=== PATIENT | female | born 1955 | race African-American/Black ===

== ENCOUNTER 2017-05-27 08:05 | Day surgery (SDC) | payer MEDICARE, SELFPAY ==
[2017-05-27] VITALS (7 sets, daily range): BP systolic 110–127; BP diastolic 69–79; PULSE 51–60; RESP 16–20; TEMP 36.2–36.6; O2SAT 100; BMI 59.4
--- NOTE | 2017-05-27 10:00 | RAD_ITS ---
STUDY: X-RAY - LEFT KNEE REASON FOR EXAM: Female, 61 years old. Intraoperative digital documentation procedural images. TECHNIQUE: 6 intraoperative digital nondiagnostic view(s) of the knee. COMPARISON: None. FINDINGS: 6 intraoperative digital nondiagnostic images of the knee were obtained during the procedure. RAD/Knee 1 or 2 Views IMPRESSION: Intraoperative nondiagnostic digital documentation images. Electronically Signed: Espinoza Kelley MD at 12:58 EST , Service support ,
[2017-05-27] MEDS: Bupivacaine 0.25% 30 ML Vial (10:18)
[2017-05-27] MEDS: MethylPREDNISolone Acetate 80 MG/ML Vial (10:18)
--- NOTE | 2017-05-27 14:48 | PCM.OPRPT ---
Problem List (1) Primary osteoarthritis of left knee Status: Chronic Report of Operation Date of Procedure: 05/27/17 Pre-Operative Diagnosis: Osteoarthritis of the left knee, none operative chronic knee pain Post-Operative Diagnosis: Osteoarthritis of the left knee, none operative chronic knee pain Surgery/Procedure Performed:: Left knee superior medial, superior lateral, inferior medial genicular nerves radiofrequency ablation Description of Surgical Findings:: PROCEDURE: Left knee superior medial, superior lateral, inferior medial genicular nerves radiofrequency ablation PREOPERATIVE DIAGNOSIS: Osteoarthritis of the left knee, chronic nonoperative knee pain POSTOPERATIVE DIAGNOSIS: Osteoarthritis of the left knee, chronic nonoperative knee pain ANESTHESIA: MAC COMPLICATIONS: None BLOOD LOSS: Minimal PROCEDURE IN DETAIL: History and physical today was reviewed. Risks and benefits of the procedure were explained. The patient understood, agreed to our procedure, and informed consent was obtained. IV inserted per routine protocol. The patient was taken to the operating room, placed in a supine position with a pillow positioned underneath the knee. The left knee was prepped and draped in a sterile fashion using iodine ?3 under fluoroscopy guidance AP view of the left knee joint was visualized skin and subcutaneous tissue were anesthetized with approximately 10 cc of 1% lidocaine using a 25-gauge regular needle at the vicinity of the superior medial/superior lateral/inferior medial genicular nerves, under direct visualization fluoroscopy on AP as well as lateral view using a 20-gauge 10 cm with a 10 mm curved active tip radiofrequency ablation needle the needle passed through the skin tip of the needle was maneuvered and directed to each corresponding nerve at the vicinity of the superior medial superior lateral inferior medial genicular nerves after repeated confirmation AP oblique as well as lateral view the stylette of each needle was then removed the radiofrequency ablation probe was then inserted at each level impedance was then recorded at the superior medial to be 275 in the superior lateral 288 at the inferior medial 263 ohm motor evoked potential was then initiated to 1.5 V without any motor response at each corresponding level or the left leg, the probe was then removed intact and a total of 6 cc of preservative-free 1% lidocaine were injected in divided doses between those 3 levels, the frequency ablation probe was then inserted and radiofrequency ablation was then initiated to 80?C for 90 seconds at each level, once concluded the probe was then removed intact and a total of 6 cc of preservative-free 0.25% Marcaine with 40 mg of Depo-Medrol were injected in divided doses between those 3 levels the needles were then removed intact. Patient experienced no sinus symptoms or intravascular injection patient experienced no paresthesia the procedure was completed without any apparent difficulty any complication the patient appeared to tolerate well sensory as well as motor exam was unchanged from prior to the procedure ASSESSMENT AND PLAN: This is a 61-year-old Female with osteoarthritis of the left knee chronic nonoperative knee pain status post left-sided radiofrequency ablation of the genicular nerves at the superior medial superior lateral inferior medial. The patient will continue her current medications. The patient will follow in approximately 2 weeks for reevaluation.
== END 2017-05-27 11:31 | disposition home or self-care (01) ==
LOC: SDC 08:06 → AC 08:08
PROVIDERS: Family Provider Internal Medicine; PCP Internal Medicine; Visit Provider Anesthesiology Pain Medicine
PROC: (CPT 64640; principal; 2017-05-27 09:40)
DX: M17.0 Bilateral primary osteoarthritis of knee (principal); G89.29 Other chronic pain; M25.551 Pain in right hip; E07.9 Disorder of thyroid, unspecified; J45.909 Unspecified asthma, uncomplicated; K21.9 Gastro-esophageal reflux disease without esophagitis; F32.9 Major depressive disorder, single episode, unspecified; E66.01 Morbid (severe) obesity due to excess calories; Z68.43 Body mass index [BMI] 50.0-59.9, adult; Z78.0 Asymptomatic menopausal state; Z79.891 Long term (current) use of opiate analgesic; Z79.899 Other long term (current) drug therapy; Z85.3 Personal history of malignant neoplasm of breast; Z98.84 Bariatric surgery status; Z90.710 Acquired absence of both cervix and uterus
CPT/HCPCS: 64640; 73560; 76000; J7120

== ENCOUNTER → 2018-05-13 10:40 | Outpatient (CLI) | payer MEDICARE, SELFPAY ==
[2018-05-13 09:31] VITALS: BMI 60.9
[2018-05-13 11:26] LABS: Absolute Neutrophil Count 2.1 X10^3/uL (2.0-7.7); Basophil# 0.03 X10^3/uL; Basophil% 0.6 % (0-1); Eosinophil# 0.12 X10^3/uL; Eosinophils% 2.6 % (0-5); Hematocrit 41.1 % (37-47); Hemoglobin 12.6 g/dl (12.0-15.0); Lymphocyte % 43.3 % (19-41); Mean Corp Hgb Conc 30.7 g/gl (32-36); Mean Platelet Vol. 10.9 fl (6.2-12.0); Monocyte# 0.36 X10^3/uL; Monocyte% 7.8 % (0-10); Neutrophil % 45.5 % (47-70); Platelet Count 228 K/mm3 (150-450); RBC Distribution Width CV 15.6 % (11.6-14.6); RBC Distribution Width SD 50.2 fl (35.1-43.9); Red Blood Count 4.67 M/mm3 (4.2-5.4); White Blood Count 4.6 K/mm3 (4.4-11.0)
[2018-05-13 11:28] LABS: POSITIVE COUNT NO; POSITIVE DIFFERENTIAL NO; POSITIVE MORPHOLOGY NO
[2018-05-13 11:35] LABS: Hemoglobin A1c 6.1 % (4.2-6.3)
[2018-05-13 11:57] LABS: ALB/GLOB Ratio 0.8 RATIO (0.9-2.4); AST(SGOT) 21 U/L (15-37); Alanine Aminotransfer ALT/SGPT 23 U/L (13-56); Albumin, Serum 3.4 g/dL (3.2-5.0); Alkaline Phosphatase 117 U/L (45-117); Anion Gap 4 (5-15); BUN 12 mg/dL (7-18); BUN/Creat Ratio 17.2 RATIO (10-20); Calcium,Total 8.7 mg/dL (8.5-10.1); Chloride 106 mmol/L (98-107); EST Glomerular Filtration Rate 90 mL/min (>60); Est Glom Filt Rate - Afr Amer 109 mL/min (>60); Globulin 4.4 g/dL (2.2-4.2); Glucose 93 mg/dL (74-106); Potassium 4.1 mmol/L (3.5-5.1); Protein, Total 7.8 g/dL (6.4-8.2); Sodium Level 140 mmol/L (136-145)
[2018-05-13 12:03] LABS: Vitamin B12 211 pg/mL (211-911); Vitamin D,25 Hydroxy 25.3 ng/mL (29.95-100.01)
== END ==
PROVIDERS: Family Provider Internal Medicine; PCP Internal Medicine; Referring Provider Internal Medicine; Visit Provider Internal Medicine
DX: K91.2 Postsurgical malabsorption, not elsewhere classified (principal); F32.9 Major depressive disorder, single episode, unspecified; E66.01 Morbid (severe) obesity due to excess calories
CPT/HCPCS: 36415; 80053; 82306; 82607; 83036; 85025

== ENCOUNTER 2018-05-26 07:51 | Day surgery (SDC) | payer MEDICARE, SELFPAY ==
[2018-05-13 09:31] VITALS: BMI 60.9
[2018-05-26 08:20] VITALS: BP 134/94; PULSE 64; RESP 16; TEMP 36.4; O2SAT 96; BMI 61.2
--- NOTE | 2018-05-26 09:48 | RAD_ITS ---
STUDY: Preoperative fluoroscopic imaging- LEFT KNEE REASON FOR EXAM: Female, 62 years old. Intraoperative fluoroscopic image TECHNIQUE: view(s) of the knee. COMPARISON: None. FINDINGS: 2 fluoroscopic images were obtained with a needle overlying the knee joint with contrast being injected. 9.2 seconds of fluoroscopy time is recorded. RAD/Fluoro Guided Needle Placement IMPRESSION: 2 fluoroscopic images were obtained with a needle overlying the knee joint with contrast being injected. 9.2 seconds of fluoroscopy time is recorded. Electronically Signed: Yamile Guevara MD at 19:16 EST Tel , Service support ,
[2018-05-26] MEDS: MethylPREDNISolone Acetate 80 MG/ML Vial (09:59)
[2018-05-26] MEDS: Bupivacaine 0.25% 30 ML Vial (10:00)
[2018-05-26 10:09] VITALS: BP 120/72; BP 134/94; PULSE 65; RESP 14; TEMP 36.4; O2SAT 100
[2018-05-26 10:15] VITALS: BP 118/69; BP 134/94; PULSE 63; RESP 14; O2SAT 99
[2018-05-26 10:16] VITALS: BP 115/73; BP 134/94; PULSE 65; RESP 14; TEMP 36.4; O2SAT 100
--- NOTE | 2018-05-26 10:26 | PCM.OPRPT ---
Problem List (1) Primary osteoarthritis of left knee Status: Chronic Report of Operation Date of Procedure: 05/26/18 Pre-Operative Diagnosis: Osteoarthritis of the left knee Post-Operative Diagnosis: Osteoarthritis of the left knee Surgery/Procedure Performed:: Left knee intra-articular steroid injection under fluoroscopic guidance Description of Surgical Findings:: PROCEDURE: Left knee intra-articular steroid injection under fluoroscopic guidance PREOPERATIVE DIAGNOSIS: Osteoarthritis of the left knee POSTOPERATIVE DIAGNOSIS: Osteoarthritis of the left knee ANESTHESIA: MAC COMPLICATIONS: None BLOOD LOSS: Minimal PROCEDURE IN DETAIL: History and physical today was reviewed. Risks and benefits of the procedure were explained. The patient understood, agreed to our procedure, and informed consent was obtained. IV inserted per routine protocol. The patient was taken to the operating room, placed in a supine position the left knee was prepped and draped in a sterile fashion using iodine x3 under fluoroscopy guidance AP view of the left knee joint was visualized skin and subcutaneous tissue were anesthetized approximately 3 cc of 1% lidocaine using a 25-gauge regular needle at the medial aspect of the left knee under direct visualization fluoroscopy on AP view using a 22-gauge 3-1/2 inch spinal needle using the medial approach the needle passed through the skin the tip of the needle's maneuver and directed towards the medial aspect of the intra-articular space after positive aspiration of synovial fluid negative aspiration for blood a total of 1 cc of contrast were injected to confirm correct placement of the needle once confirmation was obtained in AP as well as oblique view a total of 4 cc of preservative-free 0.25% Marcaine with 40 mg of Depo-Medrol were injected intra-articularly the needle was then removed intact patient experienced no signs or symptoms of intravascular injection patient experienced no paresthesia. The procedure was completed without any apparent difficult, any complication. The patient appeared to tolerate well. ASSESSMENT AND PLAN: This is a 62-year-old Female with osteoarthritis of the left knee status post left knee intra-articular steroid injection under fluoroscopic guidance. The patient will continue her current medications. The patient will follow in approximately 2 weeks for reevaluation.
[2018-05-26 10:28] VITALS: BP 134/94
--- OUTSIDE RECORDS SUMMARY | 2018-07-19 07:31 | XMS RPT_ITS ---
:1955 Author Organization OHIP Care Team Providers Name Role Phone PREBISH MICHELINE GOMEZ Attending Unavailable ARGENTINA LENNON, DR. BURT Primary Care Unavailable EMIGDIO ELAINE Attending Unavailable YEN DRIVER ([facility]) Referring Unavailable GAVI BORJA ([facility]) Attending Unavailable Roxanna Basurto Attending Unavailable Oleghe, Efewongbe Referring Unavailable Roxanna Basurto Attending Unavailable Oleghe, Efewongbe Primary Care Unavailable Oleghe, Efewongbe Attending Unavailable Oleghe, Efewongbe Referring Unavailable Jemal Yanez Attending Unavailable Oleghe, Efewongbe Referring Unavailable Oleghe, Efewongbe Attending Unavailable Oleghe, Efewongbe Referring Unavailable Oleghe, Efewongbe Attending Unavailable Oleghe, Efewongbe Referring Unavailable Oleghe, Efewongbe Primary Care Unavailable Tomas Resendiz Attending Unavailable Tomas Resendiz Referring Unavailable Oleghe, Efewongbe Primary Care Unavailable PROBLEMS PROBLEMS DATE TYPE CONDITION / CODE ATTENDING STATUS SOURCE 06/07/2018 Unknown N89.8 - Other Malik Basurto [facility] disorders of vagina / Repository N89.8(ICD-10) 05/13/2018 Unknown F32.9 - Major Oleghe, Active [place] depressive disorder, [facility] single episode, Hospital unspecified / Repository F32.9(ICD-10) 05/13/2018 Unknown 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, Active [place] malabsorption, not [facility] elsewhere classified Hospital / K91.2(ICD-10) Repository 05/13/2018 Unknown E66.01 - Morbid Oleghe, Active [place] (severe) obesity due [facility] to excess calories / Hospital E66.01(ICD-10) Repository 12/17/2017 Active Unknown / BORJA, AMY Active [place] 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) [facility] [place] Repository 07/10/2017 Active Vitamin D deficiency, NA [facility] unspecified / Clinic Main E55.9(ICD-10) [place] Repository 07/10/2017 Active Encounter for NA [facility] therapeutic drug [facility] Main level monitoring / [place] Z51.81(ICD-10) Repository PROCEDURES PROCEDURES No Procedure Records FoundRESULTS RESULTS URGENT CARE VISIT Observed: 06/08/2018 Status: F Source: [place] REPORT 12:53 PM [facility] REPOSITORY [facility] [address] [place] [address] OFFICE VISIT Date of Service: 06/07/18 MR#: [id number] Acct: [id number] Name: HALLEY SANCHEZ Rep #: [id number] : 1955 Provider: Rxoanna Basurto Age/Sex: 62/F Location: [facility] Status: Signed Intake Vital Signs06/07/18 Body Mass Index (BMI) 61.2 06/07/18 Height 5 ft 3 in 06/07/18 Weight: 345 lb 06/07/18 Body Mass Index (BMI) 61.1 06/07/18 Blood Pressure 136/88 H 06/07/18 Respiratory Rate 14 Intake Visit Reasons: VAGINAL DISCHARGE Chief Complaint: DISCHARGE/UTI Clinical Manager Home Care Required: No Accompanied by: SELF Is patient in pain?: No Allergies cephalexin Allergy (Verified 06/07/18 13:51) Itching morphine Allergy (Verified 06/07/18 13:51) Itching Medications Acetaminophen [Tylenol] 325 mg PO DAILY 11/02/15 [History Confirmed 06/07/18] Duloxetine Hcl [Cymbalta] 60 mg PO DAILY 11/02/15 [History Confirmed 06/07/18] Omeprazole [Prilosec] 20 mg PO DAILY 11/02/15 [History Confirmed 06/07/18] pregabalin 100 mg capsule 100 mg PO TID 04/09/18 [History Confirmed 06/07/18] tizanidine 4 mg capsule 4 mg PO BID PRN cap 04/09/18 [History Confirmed 06/07/18] ergocalciferol (vitamin D2) 2,000 unit tablet 2,000 unit PO DAILY #90 tab 06/02/18 [Rx Confirmed 06/07/18] ferrous gluconate 324 mg (38 mg iron) tablet 324 mg PO DAILY #90 tab 06/02/18 [Rx Confirmed 06/07/18] mecobalamin (vitamin B12) 1,000 mcg disintegrating tablet,sublingual 1,000 mcg SUBLINGUAL DAILY #180 tab 06/02/18 [Rx Confirmed 06/07/18] sulfamethoxazole 800 mg-trimethoprim 160 mg tablet 1 tab PO BID #20 tab 06/07/18 [Rx Confirmed 06/07/18] PFSH Medical History Vitamin deficiency (Chronic) Skin cancer (Chronic) Osteoarthritis (Chronic) GERD (gastroesophageal reflux disease) (Chronic) Chronic headaches (Chronic) Breast cancer (Chronic) UTI (urinary tract infection) (Resolved) Asthma (Chronic) Anemia (Chronic) Surgical History History of Achilles tendon repair (Acute) History of bilateral mastectomy (Acute) History of gastric bypass (Acute) History of partial hysterectomy (Acute) History of repair of hiatal hernia (Acute) Family History Father Alcoholism Arthritis Mother Alcoholism Sister Asthma Arthritis Breast cancer Depression Brother Asthma Myocardial infarction Social History Smoking Status: Never smoker alcohol intake: never substance use type: does not use what type of physical activity do you participate in: none HPI HPI Chief Complaint: DISCHARGE/UTI Details: HALLEY SANCHEZ, is a 62 F who presents to the office today for urgent appt. Pt sts that she has noted white d/c in the vaginal area. She also noted frequent urination and burning. She feel shilpi head is foggy and questions if she has a bladder infection. ROS Const Constitutional: Positive for body ache and fatigue; no fever(s) or headache(s) Eyes Eyes: No light sensitivity, discharge or change in vision ENT ENT: No headache(s), nasal congestion, nasal discharge, sinus pressure, post nasal drip or sore throat Resp Respiratory: No cough Cardio Cardiology: No chest pain at rest, chest pain with exertion or shortness of breath Gastro GI: No diarrhea, nausea/dyspepsia or Vomiting blood/hematemesis Genitourinary-Female: Positive for burning urination, painful urination, urinary frequency, Vaginal Itching and vaginal odor Neuro Neurology: No headache(s) Endo Endocrine: Positive for fatigue Exam Const General: cooperative, no acute distress Nutritional Appearance: obese Orientation: alert, oriented x3 HENMT Head: atraumatic, normocephalic Nose: nasal mucous membranes and turbinates normal Mouth: moist mucous membranes Eyes Sclera: sclerae normal Cornea: corneas normal Pupils: PERRL EOM: EOM intact bilaterally Neck Neck: no lymphadenopathy, trachea midline, supple Neck mass: No Thyroid: thyroid normal Resp Effort AND Inspection: normal respiratory effort Auscultation: Bilateral: Clear to Auscultation Cardio Palpation: normal PMI Rate: regular rate Rhythm: regular rhythm Heart Sounds: S1 normal, S2 normal, no click, no gallops, no murmurs, no rubs GI Auscultation: normal bowel sounds Percussion: normal to percussion Palpation: soft, no hepatosplenomegaly, nontender Skin General: no rashes or lesions noted Neuro General: alert, oriented x3, CN's II-XI intact bilaterally, no focal motor deficits Results [facility] Office Urine Color Yellow Last Edit by Eugenia Colindres on 06/07/18 13:54 LARGE AMOUNT OF LEUKOCYTES Assessment AND Plan Problems 1. Acute cystitis with hematuria N30.01 2. Vaginal candidiasis B37.3 Plan Advised pt that we do no do vaginal exams and is symptoms do not improve to see PCP. Urine +, will send out culture. Advised to use antx. diflucan as directed. Advised of adequate fluid hydration Orders Orders: Medications New: Discontinued: fluconazole (Diflucan) may repeat second dose 72 hrs 150 mg PO Q3D 2 doses 2 tabs 0RF after first dose if symptoms persist Discontinued [place] son: By Stop Date Coding Level of Care Code Off vis,new,level 3 Diagnoses Acute cystitis with hematuria N30.01 Hematuria presence: with hematuria Urinary tract infection type: acute cystitis Vaginal candidiasis B37.3 06/08/18 1253 <Electronically signed by Roxanna HARRINGTON> Date Roxanna HARRINGTON Cosigner Signature: Date (if applicable) CC: URINALYSIS, COMPLETE Collected: 06/07/2018 Status: F Source: [place] 1:50 PM [facility] REPOSITORY Order Comment: How was Urine Obtained? CLEAN CATCH TYPE CODE TESTS RESULT OUT OF RANGE REFERENCE UNITS LAB L400.3000 Yellow COLOR Normal Yellow LAB L400.3050 Clear Normal CLARITY Clear LAB L400.3200 Normal mg/dl Normal GLUCOSE, UR Normal LAB L400.3300 Negative mg/dL Normal BILIRUBIN URINE Negative LAB L400.3400 Negative mg/dl Normal KETONE UR Negative LAB L400.3465 1.002-1.030 Normal SP.GR. DIPSTX 1.010 LAB L400.3550 5.0 - 8.0 pH UR Normal 7.0 LAB L400.3600 Negative mg/dl PROT Normal DIPSTX Negative LAB L400.3700 Normal mg/dl Normal UROBILI Normal LAB L400.3750 Negative Normal NITRITE UR Negative LAB L400.3780 Negative /ul Normal OCCULT BLOOD-UR Negative LAB L400.3800 Negative /ul High LEUK ESTERASE 500 LAB L400.4050 0-5 /hpf WBC Normal 5-10 SEEN LAB L400.4100 0-5 /hpf 0 Normal RBC-UA SEEN LAB L400.4150 5-10 /hpf SQUAM Normal EPI 0-5 SEEN LAB L400.4300 None Seen /hpf 1+ Normal BACTERIA LAB L400.4350 <or=2+ /hpf 0 Normal MUCUS, URINE SEEN Performed By: #### L400.0001 #### Laboratory [address] [place], [address] Observed: 06/07/2018 Status: F Source: [place] CULTURE, URINE 1:50 PM [facility] REPOSITORY Urine Culture ORGANISM 1: Mixed Gram Positive Organisms [place] Count 1000-10,000 MIX CULTURE Mixed contaminants. Submit a new specimen if indicated. Performed By: #### M100.0650 #### Laboratory [address] [place], [address] OPERATIVE REPORT Observed: 05/26/2018 Status: F Source: [place] 10:30 AM [facility] REPOSITORY [facility] Medical Records Department [address] [place] [address] Operative Report 05/26/18 1026 MR#: [id number] Acct: [id number] Name: HALLEY SANCHEZ Rep #: [id number] : 1955 62 From: Tomas Resendiz MD PCP: Catrachita Ham MD Status: REG [facility] Location: [place] [address] Problem List (1) Primary osteoarthritis of left knee Status: Chronic Report of Operation Date of Procedure: 05/26/18 Pre-Operative Diagnosis: Osteoarthritis of the left knee Post-Operative Diagnosis: Osteoarthritis of the left knee Surgery/Procedure Performed:: Left knee intra-articular steroid injection under fluoroscopic guidance Description of Surgical Findings:: PROCEDURE: Left knee intra-articular steroid injection under fluoroscopic guidance PREOPERATIVE DIAGNOSIS: Osteoarthritis of the left knee POSTOPERATIVE DIAGNOSIS: Osteoarthritis of the left knee ANESTHESIA: MAC COMPLICATIONS: None BLOOD LOSS: Minimal PROCEDURE IN DETAIL: History and physical today was reviewed. Risks and benefits of the procedure were explained. The patient understood, agreed to our procedure, and informed consent was obtained. IV inserted per routine protocol. The patient was taken to the operating room, placed in a supine position the left knee was prepped and draped in a sterile fashion using iodine x3 under fluoroscopy guidance AP view of the left knee joint was visualized skin and subcutaneous tissue were anesthetized approximately 3 cc of 1% lidocaine using a 25-gauge regular needle at the medial aspect of the left knee under direct visualization fluoroscopy on AP view using a 22-gauge 3-1/2 inch spinal needle using the medial approach the needle passed through the skin the tip of the needle's maneuver and directed towards the medial aspect of the intra-articular space after positive aspiration of synovial fluid negative aspiration for blood a total of 1 cc of contrast were injected to confirm correct placement of the needle once confirmation was obtained in AP as well as oblique view a total of 4 cc of preservative-free 0.25% Marcaine with 40 mg of Depo-Medrol were injected intra- articularly the needle was then removed intact patient experienced no signs or symptoms of intravascular injection patient experienced no paresthesia. The procedure was completed without any apparent difficult, any complication. The patient appeared to tolerate well. ASSESSMENT AND PLAN: This is a 62-year-old Female with osteoarthritis of the left knee status post left knee intra-articular steroid injection under fluoroscopic guidance. The patient will continue her current medications. The patient will follow in approximately 2 weeks for reevaluation. 05/26/18 1030 <Electronically signed by Tomas Resendiz MD> Date Tomas Resendiz MD CC: Catrachita Ham MD; Tomas Resendiz Signed FLUORO GUIDED NEEDLE Observed: 05/26/2018 Status: F Source: [place] PLACEMENT 3:26 AM [facility] REPOSITORY [facility] Imaging Services [address] [place] [address] Fluoro Guided Needle Placement MR#: [id number] Acct: [id number] Name: HALLEY SANCHEZ Rep #: [id number] : 1955 F 62 From: Yamile Guevara MD PCP: Catrachita Ham MD Status: [facility] Study: Fluoro Guided Needle Placement Date of Exam: 05/26/18 Exam# [id number] Ordering Dr: Tomas Resendiz MD STUDY: Preoperative fluoroscopic imaging- LEFT KNEE REASON FOR EXAM: Female, 62 years old. Intraoperative fluoroscopic image TECHNIQUE: view(s) of the knee. COMPARISON: None. FINDINGS: 2 fluoroscopic images were obtained with a needle overlying the knee joint with contrast being injected. 9.2 seconds of fluoroscopy time is recorded. RAD/Fluoro Guided Needle Placement IMPRESSION: 2 fluoroscopic images were obtained with a needle overlying the knee joint with contrast being injected. 9.2 seconds of fluoroscopy time is recorded. Electronically Signed: Yamile Guevara MD at 19:16 EST Tel , Service support , CC: Cartachita Ham MD; Tomas Resendiz Wildlife [employer] Research Ecologist: Signed INTERNAL MEDICINE Observed: 05/13/2018 Status: F Source: [place] OFFICE VISIT 5:12 PM [facility] Internal Medicine [address] [place] [address] [place] [address] OFFICE VISIT Date of Service: 05/13/18 MR#: [id number] Acct: [id number] Name: HALLEY SANCHEZ Rep #: [id number] : 1955 Provider: Catrachita Ham MD Age/Sex: 62/F Location: [facility] Status: Signed Intake Vital Signs05/13/18 Height 5 ft 3 in 05/13/18 Weight: 344 lb 05/13/18 Body Mass Index (BMI) 60.9 05/13/18 Blood Pressure 143/82 H Intake Visit Reasons: 1 mo f/u Chief Complaint: 1 Mo FU Is patient in pain?: Yes (Rt groin AND knees) Pain scale (1-10): 7 Allergies cephalexin Allergy (Verified 05/13/18 09:32) Itching morphine Allergy (Verified 05/13/18 09:32) Itching Medications Acetaminophen [Tylenol] 325 mg PO DAILY 11/02/15 [History Confirmed 05/13/18] Duloxetine Hcl [Cymbalta] 60 mg PO DAILY 11/02/15 [History Confirmed 05/13/18] Omeprazole [Prilosec] 20 mg PO DAILY 11/02/15 [History Confirmed 05/13/18] pregabalin 100 mg capsule 100 mg PO TID 04/09/18 [History Confirmed 05/13/18] tizanidine 4 mg capsule 4 mg PO BID PRN cap 04/09/18 [History Confirmed 05/13/18] [facility] Medical History Vitamin deficiency (Chronic) Skin cancer (Chronic) Osteoarthritis (Chronic) GERD (gastroesophageal reflux disease) (Chronic) Chronic headaches (Chronic) Breast cancer (Chronic) UTI (urinary tract infection) (Resolved) Asthma (Chronic) Anemia (Chronic) Surgical History History of Achilles tendon repair (Acute) History of bilateral mastectomy (Acute) History of gastric bypass (Acute) History of partial hysterectomy (Acute) History of repair of hiatal hernia (Acute) Family History Father Alcoholism Arthritis Mother Alcoholism Sister Asthma Arthritis Breast cancer Depression Brother Asthma Myocardial infarction Social History Smoking Status: Never smoker alcohol intake: never substance use type: does not use what type of physical activity do you participate in: none HPI HPI Chief Complaint: 1 Mo FU Details: HALLEY SANCHEZ, is a 62yo F who presents to the office today for follow-up of groin/hip/abdominal pain. This pain he says have been ongoing for many years. Investigations done at the [facility] were without any significant abnormality. She also had a CAT scan done in 2013 without any significant abnormality. Currently following up with pain management so far there has been no significant improvement in both his knee and hip pain. She denies any concerns with bowel or bladder habits. No history of falls. No blood in her stool she also denies nausea or vomiting. ROS Const Constitutional: No chills, fatigue, fever(s), frequent falls, malaise, weakness, sleep problems or change in appetite Eyes Eyes: No blurry vision, change in vision, double vision, discharge or visual disturbances ENT ENT: No abnormal hearing, ear pain, ear pressure, tinnitus or dizziness/vertigo Resp Respiratory: No cough, shortness of breath or wheezing Cardio Cardiology: No chest pain at rest, chest pain with exertion, shortness of breath, dyspnea on exertion, generalized swelling, irregular heart rhythm, lightheadedness, orthopnea, fast heart rate or palpitations Gastro GI: Positive for abdominal pain (Rt groin); no change in bowel habits, constipation, diarrhea, nausea/dyspepsia or vomiting Genitourinary-Female: No difficulty urinating, burning urination, painful urination, urinary incontinence, urinary frequency, urinary urgency, urinary hesitancy, urinary retention, Frequent nighttime urination/ nocturia, sexual problems, genital lesions, abnormal vaginal bleeding, pelvic pain, vaginal dryness, vaginal odor or Vaginal Itching Musc Musculoskeletal: Positive for joint pain (Knees); no back pain, joint swelling, limited range of motion, numbness, tingling or muscle weakness Skin Skin: No change in skin color, itching, rash or wounds Breast Breast: No breast lump or breast pain Neuro Neurology: No frequent falls, weakness, visual disturbances, abnormal hearing, numbness, tingling, unsteady gait/balance, dizziness, loss of vision or memory loss Psych Psychiatric: No change in appetite, No memory loss, No anxiety, No depression, No Thoughts of harming yourself/Others Endo Endocrine: No fatigue, heat intolerance, increased thirst/drinking, increased hunger or increased urination Aller/Imm Allergy/Immunologic: No wheezing, itchy eyes or seasonal allergy symptoms Jose/Lymp Hematologic/Lymphatic: No easy bleeding, easy bruising or enlarged lymph nodes Exam Const General: cooperative, no acute distress Nutritional Appearance: obese morbidly obese [facility] Head: atraumatic, normocephalic, normal to inspection Ears: hearing grossly normal bilaterally Resp Effort AND Inspection: normal respiratory effort, able to speak in complete sentences Auscultation: Bilateral: Clear to Auscultation Cardio Rate: regular rate Rhythm: regular rhythm Heart Sounds: S1 normal, S2 normal GI Palpation: soft (Mild tenderness on deep palpation of the left lower quadrant.), no hepatosplenomegaly Musc Musculoskeletal: No muscle weakness Neuro General: alert, awake, oriented x3, moves all extremities, CN's II-XI intact bilaterally Extrem General: no clubbing, cyanosis or edema Psych Appearance: grossly normal Mental Status: mental status grossly normal Affect: normal affect Assessment AND Plan 1. Abdominal pain R10.9 Plan Primarily right groin pain. Most likely referred pain from her back. Review of her records with no significant abnormality based on investigations done so far. Currently following up with pain management. Continue plan as per pain management. Weight loss strongly recommended. 2. 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 Labs ordered. Follow-up with results. Orders Orders: 3. Morbid obesity E66.01 Plan Status post gastric bypass. 9 with a BMI of 60. Had been with the why weight program without any significant improvement. Lifestyle and dietary modifications discussed. Readdress at next visit. This note was generated with Ne[employer]ensation software. It may contain incorrect words, spelling, and punctuation that were not noted in checking the note before signing. Orders Orders: Plan Detail Other Orders Orders: Coding Level of Care Code Off vis,est,level 4 Diagnoses Abdominal pain R10.9 Postoperative malabsorption K91.2 Morbid obesity E66.01 05/13/18 1712 <Electronically signed by Catrachita Ham MD> Date Catrachita Ham MD Cosigner Signature: Date (if applicable) CC: CBC W/DIFF, AUTOMATED Collected: 05/13/2018 Status: F Source: [place] 10:45 AM [facility] REPOSITORY TYPE CODE TESTS RESULT OUT OF RANGE REFERENCE UNITS LAB L100.1000 4.4-11.0 K/mm3 Normal WBC 4.6 LAB L100.1200 4.2-5.4 M/mm3 Normal RBC 4.67 LAB L100.1300 12.0-15.0 g/dl Normal HGB 12.6 LAB L100.1400 37-47 % Normal HCT 41.1 LAB L100.1500 81-99 fL Normal MCV 88.0 LAB L100.1600 27.0-32.0 pg Normal MCH 27.0 LAB L100.1700 32-36 g/gl Low MCHC 30.7 LAB L100.1810 11.6-14.6 % High RDW CV 15.6 LAB L100.1820 35.1-43.9 fl High RDW SD 50.2 LAB L100.1900 150-450 K/mm3 Normal PLT 228 LAB L100.2000 6.2-12.0 fl Normal MPV 10.9 LAB L100.2100 47-70 % Low NEUT% 45.5 LAB L100.2200 19-41 % High LY% 43.3 LAB L100.2300 0-10 % Normal MONO% 7.8 LAB L100.2400 0-5 % Normal EO% 2.6 LAB L100.2500 0-1 % Normal BASO% 0.6 LAB L100.2550 0.0-0.9 % Normal IM GRAN % 0.200 Result Comment: IG% - Immature Granulocytes (promyelocytes, myelocytes and metamyelocytes) > 1% indicates that a LEFT SHIFT is Present. LAB L100.2620 2.0-7.7 X10 3/uL Normal Absolute Neut 2.1 LAB L100.2720 0.83-4.51 X10 3/ul Normal Absolute Lymph 2.00 Performed By: #### L100.0100 #### Laboratory [address] [place], [place], [id number] HEMOGLOBIN A1C Collected: 05/13/2018 Status: F Source: [place] 10:45 AM [facility] REPOSITORY TYPE CODE TESTS RESULT OUT OF RANGE REFERENCE UNITS LAB L501.9985 4.2-6.3 % Normal HGB A1C 6.1 Performed By: #### L501.9985 #### Laboratory [address] [place], [address] COMPREHENSIVE METABOLIC Collected: 05/13/2018 Status: F Source: [facility] 10:45 AM [facility] REPOSITORY TYPE CODE TESTS RESULT OUT OF RANGE REFERENCE UNITS LAB L501.0100 74-106 mg/dL Normal GLU 93 Result Comment: Please note revised GLUCOSE reference range effective 2017. LAB L501.1000 7-18 mg/dL Normal BUN 12 LAB L501.1100 0.55-1.02 mg/dL Normal CREAT,SERUM 0.70 Result Comment: The validity of the calculated GFR AND GFRAA in patients over 70 years has not been determined. Clinical correlation is essential. LAB L501.1110 >60 mL/min Normal EST GFR 90 Result Comment: Non- GFR Calc LAB L501.1115 >60 mL/min Normal EST GFR - AA 109 Result Comment: GFR Calc LAB L501.1300 10-20 RATIO Normal BUN/CRE 17.2 LAB L501.1500 6.4-8.2 g/dL T Normal PROT 7.8 LAB L501.1800 3.2-5.0 g/dL Normal ALB 3.4 LAB L501.1950 2.2-4.2 g/dL High GLOB 4.4 LAB L501.2000 0.9-2.4 RATIO Low A/G 0.8 LAB L501.2200 8.5-10.1 mg/dL CA Normal 8.7 LAB L501.4100 15-37 U/L Normal AST 21 LAB L501.4305 45-117 U/L Normal ALK P 117 LAB L501.4405 13-56 U/L Normal ALT 23 LAB L501.4600 0.20-1.00 mg/dL T Normal BILI 0.80 LAB L501.5300 136-145 mmol/L NA Normal 140 LAB L501.5600 3.5-5.1 mmol/L K Normal 4.1 LAB L501.5900 98-107 mmol/L CL Normal 106 LAB L501.6100 21.0-32.0 mmol/L Normal CO2 30.0 LAB L501.6200 5-15 Low GAP 4 Performed By: #### L500.4050 #### Laboratory [address] [place], [address] VITAMIN B12 Collected: 05/13/2018 Status: F Source: [place] 10:45 AM [facility] REPOSITORY TYPE CODE TESTS RESULT OUT OF RANGE REFERENCE UNITS LAB L503.0105 211-911 pg/mL Normal Vitamin B12 211 Performed By: #### L503.0105, L506.1000 #### Laboratory [address] [place], [address] VITAMIN D,25 HYDROXY Collected: 05/13/2018 Status: F Source: [place] 10:45 AM [facility] REPOSITORY TYPE CODE TESTS RESULT OUT OF REFERENCE UNITS RANGE LAB L506.1000 29.95-100.01 ng/mL Low Vitamin D 25.3 25-OH Result Comment: Vitamin D 25(OH) Status Range Deficiency <20 ng/mL (50nmol/L) Insuffciency 20 - 30 ng/mL (50 - 75 nmol/L) Sufficiency 30 - 100 ng/mL (75 - 250 nmol/L) Toxicity >100 ng/mL (>250 nmol/L) Performed By: #### L503.0105, L506.1000 #### Laboratory [address] [place], [address] INTERNAL MEDICINE Observed: 04/10/2018 Status: F Source: [place] OFFICE VISIT 5:24 PM [facility] REPOSITORY [facility] [address] [place] [address] OFFICE VISIT Date of Service: 04/09/18 MR#: [id number] Acct: [id number] Name: HALLEY SANCHEZ Rep #: [id number] : 1955 Provider: Catrachita Ham MD Age/Sex: 62/F Location: [facility] Status: Signed Intake Vital Signs04/09/18 Height 5 ft 3 in 04/09/18 Weight: 340 lb 04/09/18 Body Mass Index (BMI) 60.2 04/09/18 Blood Pressure 132/66 H Intake Visit Reasons: EST CARE, TRANSF FROM [facility] Chief Complaint: Est Care - Transfer from [facility] Is patient in pain?: Yes (LLQ) Pain scale (1-10): 7 Allergies cephalexin Allergy (Verified 04/09/18 16:17) Itching morphine Allergy (Verified 04/09/18 16:17) Itching Medications Acetaminophen [Tylenol] 325 mg PO DAILY 11/02/15 [History Confirmed 04/09/18] Duloxetine Hcl [Cymbalta] 60 mg PO DAILY 11/02/15 [History Confirmed 04/09/18] Omeprazole [Prilosec] 20 mg PO DAILY 11/02/15 [History Confirmed 04/09/18] pregabalin 100 mg capsule 100 mg PO TID 04/09/18 [History Confirmed 04/09/18] tizanidine 4 mg capsule 4 mg PO BID PRN cap 04/09/18 [History Confirmed 04/09/18] PFSH Medical History Vitamin deficiency (Chronic) Skin cancer (Chronic) Osteoarthritis (Chronic) GERD (gastroesophageal reflux disease) (Chronic) Chronic headaches (Chronic) Breast cancer (Chronic) UTI (urinary tract infection) (Resolved) Asthma (Chronic) Anemia (Chronic) Surgical History History of Achilles tendon repair (Acute) History of bilateral mastectomy (Acute) History of gastric bypass (Acute) History of partial hysterectomy (Acute) History of repair of hiatal hernia (Acute) Family History Father Alcoholism Arthritis Mother Alcoholism Sister Asthma Arthritis Breast cancer Depression Brother Asthma Myocardial infarction Social History Smoking Status: Never smoker alcohol intake: never substance use type: does not use what type of physical activity do you participate in: none HPI HPI Chief Complaint: Est Care - Transfer from [facility] Details: HALLEY SANCHEZ, is a 62yo F who presents to the office today establish care. She had previously followed up at the [facility]. She also has some complaints. She reports left lower abdominal pain which has been ongoing for several years and has progressively worsened. Per patient pain is said to be worse in the morning and from rising from a sitting position. There has been no associated change in bowel habit. She denies any known precipitating or significantly relieving factors. She has been worked up in the past without any abnormality detected. She also currently follows up with pain management. ROS Const Constitutional: No chills, fever(s), frequent falls, malaise, sleep problems or change in appetite Eyes Eyes: No blurry vision, change in vision, double vision, discharge or visual disturbances ENT ENT: No abnormal hearing, ear pain, ear pressure, tinnitus or dizziness/vertigo Resp Respiratory: No cough, shortness of breath or wheezing Cardio Cardiology: No chest pain at rest, chest pain with exertion, shortness of breath, dyspnea on exertion, generalized swelling, irregular heart rhythm, lightheadedness, orthopnea, fast heart rate or palpitations Gastro GI: Positive for abdominal pain (LLQ); no change in bowel habits, constipation, diarrhea or vomiting Genitourinary-Female: No difficulty urinating, burning urination, painful urination, urinary incontinence, urinary frequency, urinary urgency, urinary hesitancy, urinary retention, Frequent nighttime urination/ nocturia, sexual problems, genital lesions, abnormal vaginal bleeding, pelvic pain, vaginal dryness, vaginal odor or Vaginal Itching Musc Musculoskeletal: Positive for back pain (Lower left side) and radiating pain into limb (Left thigh); no joint swelling, limited range of motion, muscle weakness, numbness or tingling Skin Skin: No change in skin color, itching, rash or wounds Breast Breast: No breast lump or breast pain Neuro Neurology: No frequent falls, abnormal hearing, numbness, tingling, unsteady gait/balance, dizziness, loss of vision, memory loss or visual disturbances Psych Psychiatric: No memory loss, No anxiety, No change in appetite, Positive for depression, No Thoughts of harming yourself/Others Endo Endocrine: No heat intolerance, increased thirst/drinking, increased hunger or increased urination Aller/Imm Allergy/Immunologic: No wheezing, itchy eyes or seasonal allergy symptoms Jose/Lymp Hematologic/Lymphatic: No easy bleeding, easy bruising or enlarged lymph nodes Exam Const General: cooperative, no acute distress Nutritional Appearance: obese morbidly obese [facility] Head: atraumatic, normocephalic, normal to inspection Ears: hearing grossly normal bilaterally Resp Effort AND Inspection: normal respiratory effort, able to speak in complete sentences Auscultation: Bilateral: Clear to Auscultation Cardio Rate: regular rate Rhythm: regular rhythm Heart Sounds: S1 normal, S2 normal GI Palpation: soft (Mild tenderness on deep palpation of the left lower quadrant.), no hepatosplenomegaly Musc Musculoskeletal: No muscle weakness Neuro General: alert, awake, oriented x3, moves all extremities, CN's II-XI intact bilaterally Extrem General: no clubbing, cyanosis or edema Psych Appearance: grossly normal Mental Status: mental status grossly normal Affect: normal affect Assessment AND Plan 1. Abdominal pain R10.9 Plan Said to have been ongoing for years and has progressively worsened. Workup in the past without any significant abnormality however patient states that she has not gotten a CAT scan or MRI. No change in bowel habit, blood in stool or weight changes. Will request records from the [facility]. Possibly get a CAT scan on review of records. Follow-up in a month. 2. Depression F32.9 Plan Stable. Continue current medication. Follow-up at next visit 3. Morbid obesity E66.01 Plan Status post gastric bypass surgery. However significantly regained weight after surgery. Currently following up at the bariatric center at [facility]. Lifestyle/dietary modifications discussed. Follow-up at next visit. This note was generated with Neosensation software. It may contain incorrect words, spelling, and punctuation that were not noted in checking the note before signing. Plan Detail Other Medications New: Coding Level of Care Code Off vis,new,level 3 Diagnoses Abdominal pain R10.9 Depression F32.9 Morbid obesity E66.01 04/10/18 1724 <Electronically signed by Catrachita Ham MD> Date Catrachita Ham MD Cosigner Signature: Date (if applicable) CC: Observed: 12/17/2017 Status: F Source: [place] BACT/CAND VAG [facility] 11:35 AM [facility] REPOSITORY Sp. Request/Comment: - Swab Smear Result - BACTERIAL VAGINOSIS RESULT: Stain results consistent with bacterial vaginosis. --> ABNORMAL ALERT No Yeast observed Clue cells present --> ABNORMAL ALERT No Polymorphonuclear Leukocytes Performed By: #### BVCNSM #### [facility] [address], [place] [address] CNOV Observed: 12/17/2017 Status: COMPLETED Source: [place] 11:00 AM [facility] REPOSITORY Office Visit (WOOB) DANIELHALLEY Lakeisha ([id number]) 1955 F Date Time Provider Department 12/17/17 11:00 AM GAVI BORJA ([facility]) WOOB During your visit today, we recorded the following information about you: Blood pressure Weight 126/82 156.5 kg Gavi Borja APRN.SHEET METAL PATTERN CUTTER 12/17/2017 2:23 PM Addendum Halley Sanchez is a 62 year old female who presents for vaginal pruritis for 3 days. Has noticed vaginal dryness for the past few years. Vaginal discharge: none. Itching: YES Dyspareunia: N/A Fever/chills: No Abdominal pain: Yes, long-term for years - no definitive diagnosis Bladder: frequency Bowel: No blood in stool, pain with BM, tarry stool, persistent diarrhea or constipation Any new sexual partners or concern for STD exposure: No Any history of STDs: None Does your partner have any new complaints: No Are you currently taking any medications to treat vaginitis: No Do you use feminine sprays, douches or deodorants: No} Contraception: hysterectomy Past medical, surgical, social history, medications and allergies reviewed and updated. OBJECTIVE: BP 126/82 Wt 345 lb (156.5kg) LMP 04/07/2011 GENERAL: Well developed, well nourished female in no apparent distress ABDOMEN: soft, no masses and Mild tenderness in Generalized PELVIC: external genitalia normal, normal Bartholin's glands, urethra, [place]'s glands, no vulvar lesions, no cervical lesions, good vaginal support, normal appearing perineal body and perianal region, abnormal discharge small amount white BIMANUAL: unable to evaluate due to body habitus. Component Results Component Value Range AND Units Status Performing Lab Glucose, Urine neg Neg mg/dL Final Unknown Bilirubin, Urine neg Neg Final Unknown Ketones, Urine neg Neg Final Unknown Specific [place], Ur 1.010 1.005 - 1.030 Final Unknown Hemoglobin/Blood,Ur neg Neg Final Unknown pH, Urine 5.0 4.5 - 8.0 Final Unknown Protein, Urine neg Neg mg/dL Final Unknown Urobilinogen, Urine normal Normal (<1.1) EU Final Unknown Nitrites neg Neg Final Unknown Leukocytes neg Neg Final Unknown Color/Appearance yellow, clear comment: Final Unknown Quality Check Yes yes/no Final Unknown ASSESSMENT/PLAN: 1. Dysuria - ICD9: 788.1, ICD10: R30.0 (primary diagnosis) acute - UA DIP B/O - negative 2. Vagina itching - ICD9: 698.1, ICD10: L29.8 - CLOTRIMAZOLE-BETAMETHASONE 1 %-0.05 % TOPICAL CREAM - BACT/DANETTE VAG GRAM STAIN - RAPID BV B/O - positive - Given verbal and written instruction on vulvar hygiene. - Replens lubricant for intercourse and a moisturizer for vaginal dryness. Or KY jelly for intercourse. - Coconut oil. - Lotrisone cream as needed. - Florajen-3 probiotic Will notify of lab results. Follow-up as needed. MARIUSZ Alvarez APRN.CNP 12/17/2017 11:30 AM Signed Minimizing irritation of the vulva (area around the vagina) Wear white cotton underwear. Avoid synthetic fabrics and tight clothing. Sleep wearing shorts or pajama bottoms without underwear. Shower as soon as possible after exercise. Avoid clothing detergents and soaps with perfumes or dyes. Use warm (not hot) water to wash the vulva and if you use soap use a product designed for sensitive skin (like Dove or Cetaphil). Do not douche or use creams/powders in the vulvar area unless instructed by your physician. If you must douche, use only plain warm water. Make sure the vulva is dry before dressing by patting dry with a towel. Avoid vigorous rubbing with the towel. You may want to use the blow dryer (on the cool setting only!) on the vulva. The most important way to let your body heal is by avoiding scratching. Many patients find it difficult to avoid scratching at night when they are most aware of the itchiness. You can try taking Benadryl just before bedtime. Some women find it helpful to wear cotton gloves to bed to avoid scratching at night. Replens lubricant for intercourse and a moisturizer for vaginal dryness. Or KY jelly for intercourse. Coconut oil. Lotrisone cream as needed. Florajen-3 probiotic Referring Provider: SELF [200] Allergies As of Date: 12/17/2017 Noted Allergy Reaction CEPHALEXIN 02/17/2005 7 - Swelling MORPHINE 12/26/2006 9 - Itching Date Reviewed: 12/17/2017 Reviewed by: Gavi Borja - Fully Assessed Primary Visit Diagnosis:Vagina itching [L29.8] Other Visit Diagnoses:BV (bacterial vaginosis) [N76.0, B96.89] Dysuria [R30.0] Order(s):UA DIP B/O [8760105] Order #: [id number] clotrimazole-betamethasone 1-0.05 % (LOTRISONE)Disp: Rfl: BACT/DANETTE VAG GRAM STAIN [SQBVCNSM] Order #: [id number] FUTURE RAPID BV B/O [8191421] Order #: [id number] metroNIDAZOLE (FLAGYL) 500 mg tabletTake 1 tablet by mouth twice daily for 7 days.Disp: 14 tabletRfl: 0 Prescriptions as of 12/17/2017 Sig: METRONIDAZOLE 500 MG TABLET Take 1 tablet by mouth twice * OMEPRAZOLE 20 MG CAPSULE,DANNY* take 1 capsule by mouth once * MOMETASONE 50 MCG/ACTUATION N* Use 2 Sprays in the nose once* ALBUTEROL SULFATE HFA 90 MCG/* inhale 2 puffs by mouth every* PREGABALIN 100 MG CAPSULE Take 100 mg by mouth three ti* BACLOFEN 10 MG TABLET Take 10 mg by mouth twice jayden* DICLOFENAC 1 % TOPICAL GEL Apply 1 g to affected area on* ERGOCALCIFEROL (VITAMIN D2) 5* Take 1 capsule by mouth twice* IPRATROPIUM BROMIDE 42 MCG (0* place 2 sprays into each nost* LIDOCAINE 2 % MUCOSAL JELLY Apply 1 application to affect* Patient not taking: Reported on 11/05/2017 DULOXETINE 60 MG CAPSULE,DANNY* Take 1 capsule by mouth once * TRIAMCINOLONE ACETONIDE 0.1 %* Apply 1 application to affect* Patient not taking: Reported on 11/05/2017 HEATING PADS 1 Each once daily. use one XL* * PEDIATRIC MULTIVITAMIN-IRON C* 1 tablet once daily. Take by * Problem List As Of Date 12/17/2017 Noted Resolved MORBID OBESITY [E66.01] INVALID FOR* Eating disorder, unspecified [F50.9] INVALID FOR* Severe episode of recurrent major depressive di*INVALID FOR* CHRONIC RHINITIS [J31.0] INVALID FOR* More... Malignant neoplasm of breast (female), unspecif*INVALID FOR*11/05/2013 More... Anemia, unspecified [D64.9] INVALID FOR*06/23/2014 Abdominal pain, other specified site [R10.9] INVALID FOR*01/01/2011 Migraine without aura, without mention of intra*INVALID FOR*11/05/2013 Other bursitis disorders [M71.50] INVALID FOR*08/09/2011 Vitamin D deficiency [E55.9] INVALID FOR* Bronchitis, not specified as acute or chronic [*INVALID FOR*07/03/2013 Lumbar radicular syndrome [M54.16] INVALID FOR* Symptomatic states associated with artificial m*INVALID FOR*11/05/2013 Insomnia [G47.00] INVALID FOR* Vitamin D deficiency [E55.9] INVALID FOR*06/06/2010 Obstructive Sleep Apnea (Adult) (Pediatric) [G4*INVALID FOR* More... Abnormal weight gain [R63.5] INVALID FOR*06/25/2011 Pernicious Anemia [D51.0] INVALID FOR* ER+ (Estrogen Receptor Positive Status) [Z17.0] INVALID FOR* Breast Cancer, Stage 1 [C50.919] INVALID FOR* More... Dysphagia [R13.10] INVALID FOR*11/05/2013 Abdominal pain, epigastric [R10.13] INVALID FOR*01/01/2011 Heel pain [M79.673] INVALID FOR*06/23/2014 Vitamin B 12 deficiency [E53.8] INVALID FOR* DJD (degenerative joint disease) of knee [M17.1*INVALID FOR* More... Complex endometrial hyperplasia without atypia *INVALID FOR*11/05/2016 Gastric bypass status for obesity [Z98.84] INVALID FOR* Left knee pain [M25.562] INVALID FOR*11/05/2013 Tendonitis [M77.9] INVALID FOR*11/05/2013 Congenital pes planus [Q66.50] INVALID FOR*11/05/2016 RLQ abdominal pain [R10.31] INVALID FOR*08/11/2015 Abdominal muscle strain [S39.011A] INVALID FOR*08/11/2015 Chronic RLQ pain [R10.31, G89.29] INVALID FOR* Lichen planus [L43.9] INVALID FOR* More... Urge incontinence of urine [N39.41] INVALID FOR* Chronic pain disorder [G89.4] INVALID FOR* More... Other instructions from your clinician: Minimizing irritation of the vulva (area around the vagina) Wear white cotton underwear. Avoid synthetic fabrics and tight clothing. Sleep wearing shorts or pajama bottoms without underwear. Shower as soon as possible after exercise. Avoid clothing detergents and soaps with perfumes or dyes. Use warm (not hot) water to wash the vulva and if you use soap use a product designed for sensitive skin (like Dove or Cetaphil). Do not douche or use creams/powders in the vulvar area unless instructed by your physician. If you must douche, use only plain warm water. Make sure the vulva is dry before dressing by patting dry with a towel. Avoid vigorous rubbing with the towel. You may want to use the blow dryer (on the cool setting only!) on the vulva. The most important way to let your body heal is by avoiding scratching. Many patients find it difficult to avoid scratching at night when they are most aware of the itchiness. You can try taking Benadryl just before bedtime. Some women find it helpful to wear cotton gloves to bed to avoid scratching at night. Replens lubricant for intercourse and a moisturizer for vaginal dryness. Or KY jelly for intercourse. Coconut oil. Lotrisone cream as needed. Florajen-3 probiotic Prescriptions ordered this encounter Disp Refills Start End CLOTRIMAZOLE-BETAMETHASONE 1 %-0.05 * 12/17/2017 12/17/2017 Class: Suppress Questions Route: TOPICAL METRONIDAZOLE 500 MG TABLET 14 t* 0 12/17/2017 12/24/2017 Route: ORAL Sig: Take 1 tablet by mouth twice daily for 7 days. Encounter Status:Closed by GAVI BORJA on 12/17/17 PROGRESS Observed: 12/17/2017 Status: COMPLETED Source: [place] 10:57 AM [facility] REPOSITORY HNO ID: [id number] Author: Gavi Borja Service: (none) Author Type: Nurse Practitioner Type: Progress Notes Filed: 12/17/2017 2:23 PM Note Text: Halley Sanchez is a 62 year old female who presents for vaginal pruritis for 3 days. Has noticed vaginal dryness for the past few years. Vaginal discharge: none. Itching: YES Dyspareunia: N/A Fever/chills: No Abdominal pain: Yes, long-term for years - no definitive diagnosis Bladder: frequency Bowel: No blood in stool, pain with BM, tarry stool, persistent diarrhea or constipation Any new sexual partners or concern for STD exposure: No Any history of STDs: None Does your partner have any new complaints: No Are you currently taking any medications to treat vaginitis: No Do you use feminine sprays, douches or deodorants: No} Contraception: hysterectomy Past medical, surgical, social history, medications and allergies reviewed and updated. OBJECTIVE: BP 126/82 Wt 345 lb (156.5kg) LMP 04/07/2011 GENERAL: Well developed, well nourished female in no apparent distress ABDOMEN: soft, no masses and Mild tenderness in Generalized PELVIC: external genitalia normal, normal Bartholin's glands, urethra, [place]'s glands, no vulvar lesions, no cervical lesions, good vaginal support, normal appearing perineal body and perianal region, abnormal discharge small amount white BIMANUAL: unable to evaluate due to body habitus. Component Results Component Value Range AND Units Status Performing Lab Glucose, Urine neg Neg mg/dL Final Unknown Bilirubin, Urine neg Neg Final Unknown Ketones, Urine neg Neg Final Unknown Specific [place], Ur 1.010 1.005 - 1.030 Final Unknown Hemoglobin/Blood,Ur neg Neg Final Unknown pH, Urine 5.0 4.5 - 8.0 Final Unknown Protein, Urine neg Neg mg/dL Final Unknown Urobilinogen, Urine normal Normal (<1.1) EU Final Unknown Nitrites neg Neg Final Unknown Leukocytes neg Neg Final Unknown Color/Appearance yellow, clear comment: Final Unknown Quality Check Yes yes/no Final Unknown ASSESSMENT/PLAN: 1. Dysuria - ICD9: 788.1, ICD10: R30.0 (primary diagnosis) acute - UA DIP B/O - negative 2. Vagina itching - ICD9: 698.1, ICD10: L29.8 - CLOTRIMAZOLE-BETAMETHASONE 1 %-0.05 % TOPICAL CREAM - BACT/DANETTE VAG GRAM STAIN - RAPID BV B/O - positive - Given verbal and written instruction on vulvar hygiene. - Replens lubricant for intercourse and a moisturizer for vaginal dryness. Or KY jelly for intercourse. - Coconut oil. - Lotrisone cream as needed. - Florajen-3 probiotic Will notify of lab results. Follow-up as needed. Gavi Borja APRN.SHEET METAL PATTERN CUTTER PROGRESS Observed: 11/05/2017 Status: COMPLETED Source: [place] 2:37 PM [facility] REPOSITORY HNO ID: [id number] Author: Jelly Fountain (Sandra) Allen Service: (none) Author Type: Nurse Practitioner Type: Progress Notes Filed: 11/05/2017 4:38 PM Note Text: Subjective HPI Patient presents with: Cough: nasal AND chest congestion, headache AND fever. Sx started 4 days ago. Tmax 102.3 yest Hx of asthma Mucinex otc with minimal relief. Review of Systems Constitutional: Positive for fever. Negative for chills and malaise/fatigue. HENT: Positive for congestion and sore throat. Negative for ear pain. Eyes: Negative for discharge and redness. Respiratory: Positive for cough. Negative for hemoptysis, sputum production, shortness of breath and wheezing. Gastrointestinal: Negative for abdominal pain, diarrhea, nausea and vomiting. Skin: Negative for rash. Neurological: Positive for headaches. PAST MEDICAL HISTORY Diagnosis Date - Acute gastritis without mention of hemorrhage - Breast cancer, stage 1 (HCC) 11/25/2009 - Carcinoma in situ of breast [id number] left breast - Chronic rhinitis 03/15/2005 - Complex endometrial hyperplasia without atypia - Congenital pes planus 01/07/2012 - DJD (degenerative joint disease) of knee 03/02/2011 [facility] 12/27/2011, moderate osteoarthritis in left knee, Synvisc injections every 6 months. - ER+ (estrogen receptor positive status) 11/25/2009 - Hiatal hernia 2001 - Left knee pain 12/28/2011 [facility] 12/27/2011, moderate osteoarthritis in left knee, Synvisc injections every 6 months. - Lumbar radicular syndrome 04/25/2009 Pain Management: Dr. Quesada. - Major Depressive Disorder, Recurrent, Severe 11/26/2003 - Malignant neoplasm of breast (female), unspecified site 03/15/2005 DCIS left breast Jul. 2001 - Migraine without aura, without mention of intractable migraine without mention of status migrainosus 07/25/2006 - Morbid obesity (HCC) 03-11-09 stated BMI 60.8 Ht: 63 Wt: 344 lbs - Obstructive sleep apnea (adult) (pediatric) 06/29/2009 Mild LIA. - Other and unspecified disorders of eating 11/26/2003 BINGE EATING DISORDER - Other diseases of trachea and bronchus, not elsewhere classified 03/15/2005 Reactive Airway - SEROMA, POST OP 10/14/2006 - Unspecified asthma(493.90) [id number] - Vitamin D deficiency 04/26/2009 PAST SURGICAL HISTORY Procedure Laterality Date - APPENDECTOMY 1997 incidental at time of GBP in [place] - BX OF BREAST; INCISIONAL Bx of breast, incisional, left - COLONOSCOP W/ OR W/O [facility] SPEC 03/26/2012 Colonoscopy - EGD W/O [facility] SPECIMEN W/BX 01/10/10 post gastric bypass, minimal inflammation - GASTRIC BYPASS,OBESE<100CM BLAKE-EN-Y 1997 [place], incidental appendectomy, choelcystectomy, liver biopsy - I AND D HEMATOMA, SEROMA 11/08/2006 Right chest seroma excised - LEFT HEART CATH,PERCUTANEOUS Cardiac cath, L heart - MASTECTOMY PARTIAL 2001 left breast, completed radiation - MASTECTOMY,SIMPLE 01/04/2006 left breast with SLND - MASTECTOMY,SIMPLE 01/04/2006 right breast - REMOVAL GALLBLADDER 1997 in conjunction with GBP in [place] - REPAIR OF ACHILLES TENDON September 16, 2009 Right heel - REPAIR OF ACHILLES TENDON September [place] dehiscence. - repair of hiatal hernia 2000 - VAGINAL HYSTERECTOMY ALLERGIES Cephalexin; Morphine MEDICATIONS pregabalin (LYRICA) 100 mg capsule Take 100 mg by mouth three times daily. ergocalciferol, vitamin D2, (VITAMIN D) 50,000 unit capsule Take 1 capsule by mouth twice a week. ipratropium bromide (ATROVENT) 42 mcg (0.06 %) nasal spray place 2 sprays into each nostril at bedtime DULoxetine (CYMBALTA) 60 mg capsule Take 1 capsule by mouth once daily. omeprazole (PRILOSEC) 20 mg capsule Take 1 capsule by mouth once daily. Heating Pads pads 1 Each once daily. use one XL heating once daily for aches and pains. pediatric multivitamins with iron (FLINTSTONES PLUS IRON) ORAL chewable tablet 1 tablet once daily. Take by mouth with meal. baclofen (LIORESAL) 10 mg tablet Take 10 mg by mouth twice daily. diclofenac sodium (VOLTAREN) 1 % topical gel Apply 1 g to affected area once daily. To knees mometasone (NASONEX) 50 mcg/actuation nasal spray Use 2 Sprays in the nose once daily. lidocaine (XYLOCAINE) 2 % jelly Apply 1 application to affected area as needed. triamcinolone acetonide (KENALOG) 0.1 % cream Apply 1 application to affected area twice daily as needed. Apply to affected area. albuterol HFA (PROAIR HFA) 90 mcg/actuation inhaler inhale 2 puffs by mouth every 4 hours if needed for wheezing or shortness of breath FAMILY HISTORY Problem Relation Age of Onset - Heart Mother 58 yrs old, CHF - Stroke Father 84 yrs old, CVA - Alzheimer's Disease Father - Breast Cancer Sister dx age 35 - Heart Sister CHF - Heart Brother 3 AZ's, Pacemaker - Stroke Brother - Tuberculosis [OTHER] Brother tested positive Social History Substance Use Topics - Smoking status: Never Smoker - Smokeless tobacco: Never Used - Alcohol use No Objective Physical Exam Constitutional: She is well-developed, well-nourished, and in no distress. HENT: Head: Normocephalic. Right Ear: Tympanic membrane, external ear and ear canal normal. Left Ear: Tympanic membrane, external ear and ear canal normal. Nose: Rhinorrhea present. Right sinus exhibits no maxillary sinus tenderness and no frontal sinus tenderness. Left sinus exhibits no maxillary sinus tenderness and no frontal sinus tenderness. Mouth/Throat: Posterior oropharyngeal erythema (PND) present. Eyes: Conjunctivae are normal. Neck: Normal range of motion. Neck supple. Cardiovascular: Normal rate, regular rhythm and normal heart sounds. Pulmonary/Chest: Effort normal and breath sounds normal. No respiratory distress. She has no wheezes. She has no rales. Abdominal: Soft. She exhibits no distension. There is no tenderness. Lymphadenopathy: She has no cervical adenopathy. Skin: Skin is warm and dry. No rash noted. Nursing note and vitals reviewed. ASSESSMENT/PLAN: 1. Viral URI with cough - ICD9: 465.9, ICD10: J06.9, B97.89 - Discussed viral etiology and rationale for treatment. - Symptomatic treatment with prn analgesia - Supportive care with fluids and rest - The patient may also use OTC decongestants prn, OTC cough and cold meds as needed, warm salt water gargles, throat lozenges and/or OTC throat spray as needed and nasal saline gtts and suction prn. - Follow up in 3-5 days if symptoms persist or sooner if worsening of symptoms Prescription instructions reviewed with patient as applicable. Patient advised if symptoms do not improve or if symptoms worsen sooner, to contact their primary care physician. Potential red flag symptoms discussed with the patient. Reviewed appropriate action plan to take if red flag symptoms occur. Patient agreeable to treatment plan. Jelly Eduardo APRN.JASON CNOV Observed: 11/05/2017 Status: COMPLETED Source: [place] 2:15 PM [facility] REPOSITORY Office Visit ([facility]) HALLEY SANCHEZ ([id number]) 1955 F Date Time Provider Department 11/05/17 2:15 PM JELLY EDUARDO (ELECTRICIAN SUPERVISOR SUBSTATION) [facility] During your visit today, we recorded the following information about you: Temperature Pulse Respiration Blood pressure 97.6 degrees 62/minute 18/minute 126/86 Weight 154.2 kg Jelly Eduardo APRN.SHEET METAL PATTERN CUTTER 11/05/2017 4:38 PM Signed Subjective HPI Patient presents with: Cough: nasal AND chest congestion, headache AND fever. Sx started 4 days ago. Tmax 102.3 yest Hx of asthma Mucinex otc with minimal relief. Review of Systems Constitutional: Positive for fever. Negative for chills and malaise/fatigue. HENT: Positive for congestion and sore throat. Negative for ear pain. Eyes: Negative for discharge and redness. Respiratory: Positive for cough. Negative for hemoptysis, sputum production, shortness of breath and wheezing. Gastrointestinal: Negative for abdominal pain, diarrhea, nausea and vomiting. Skin: Negative for rash. Neurological: Positive for headaches. PAST MEDICAL HISTORY Diagnosis Date - Acute gastritis without mention of hemorrhage - Breast cancer, stage 1 (HCC) 11/25/2009 - Carcinoma in situ of breast [id number] left breast - Chronic rhinitis 03/15/2005 - Complex endometrial hyperplasia without atypia - Congenital pes planus 01/07/2012 - DJD (degenerative joint disease) of knee 03/02/2011 [facility] 12/27/2011, moderate osteoarthritis in left knee, Synvisc injections every 6 months. - ER+ (estrogen receptor positive status) 11/25/2009 - Hiatal hernia 2001 - Left knee pain 12/28/2011 [facility] 12/27/2011, moderate osteoarthritis in left knee, Synvisc injections every 6 months. - Lumbar radicular syndrome 04/25/2009 Pain Management: Dr. Quesada. - Major Depressive Disorder, Recurrent, Severe 11/26/2003 - Malignant neoplasm of breast (female), unspecified site 03/15/2005 DCIS left breast 2001 - Migraine without aura, without mention of intractable migraine without mention of status migrainosus 07/25/2006 - Morbid obesity (HCC) 03-11-09 stated BMI 60.8 Ht: 63 Wt: 344 lbs - Obstructive sleep apnea (adult) (pediatric) 06/29/2009 Mild LIA. - Other and unspecified disorders of eating 11/26/2003 BINGE EATING DISORDER - Other diseases of trachea and bronchus, not elsewhere classified 03/15/2005 Reactive Airway - SEROMA, POST OP 10/14/2006 - Unspecified asthma(493.90) [id number] - Vitamin D deficiency 04/26/2009 PAST SURGICAL HISTORY Procedure Laterality Date - APPENDECTOMY 1997 incidental at time of GBP in [place] - BX OF BREAST; INCISIONAL Bx of breast, incisional, left - COLONOSCOP W/ OR W/O [facility] SPEC 03/26/2012 Colonoscopy - EGD W/O [facility] SPECIMEN W/BX 01/10/10 post gastric bypass, minimal inflammation - GASTRIC BYPASS,OBESE<100CM BLAKE-EN-Y 1997 [place], incidental appendectomy, choelcystectomy, liver biopsy - I AND D HEMATOMA, SEROMA 11/08/2006 Right chest seroma excised - LEFT HEART CATH,PERCUTANEOUS Cardiac cath, L heart - MASTECTOMY PARTIAL 2001 left breast, completed radiation - MASTECTOMY,SIMPLE 01/04/2006 left breast with SLND - MASTECTOMY,SIMPLE 01/04/2006 right breast - REMOVAL GALLBLADDER 1997 in conjunction with GBP in [place] - REPAIR OF ACHILLES TENDON September 16, 2009 Right heel - REPAIR OF ACHILLES TENDON September [place] dehiscence. - repair of hiatal hernia 2000 - VAGINAL HYSTERECTOMY ALLERGIES Cephalexin; Morphine MEDICATIONS pregabalin (LYRICA) 100 mg capsule Take 100 mg by mouth three times daily. ergocalciferol, vitamin D2, (VITAMIN D) 50,000 unit capsule Take 1 capsule by mouth twice a week. ipratropium bromide (ATROVENT) 42 mcg (0.06 %) nasal spray place 2 sprays into each nostril at bedtime DULoxetine (CYMBALTA) 60 mg capsule Take 1 capsule by mouth once daily. omeprazole (PRILOSEC) 20 mg capsule Take 1 capsule by mouth once daily. Heating Pads pads 1 Each once daily. use one XL heating once daily for aches and pains. pediatric multivitamins with iron (FLINTSTONES PLUS IRON) ORAL chewable tablet 1 tablet once daily. Take by mouth with meal. baclofen (LIORESAL) 10 mg tablet Take 10 mg by mouth twice daily. diclofenac sodium (VOLTAREN) 1 % topical gel Apply 1 g to affected area once daily. To knees mometasone (NASONEX) 50 mcg/actuation nasal spray Use 2 Sprays in the nose once daily. lidocaine (XYLOCAINE) 2 % jelly Apply 1 application to affected area as needed. triamcinolone acetonide (KENALOG) 0.1 % cream Apply 1 application to affected area twice daily as needed. Apply to affected area. albuterol HFA (PROAIR HFA) 90 mcg/actuation inhaler inhale 2 puffs by mouth every 4 hours if needed for wheezing or shortness of breath FAMILY HISTORY Problem Relation Age of Onset - Heart Mother 58 yrs old, CHF - Stroke Father 84 yrs old, CVA - Alzheimer's Disease Father - Breast Cancer Sister dx age 35 - Heart Sister CHF - Heart Brother 3 AZ's, Pacemaker - Stroke Brother - Tuberculosis [OTHER] Brother tested positive Social History Substance Use Topics - Smoking status: Never Smoker - Smokeless tobacco: Never Used - Alcohol use No Objective Physical Exam Constitutional: She is well-developed, well-nourished, and in no distress. HENT: Head: Normocephalic. Right Ear: Tympanic membrane, external ear and ear canal normal. Left Ear: Tympanic membrane, external ear and ear canal normal. Nose: Rhinorrhea present. Right sinus exhibits no maxillary sinus tenderness and no frontal sinus tenderness. Left sinus exhibits no maxillary sinus tenderness and no frontal sinus tenderness. Mouth/Throat: Posterior oropharyngeal erythema (PND) present. Eyes: Conjunctivae are normal. Neck: Normal range of motion. Neck supple. Cardiovascular: Normal rate, regular rhythm and normal heart sounds. Pulmonary/Chest: Effort normal and breath sounds normal. No respiratory distress. She has no wheezes. She has no rales. Abdominal: Soft. She exhibits no distension. There is no tenderness. Lymphadenopathy: She has no cervical adenopathy. Skin: Skin is warm and dry. No rash noted. Nursing note and vitals reviewed. ASSESSMENT/PLAN: 1. Viral URI with cough - ICD9: 465.9, ICD10: J06.9, B97.89 - Discussed viral etiology and rationale for treatment. - Symptomatic treatment with prn analgesia - Supportive care with fluids and rest - The patient may also use OTC decongestants prn, OTC cough and cold meds as needed, warm salt water gargles, throat lozenges and/or OTC throat spray as needed and nasal saline gtts and suction prn. - Follow up in 3-5 days if symptoms persist or sooner if worsening of symptoms Prescription instructions reviewed with patient as applicable. Patient advised if symptoms do not improve or if symptoms worsen sooner, to contact their primary care physician. Potential red flag symptoms discussed with the patient. Reviewed appropriate action plan to take if red flag symptoms occur. Patient agreeable to treatment plan. Jelly Eduardo APRN.JASON Edaurdo APRN.JASON 11/05/2017 2:41 PM Signed RESPIRATORY INFECTION GENERAL INFORMATION: An upper respiratory tract infection, or cold, is a viral infection of the airway passages. It can be caused by any one of almost 200 different viruses. Common symptoms include a runny or stuffy nose, sneezing, watery eyes, sore throat, cough, and slight fever. Colds are contagious, especially during the first 3 or 4 days and cannot be cured by antibiotics. They are spread by coughs, sneezes, and direct contact, especially [id number]-[id number]. A respiratory tract infection usually clears up in a few days, but some people may be sick for a week or two. There is no cure for the common cold since colds are caused by viruses. Antibiotics don?t kill viruses so they will not make your child?s cold better. But you can help your child feel better until the cold goes away. There may also be a mild fever (under 102?F or 38.9?C) or headache. All this can make yourchild fussy too.Colds usually last about a week but can even last for 10 days. If there is fever, it should come at the start of the cold and then go away.Mucus (MYOO-kus) in your child?s nose may turn yellow or green after 3 or 4 days. Children can get one cold right after another. So it may seem like your child is sick for a long time. INSTRUCTIONS: To Help a Stuffy Nose Put a cool-mist humidifier in your child?s room. A humidifier (wesn-PCU-ke-fye-ur) puts water into the air to help clear your child?s stuffy nose. Be sure to clean the humidifier often. Thin the mucus. Use saline (saltwater) nose drops. Never use any other kind of nose drops unless your child?s doctor prescribes them. Clear your baby?s nose with a suction bulb. (This is also called an ear bulb.) Squeeze the bulb first and hold it in. Gently put the rubber tip into one nostril, and slowly release the bulb. This will suck the clogged mucus out of the nose. It works best for babies younger than 6 months. CONTACT YOUR DOCTOR IF : - Fever lasting more than 2 or 3 days - Cold symptoms that get worse, instead of better, after a week. - Trouble breathing or drinking - Ear pain - Acting very sleepy or fussy - Coughing more than 10 days RETURN IMMEDIATELY IF: 1. If cough up thick yellow, green, martines, or bloody sputum. 2. If having difficulty breathing, pain in the chest, or if skin or nails look martines or blue. 3. If shaking chills or a temperature over 102 F (39 C). SUCTIONING THE NOSE WITH A BULB SYRINGE A stuffy nose can make it hard for your baby to breathe. This can make your baby fussy, especially when he/she tries to eat or sleep. Suctioning makes it easier for your baby to breathe and eat. If needed, it is best to suction your baby's nose before a feeding or bedtime. Avoid suctioning after feeding. This may cause your baby to vomit. Before using the bulb syringe, you should thin the mucus with normal saline (salt water) nose drops as instructed below. Making Saline Nose Drops 1. Add 1/4 level teaspoon of salt to the 8 ounces (1 cup) of water. 2. Heat to boil to dissolve the salt 3. Allow to cool before using. 4. Keep the solution in a clean, covered jar. 5. Discard the solution after 1 week. Note: You may also use purchased saline nose drops. Procedure 1. Wash your hands well before and after suctioning. 2. Lay your baby on his back with head positioned facing ceiling. Have someone hold your baby in this position or swaddle your baby in a blanket with arms at their side to keep them still. 3. Using a nose dropper, drop 3-4 drops saline solution into one nostril, unless otherwise directed by your baby's doctor. Hold baby in this position for 1 minute. 4. Before placing the bulb into the nostril, push all the air out of it with your thumb on the top of the bulb. 5. Carefully and gently, place the tip of the bulb into a nostril until nostril is sealed. 6. Slowly release thumb letting the air come back into the bulb. The suction will pull the mucus out of the nose and into the bulb 7. Remove the bulb from baby's nose and squeeze mucus out of bulb into a tissue. 8. Repeat steps 3 through 8 on other nostril. You may need to suction each nostril several times to clear all the mucus. 9. Clean bulb syringe after each use with warm soapy water and rinse thoroughly. When suctioning the mouth, be sure to put the suction bulb towards the inside cheek of your child's mouth. If the bulb is placed in the middle of the mouth, your baby may gag and vomit. Make Sure Your Child Drinks Lots of Liquids Make sure your child drinks plenty of liquids to avoid getting dehydration. Clear liquids may work better than milk or formula if your child?s nose is very stuffy. A Warning About Cold and Cough Medicines The [place] [employer] strongly recommends that naoz-gni-scekyxc cough and cold medications not be given to infants and children younger than 2 years because of the risk of life-threatening side effects. Also, several studies show that cold and cough products don?t work in children younger than 6 years and can have potentially serious side effects. Referring Provider: SELF [200] Allergies As of Date: 11/05/2017 Noted Allergy Reaction CEPHALEXIN 02/17/2005 7 - Swelling MORPHINE 12/26/2006 9 - Itching Date Reviewed: 11/05/2017 Reviewed by: Kandi Khan LPN - Fully Assessed Reason for Visit: Cough [28] Cmt: nasal AND chest congestion, headache AND fever. Sx started 4 days ago. Tmax 102.3 yest Primary Visit Diagnosis:Viral URI with cough [J06.9, B97.89] Order(s):predniSONE (DELTASONE) 20 mg tabletTake 2 tablets by mouth once daily for 5 days. Take daily with food.Disp: 10 tabletRfl: 0 Sqbgyfehkvllxqz-Llupcuulk-VR (BROMFED DM) 2-30-10 mg/5 mL syrupTake 10 mL by mouth four times daily as needed for up to 7 days.Disp: 240 mLRfl: 0 Prescriptions as of 11/05/2017 Sig: PREGABALIN 100 MG CAPSULE Take 100 mg by mouth three ti* ERGOCALCIFEROL (VITAMIN D2) 5* Take 1 capsule by mouth twice* IPRATROPIUM BROMIDE 42 MCG (0* place 2 sprays into each nost* DULOXETINE 60 MG CAPSULE,DANNY* Take 1 capsule by mouth once * OMEPRAZOLE 20 MG CAPSULE,DANNY* Take 1 capsule by mouth once * HEATING PADS 1 Each once daily. use one XL* * PEDIATRIC MULTIVITAMIN-IRON C* 1 tablet once daily. Take by * PREDNISONE 20 MG TABLET Take 2 tablets by mouth once * BROMPHENIRAMINE-PSEUDOEPHEDRI* Take 10 mL by mouth four time* BACLOFEN 10 MG TABLET Take 10 mg by mouth twice jayden* DICLOFENAC 1 % TOPICAL GEL Apply 1 g to affected area on* MOMETASONE 50 MCG/ACTUATION N* Use 2 Sprays in the nose once* Patient not taking: Reported on 11/05/2017 LIDOCAINE 2 % MUCOSAL JELLY Apply 1 application to affect* Patient not taking: Reported on 11/05/2017 TRIAMCINOLONE ACETONIDE 0.1 %* Apply 1 application to affect* Patient not taking: Reported on 11/05/2017 ALBUTEROL SULFATE HFA 90 MCG/* inhale 2 puffs by mouth every* Patient not taking: Reported on 11/05/2017 Problem List As Of Date 11/05/2017 Noted Resolved MORBID OBESITY [E66.01] INVALID FOR* Eating disorder, unspecified [F50.9] INVALID FOR* Severe episode of recurrent major depressive di*INVALID FOR* CHRONIC RHINITIS [J31.0] INVALID FOR* More... Malignant neoplasm of breast (female), unspecif*INVALID FOR*11/05/2013 More... Anemia, unspecified [D64.9] INVALID FOR*06/23/2014 Abdominal pain, other specified site [R10.9] INVALID FOR*01/01/2011 Migraine without aura, without mention of intra*INVALID FOR*11/05/2013 Other bursitis disorders [M71.50] INVALID FOR*08/09/2011 Vitamin D deficiency [E55.9] INVALID FOR* Bronchitis, not specified as acute or chronic [*INVALID FOR*07/03/2013 Lumbar radicular syndrome [M54.16] INVALID FOR* Symptomatic states associated with artificial m*INVALID FOR*11/05/2013 Insomnia [G47.00] INVALID FOR* Vitamin D deficiency [E55.9] INVALID FOR*06/06/2010 Obstructive Sleep Apnea (Adult) (Pediatric) [G4*INVALID FOR* More... Abnormal weight gain [R63.5] INVALID FOR*06/25/2011 Pernicious Anemia [D51.0] INVALID FOR* ER+ (Estrogen Receptor Positive Status) [Z17.0] INVALID FOR* Breast Cancer, Stage 1 [C50.919] INVALID FOR* More... Dysphagia [R13.10] INVALID FOR*11/05/2013 Abdominal pain, epigastric [R10.13] INVALID FOR*01/01/2011 Heel pain [M79.673] INVALID FOR*06/23/2014 Vitamin B 12 deficiency [E53.8] INVALID FOR* DJD (degenerative joint disease) of knee [M17.1*INVALID FOR* More... Complex endometrial hyperplasia without atypia *INVALID FOR*11/05/2016 Gastric bypass status for obesity [Z98.84] INVALID FOR* Left knee pain [M25.562] INVALID FOR*11/05/2013 Tendonitis [M77.9] INVALID FOR*11/05/2013 Congenital pes planus [Q66.50] INVALID FOR*11/05/2016 RLQ abdominal pain [R10.31] INVALID FOR*08/11/2015 Abdominal muscle strain [S39.011A] INVALID FOR*08/11/2015 Chronic RLQ pain [R10.31, G89.29] INVALID FOR* Lichen planus [L43.9] INVALID FOR* More... Urge incontinence of urine [N39.41] INVALID FOR* Chronic pain disorder [G89.4] INVALID FOR* More... Other instructions from your clinician: RESPIRATORY INFECTION GENERAL INFORMATION: An upper respiratory tract infection, or cold, is a viral infection of the airway passages. It can be caused by any one of almost 200 different viruses. Common symptoms include a runny or stuffy nose, sneezing, watery eyes, sore throat, cough, and slight fever. Colds are contagious, especially during the first 3 or 4 days and cannot be cured by antibiotics. They are spread by coughs, sneezes, and direct contact, especially vyzn-lw-mgwg. A respiratory tract infection usually clears up in a few days, but some people may be sick for a week or two. There is no cure for the common cold since colds are caused by viruses. Antibiotics don?t kill viruses so they will not make your child?s cold better. But you can help your child feel better until the cold goes away. There may also be a mild fever (under 102?F or 38.9?C) or headache. All this can make yourchild fussy too.Colds usually last about a week but can even last for 10 days. If there is fever, it should come at the start of the cold and then go away.Mucus (MYOO-kus) in your child?s nose may turn yellow or green after 3 or 4 days. Children can get one cold right after another. So it may seem like your child is sick for a long time. INSTRUCTIONS: To Help a Stuffy Nose Put a cool-mist humidifier in your child?s room. A humidifier (kbme-WJI-yf-fye-ur) puts water into the air to help clear your child?s stuffy nose. Be sure to clean the humidifier often. Thin the mucus. Use saline (saltwater) nose drops. Never use any other kind of nose drops unless your child?s doctor prescribes them. Clear your baby?s nose with a suction bulb. (This is also called an ear bulb.) Squeeze the bulb first and hold it in. Gently put the rubber tip into one nostril, and slowly release the bulb. This will suck the clogged mucus out of the nose. It works best for babies younger than 6 months. CONTACT YOUR DOCTOR IF : - Fever lasting more than 2 or 3 days - Cold symptoms that get worse, instead of better, after a week. - Trouble breathing or drinking - Ear pain - Acting very sleepy or fussy - Coughing more than 10 days RETURN IMMEDIATELY IF: 1. If cough up thick yellow, green, martines, or bloody sputum. 2. If having difficulty breathing, pain in the chest, or if skin or nails look martines or blue. 3. If shaking chills or a temperature over 102 F (39 C). SUCTIONING THE NOSE WITH A BULB SYRINGE A stuffy nose can make it hard for your baby to breathe. This can make your baby fussy, especially when he/she tries to eat or sleep. Suctioning makes it easier for your baby to breathe and eat. If needed, it is best to suction your baby's nose before a feeding or bedtime. Avoid suctioning after feeding. This may cause your baby to vomit. Before using the bulb syringe, you should thin the mucus with normal saline (salt water) nose drops as instructed below. Making Saline Nose Drops 1. Add 1/4 level teaspoon of salt to the 8 ounces (1 cup) of water. 2. Heat to boil to dissolve the salt 3. Allow to cool before using. 4. Keep the solution in a clean, covered jar. 5. Discard the solution after 1 week. Note: You may also use purchased saline nose drops. Procedure 1. Wash your hands well before and after suctioning. 2. Lay your baby on his back with head positioned facing ceiling. Have someone hold your baby in this position or swaddle your baby in a blanket with arms at their side to keep them still. 3. Using a nose dropper, drop 3-4 drops saline solution into one nostril, unless otherwise directed by your baby's doctor. Hold baby in this position for 1 minute. 4. Before placing the bulb into the nostril, push all the air out of it with your thumb on the top of the bulb. 5. Carefully and gently, place the tip of the bulb into a nostril until nostril is sealed. 6. Slowly release thumb letting the air come back into the bulb. The suction will pull the mucus out of the nose and into the bulb 7. Remove the bulb from baby's nose and squeeze mucus out of bulb into a tissue. 8. Repeat steps 3 through 8 on other nostril. You may need to suction each nostril several times to clear all the mucus. 9. Clean bulb syringe after each use with warm soapy water and rinse thoroughly. When suctioning the mouth, be sure to put the suction bulb towards the inside cheek of your child's mouth. If the bulb is placed in the middle of the mouth, your baby may gag and vomit. Make Sure Your Child Drinks Lots of Liquids Make sure your child drinks plenty of liquids to avoid getting dehydration. Clear liquids may work better than milk or formula if your child?s nose is very stuffy. A Warning About Cold and Cough Medicines The [place] [employer] strongly recommends that lygk-lim-kuapikb cough and cold medications not be given to infants and children younger than 2 years because of the risk of life- threatening side effects. Also, several studies show that cold and cough products don?t work in children younger than 6 years and can have potentially serious side effects. Prescriptions ordered this encounter Disp Refills Start End PREDNISONE 20 MG TABLET 10 t* 0 11/05/2017 11/10/2017 Route: ORAL Sig: Take 2 tablets by mouth once daily for 5 days. Take daily with food. [id number] 2* 240 * 0 11/05/2017 11/12/2017 Route: ORAL Sig: Take 10 mL by mouth four times daily as needed for up to 7 days. Disposition: Return if symptoms worsen or fail to improve. Follow-up and Disposition History Recorded Encounter Status:Closed by JELLY EDUARDO on 11/05/17 CNCO Observed: 09/20/2017 Status: COMPLETED Source: [place] 12:00 AM [facility] REPOSITORY Letter Text [facility]ly [facility] Department of Internal Medicine [address]. [place], [place] [address] Halley Sanchez [id number] [facility] [id number] September 20, 2017 Dear , Due to unforeseen circumstances, there has been a change in the schedule for Emigdio Crowell MD Your original appointment scheduled for 01/08/2018 at 8:00 AM has been rescheduled to 01/08/2018 at 4:00 PM. If this is not convenient, please give our office a call at [phone]. I apologize for any inconvenience this may cause you. Sincerely, Department of Internal Medicine [facility] XR SPINE LUMBAR Observed: 08/14/2017 Status: F Source: [facility] AP/LAT 3:01 PM [facility] REPOSITORY ORIGINAL XR SPINE LUMBAR AP/LAT CLINICAL STATEMENT: back pain COMPARISON: None FINDINGS:AP and lateral views of the lumbosacral spine demonstrate 5 lumbar type vertebral bodies. Moderate degenerative changes with disc space narrowing and endplate sclerosis is noted at all visualiz ed levels. There is moderate facet degenerative change present. IMPRESSION:Diffuse degenerative change Interpreted By: Kerry High MD Preliminary Report By: Kerry High MD Electronically Signed By: Kerry High MD Dictated Date: 08/14/2017 4:47:29 PM Prelim Date: 08/14/2017 4:47:29 PM Sign Date: 08/14/2017 4:47:52 PM MAGNESIUM Collected: 07/10/2017 Status: F Source: [place] 9:05 AM [facility] REPOSITORY TYPE CODE TESTS RESULT OUT OF REFERENCE UNITS RANGE LAB MG 1.7-2.3 mg/dL Magnesium 2.0 Performed By: #### MG1, VITD #### [facility] [address], [place] [address] VITAMIN D 25 HYDROXY Collected: 07/10/2017 Status: F Source: [place] 9:05 AM [facility] REPOSITORY TYPE CODE TESTS RESULT OUT OF REFERENCE UNITS RANGE LAB VITD 31.0-80.0 ng/mL Vitamin D 25 43.7 Hydroxy Result Comment: Classification of 25 [place] Vitamin D status: Insufficiency/Moderate Deficiency: < or = 30 ng/mL Sufficiency/Optimal Levels: 31 to 80 ng/mL Toxicity: > 100 ng/mL Test performed by chemiluminescent immunoassay. Performed By: #### MG1, VITD #### [facility] [address] [place], [place] [address] PROGRESS Observed: 07/10/2017 Status: COMPLETED Source: [place] 8:48 AM [facility] REPOSITORY HNO ID: [id number] Author: Emigdio Elaine Service: (none) Author Type: Physician Type: Progress Notes Filed: 07/10/2017 8:56 AM Note Text: This note was created using cooala - your brands. Subjective Halley Sanchez is a 61 year old female here for follow up. Her depression was controlled. Chronic pain was stable and managed by Dr. Resendiz. She felt it was the Detrol that caused itching so she stopped Detrol. Her medication list was updated. She complained of frontal throbbing headache for one week, with some nosebleed, sinus congestion, no earache, no sore throat, or fever. She was out of mometasone spray. Tylenol was not helping much. I referred her to [facility] program in [place]. She met with a physician who informed her her records will be reviewed. She had no further follow up and was told requests for records were not addressed. ACTIVE PROBLEM LIST Morbid Obesity (Hcc) Eating disorder, unspecified Severe Episode of Recurrent Major Depressive Disorder (Hcc) Chronic Rhinitis Vitamin D Deficiency Lumbar Radicular Syndrome Insomnia Obstructive Sleep Apnea (Adult) (Pediatric) Pernicious Anemia Er+ (Estrogen Receptor Positive Status) Breast Cancer, Stage 1 Vitamin B 12 Deficiency Djd (Degenerative Joint Disease) of Knee Gastric Bypass Status for Obesity Chronic Rlq Pain Lichen Planus Urge Incontinence of Urine Chronic Pain Disorder Current Outpatient Prescriptions: pregabalin (LYRICA) 100 mg capsule Take 100 mg by mouth three times daily. baclofen (LIORESAL) 10 mg tablet Take 10 mg by mouth twice daily. mometasone (NASONEX) 50 mcg/actuation nasal spray Use 2 Sprays in the nose once daily. ergocalciferol, vitamin D2, (VITAMIN D) 50,000 unit capsule Take 1 capsule by mouth twice a week. ipratropium bromide (ATROVENT) 42 mcg (0.06 %) nasal spray place 2 sprays into each nostril at bedtime lidocaine (XYLOCAINE) 2 % jelly Apply 1 application to affected area as needed. DULoxetine (CYMBALTA) 60 mg capsule Take 1 capsule by mouth once daily. triamcinolone acetonide (KENALOG) 0.1 % cream Apply 1 application to affected area twice daily as needed. Apply to affected area. omeprazole (PRILOSEC) 20 mg capsule Take 1 capsule by mouth once daily. albuterol HFA (PROAIR HFA) 90 mcg/actuation inhaler inhale 2 puffs by mouth every 4 hours if needed for wheezing or shortness of breath Heating Pads pads 1 Each once daily. use one XL heating once daily for aches and pains. pediatric multivitamins with iron (FLINTSTONES PLUS IRON) ORAL chewable tablet 1 tablet once daily. Take by mouth with meal. diclofenac sodium (VOLTAREN) 1 % topical gel Apply 1 g to affected area once daily. To knees No current facility-administered medications for this visit. Review of Systems Constitutional: Negative. HENT: Positive for congestion, nosebleeds and sinus pain. Negative for ear pain and sore throat. Eyes: Negative. Respiratory: Negative. Cardiovascular: Negative. Gastrointestinal: Negative. Skin: Negative. Psychiatric/Behavioral: See HPI. Objective BP 122/70 (BP Site: Right Arm, BP Position: Sitting, BP Cuff Size: Regular Adult) Pulse 60 Temp 36.2 ?C (97.2 ?F) (Left Tympanic) Resp 16 Wt (!) 150.6 kg (332 lb) LMP 04/07/2011 BMI 59.76 kg/m2 Physical Exam Constitutional: No distress. HENT: Nose: Mucosal edema and sinus tenderness present. No epistaxis. Right sinus exhibits frontal sinus tenderness. Right sinus exhibits no maxillary sinus tenderness. Left sinus exhibits frontal sinus tenderness. Left sinus exhibits no maxillary sinus tenderness. Mouth/Throat: Oropharynx is clear and moist. Neck: Neck supple. Cardiovascular: Normal heart sounds. Pulmonary/Chest: Breath sounds normal. Musculoskeletal: She exhibits no edema. Lymphadenopathy: She has no cervical adenopathy. Neurological: She is alert. She has normal strength. Gait normal. ASSESSMENT/PLAN: 1. Sinus headache - ICD9: 784.0, ICD10: R51 (primary diagnosis) Discussed medication dosage, usage, goals of therapy, and side effects. Take ibuprofen for a few days as tolerated starting this evening. - TORADOL 30 MG IM X 1 DOSE 2. Chronic rhinitis, unspecified type - ICD9: 472.0, ICD10: J31.0 Refilled. - MOMETASONE 50 MCG/ACTUATION NASAL SPRAY 3. Severe episode of recurrent major depressive disorder, without psychotic features (HCC) - ICD9: 296.33, ICD10: F33.2 Controlled. 4. Vitamin D deficiency - ICD9: 268.9, ICD10: E55.9 Recheck. - ERGOCALCIFEROL (VITAMIN D2) 50,000 UNIT CAPSULE - VITAMIN D 25 HYDROXY 5. Morbid obesity (HCC) - ICD9: 278.01, ICD10: E66.01 Follow up on referral issues. Emigdio Elaine MD CNOV Observed: 07/10/2017 Status: COMPLETED Source: [place] 8:00 AM [facility] REPOSITORY Office Visit (INTMWS) HALLEY SANCHEZ ([id number]) 1955 F Date Time Provider Department 07/10/17 8:00 AM EMIGDIO ELAINE INTJoseWS During your visit today, we recorded the following information about you: Temperature Pulse Respiration Blood pressure 97.2 degrees 60/minute 16/minute 122/70 Weight 150.6 kg mEigdio Elaine MD 07/10/2017 8:56 AM Signed This note was created using I[employer]ia Care[employer]. Subjective Halley Sanchez is a 61 year old female here for follow up. Her depression was controlled. Chronic pain was stable and managed by Dr. Resendiz. She felt it was the Detrol that caused itching so she stopped Detrol. Her medication list was updated. She complained of frontal throbbing headache for one week, with some nosebleed, sinus congestion, no earache, no sore throat, or fever. She was out of mometasone spray. Tylenol was not helping much. I referred her to [facility] program in [place]. She met with a physician who informed her her records will be reviewed. She had no further follow up and was told requests for records were not addressed. ACTIVE PROBLEM LIST Morbid Obesity (Hcc) Eating disorder, unspecified Severe Episode of Recurrent Major Depressive Disorder (Hcc) Chronic Rhinitis Vitamin D Deficiency Lumbar Radicular Syndrome Insomnia Obstructive Sleep Apnea (Adult) (Pediatric) Pernicious Anemia Er+ (Estrogen Receptor Positive Status) Breast Cancer, Stage 1 Vitamin B 12 Deficiency Djd (Degenerative Joint Disease) of Knee Gastric Bypass Status for Obesity Chronic Rlq Pain Lichen Planus Urge Incontinence of Urine Chronic Pain Disorder Current Outpatient Prescriptions: pregabalin (LYRICA) 100 mg capsule Take 100 mg by mouth three times daily. baclofen (LIORESAL) 10 mg tablet Take 10 mg by mouth twice daily. mometasone (NASONEX) 50 mcg/actuation nasal spray Use 2 Sprays in the nose once daily. ergocalciferol, vitamin D2, (VITAMIN D) 50,000 unit capsule Take 1 capsule by mouth twice a week. ipratropium bromide (ATROVENT) 42 mcg (0.06 %) nasal spray place 2 sprays into each nostril at bedtime lidocaine (XYLOCAINE) 2 % jelly Apply 1 application to affected area as needed. DULoxetine (CYMBALTA) 60 mg capsule Take 1 capsule by mouth once daily. triamcinolone acetonide (KENALOG) 0.1 % cream Apply 1 application to affected area twice daily as needed. Apply to affected area. omeprazole (PRILOSEC) 20 mg capsule Take 1 capsule by mouth once daily. albuterol HFA (PROAIR HFA) 90 mcg/actuation inhaler inhale 2 puffs by mouth every 4 hours if needed for wheezing or shortness of breath Heating Pads pads 1 Each once daily. use one XL heating once daily for aches and pains. pediatric multivitamins with iron (FLINTSTONES PLUS IRON) ORAL chewable tablet 1 tablet once daily. Take by mouth with meal. diclofenac sodium (VOLTAREN) 1 % topical gel Apply 1 g to affected area once daily. To knees No current facility-administered medications for this visit. Review of Systems Constitutional: Negative. HENT: Positive for congestion, nosebleeds and sinus pain. Negative for ear pain and sore throat. Eyes: Negative. Respiratory: Negative. Cardiovascular: Negative. Gastrointestinal: Negative. Skin: Negative. Psychiatric/Behavioral: See HPI. Objective BP 122/70 (BP Site: Right Arm, BP Position: Sitting, BP Cuff Size: Regular Adult) Pulse 60 Temp 36.2 ?C (97.2 ?F) (Left Tympanic) Resp 16 Wt (!) 150.6 kg (332 lb) LMP 04/07/2011 BMI 59.76 kg/m2 Physical Exam Constitutional: No distress. HENT: Nose: Mucosal edema and sinus tenderness present. No epistaxis. Right sinus exhibits frontal sinus tenderness. Right sinus exhibits no maxillary sinus tenderness. Left sinus exhibits frontal sinus tenderness. Left sinus exhibits no maxillary sinus tenderness. Mouth/Throat: Oropharynx is clear and moist. Neck: Neck supple. Cardiovascular: Normal heart sounds. Pulmonary/Chest: Breath sounds normal. Musculoskeletal: She exhibits no edema. Lymphadenopathy: She has no cervical adenopathy. Neurological: She is alert. She has normal strength. Gait normal. ASSESSMENT/PLAN: 1. Sinus headache - ICD9: 784.0, ICD10: R51 (primary diagnosis) Discussed medication dosage, usage, goals of therapy, and side effects. Take ibuprofen for a few days as tolerated starting this evening. - TORADOL 30 MG IM X 1 DOSE 2. Chronic rhinitis, unspecified type - ICD9: 472.0, ICD10: J31.0 Refilled. - MOMETASONE 50 MCG/ACTUATION NASAL SPRAY 3. Severe episode of recurrent major depressive disorder, without psychotic features (HCC) - ICD9: 296.33, ICD10: F33.2 Controlled. 4. Vitamin D deficiency - ICD9: 268.9, ICD10: E55.9 Recheck. - ERGOCALCIFEROL (VITAMIN D2) 50,000 UNIT CAPSULE - VITAMIN D 25 HYDROXY 5. Morbid obesity (HCC) - ICD9: 278.01, ICD10: E66.01 Follow up on referral issues. Emigdio Elaine MD Referring Provider: SELF [200] Allergies As of Date: 07/10/2017 Noted Allergy Reaction CEPHALEXIN 02/17/2005 7 - Swelling MORPHINE 12/26/2006 9 - Itching Date Reviewed: 07/10/2017 Reviewed by: Delores Colvin LPN - Fully Assessed Reason for Visit: F/U 6 Month [444] Primary Visit Diagnosis:Sinus headache [R51] Other Visit Diagnoses:Chronic rhinitis, unspecified type [J31.0] Severe episode of recurrent major depressive disorder, without psychotic features ([facility]) [F33.2] Vitamin D deficiency [E55.9] Morbid obesity ([facility]) [E66.01] Order(s):mometasone (NASONEX) 50 mcg/actuation nasal sprayUse 2 Sprays in the nose once daily.Disp: 1 BottleRfl: 11 TORADOL 30 MG IM X 1 DOSE [[id number]] Order #: [id number] ergocalciferol, vitamin D2, (VITAMIN D) 50,000 unit capsuleTake 1 capsule by mouth twice a week.Disp: 8 capsuleRfl: 5 VITAMIN D 25 HYDROXY [SQVITD] Order #: [id number] FUTURE Prescriptions as of 07/10/2017 Sig: PREGABALIN 100 MG CAPSULE Take 100 mg by mouth three ti* BACLOFEN 10 MG TABLET Take 10 mg by mouth twice jayden* MOMETASONE 50 MCG/ACTUATION N* Use 2 Sprays in the nose once* ERGOCALCIFEROL (VITAMIN D2) 5* Take 1 capsule by mouth twice* IPRATROPIUM BROMIDE 42 MCG (0* place 2 sprays into each nost* LIDOCAINE 2 % MUCOSAL JELLY Apply 1 application to affect* DULOXETINE 60 MG CAPSULE,DANNY* Take 1 capsule by mouth once * TRIAMCINOLONE ACETONIDE 0.1 %* Apply 1 application to affect* OMEPRAZOLE 20 MG CAPSULE,DANNY* Take 1 capsule by mouth once * ALBUTEROL SULFATE HFA 90 MCG/* inhale 2 puffs by mouth every* HEATING PADS 1 Each once daily. use one XL* * PEDIATRIC MULTIVITAMIN-IRON C* 1 tablet once daily. Take by * DICLOFENAC 1 % TOPICAL GEL Apply 1 g to affected area on* Medication notes this encounter TOLTERODINE ER 4 MG CAPSULE,EXTENDED RELEASE 24 HR >> Emigdio Elaine MD 07/10/2017 8:45 AM pruritus GABAPENTIN 800 MG TABLET >> Delores Colvin LPN 07/10/2017 8:15 AM >> DELORES COLVIN LPN SatJul 10, 2017 8:15 AM Not taking. OXYCODONE-ACETAMINOPHEN 5 MG-325 MG TABLET >> Delores Colvin LPN 07/10/2017 8:16 AM >> MARII, DELORES E [employer] SatJul 10, 2017 8:16 AM Not taking. CYCLOBENZAPRINE 10 MG TABLET >> Delores E Marii [employer] 07/10/2017 8:15 AM >> MARII, DELORES E [employer] ENGRA[employer] SatJul 10, 2017 8:15 AM Not taking. GABAPENTIN 300 MG CAPSULE >> Delores E Marii [employer] 07/10/2017 8:14 AM >> MARII, DELORES E [employer] ENGRA[employer] SatJul 10, 2017 8:14 AM Not taking Problem List As Of Date 07/10/2017 Noted Resolved MORBID OBESITY [E66.01] INVALID FOR* Eating disorder, unspecified [F50.9] INVALID FOR* Severe episode of recurrent major depressive di*INVALID FOR* CHRONIC RHINITIS [J31.0] INVALID FOR* More... Malignant neoplasm of breast (female), unspecif*INVALID FOR*11/05/2013 More... Anemia, unspecified [D64.9] INVALID FOR*06/23/2014 Abdominal pain, other specified site [R10.9] INVALID FOR*01/01/2011 Migraine without aura, without mention of intra*INVALID FOR*11/05/2013 Other bursitis disorders [M71.50] INVALID FOR*08/09/2011 Vitamin D deficiency [E55.9] INVALID FOR* Bronchitis, not specified as acute or chronic [*INVALID FOR*07/03/2013 Lumbar radicular syndrome [M54.16] INVALID FOR* Symptomatic states associated with artificial m*INVALID FOR*11/05/2013 Insomnia [G47.00] INVALID FOR* Vitamin D deficiency [E55.9] INVALID FOR*06/06/2010 Obstructive Sleep Apnea (Adult) (Pediatric) [G4*INVALID FOR* More... Abnormal weight gain [R63.5] INVALID FOR*06/25/2011 Pernicious Anemia [D51.0] INVALID FOR* ER+ (Estrogen Receptor Positive Status) [Z17.0] INVALID FOR* Breast Cancer, Stage 1 [C50.919] INVALID FOR* More... Dysphagia [R13.10] INVALID FOR*11/05/2013 Abdominal pain, epigastric [R10.13] INVALID FOR*01/01/2011 Heel pain [M79.673] INVALID FOR*06/23/2014 Vitamin B 12 deficiency [E53.8] INVALID FOR* DJD (degenerative joint disease) of knee [M17.1*INVALID FOR* More... Complex endometrial hyperplasia without atypia *INVALID FOR*11/05/2016 Gastric bypass status for obesity [Z98.84] INVALID FOR* Left knee pain [M25.562] INVALID FOR*11/05/2013 Tendonitis [M77.9] INVALID FOR*11/05/2013 Congenital pes planus [Q66.50] INVALID FOR*11/05/2016 RLQ abdominal pain [R10.31] INVALID FOR*08/11/2015 Abdominal muscle strain [S39.011A] INVALID FOR*08/11/2015 Chronic RLQ pain [R10.31, G89.29] INVALID FOR* Lichen planus [L43.9] INVALID FOR* More... Urge incontinence of urine [N39.41] INVALID FOR* Chronic pain disorder [G89.4] INVALID FOR* More... Prescriptions ordered this encounter Disp Refills Start End MOMETASONE 50 MCG/ACTUATION NASAL SP* 1 Chetan* 11 07/10/2017 Route: NASAL Sig: Use 2 Sprays in the nose once daily. ERGOCALCIFEROL (VITAMIN D2) 50,000 U* 8 ca* 5 07/10/2017 Route: ORAL Sig: Take 1 capsule by mouth twice a week. Medications Discontinued During This Encounter gabapentin (NEURONTIN) 800 mg tablet 11/05/2016 07/10/2017 Class: Historical Med Route: ORAL Sig: Take 1 tablet by mouth three times daily. Dr. Resendiz. Disc: Discontinued by another Health Care Provider oxyCODONE-acetaminophen (PERCOCET) 5* 11/05/2016 07/10/2017 Class: Historical Med Route: ORAL Sig: Take 1 tablet by mouth twice daily as needed for Pain. Per Dr. Resendiz. Disc: Reason for discontinue is not on file. cyclobenzaprine (FLEXERIL) 10 mg tab* 11/05/2016 07/10/2017 Class: Historical Med Route: ORAL Sig: Take 1 tablet by mouth twice daily as needed for Muscle Spasm. Per Dr. Resendiz. Disc: Reason for discontinue is not on file. gabapentin (NEURONTIN) 300 mg capsule 180 * 11 01/13/2015 07/10/2017 Route: ORAL Sig: Take 2 capsules by mouth three times daily. Patient taking differently: Take 400 mg by mouth three times daily. Disc: Reason for discontinue is not on file. hydrOXYzine HCl (ATARAX) 25 mg tablet 40 t* 6 01/02/2016 07/10/2017 Route: ORAL Sig: Take 1 tablet by mouth every 6 hours as needed for Itching/Rash. Disc: Reason for discontinue is not on file. tolterodine ER (DETROL LA) 4 mg 24 h* 30 c* 2 06/03/2017 07/10/2017 Route: ORAL Sig: Take 1 capsule by mouth once daily. Disc: Side Effects mometasone (NASONEX) 50 mcg/actuatio* 1 Chetan* 11 09/22/2015 07/10/2017 Route: NASAL Sig: Use 2 Sprays in the nose once daily. Disc: Reason for discontinue is not on file. VITAMIN D 50,000 unit capsule 8 ca* 6 05/15/2017 07/10/2017 Sig: take 1 capsule by mouth two times a week Disc: Reason for discontinue is not on file. Disposition: Return in about 6 months (around 01/07/2018). Follow-up and Disposition History Recorded Encounter Status:Closed by EMIGDIO ELAINE MD on 07/10/17 OBSOLETE Observed: 06/29/2017 Status: COMPLETED Source: [place] 12:00 AM [facility] REPOSITORY Refill (INTMWS) HALLEY SANCHEZ ([id number]) 1955 F Date Time Provider Department 06/29/17 EMIGDIO ELAINE During your visit today, we recorded the following information about you: Delores Naldo Colvin LPN 07/01/2017 10:43 AM Signed Patient has been identified by name and date of : Yes Pharmacy phones for refill(s): Pending Prescriptions Disp Refills IPRATROPIUM BROMIDE 42 MCG (0.06 %) NASAL SPRAY 15 mL 5 Sig: place 2 sprays into each nostril at bedtime ELIZABETH: Yes Date of last office visit in primary care: 12/18/2016 Last 2 Encounter Wt Readings: Date: Wt: 04/04/2017 150.6 kg (332 lb) 12/18/2016 141.5 kg (312 lb) Previous labs/tests for medication: Blood Counts: WBC (k/uL) Date Value 11/05/2016 5.70 RBC (m/uL) Date Value 11/05/2016 4.57 Hematocrit (%) Date Value 11/05/2016 43.0 Hemoglobin (g/dL) Date Value 11/05/2016 12.9 Platelet Count (k/uL) Date Value 11/05/2016 214 Please advise. Thank you. Delores Driver CNP 07/01/2017 11:10 AM Signed The following approved medication requests have been transmitted electronically. Signed Prescriptions Disp Refills ipratropium bromide (ATROVENT) 42 mcg (0.06 %) nasal spray 15 mL 5 Sig: place 2 sprays into each nostril at bedtime ELIZABETH: No Authorizing Provider: YEN DRIVER (JASON) Yen Driver CNP Allergies As of Date: 06/29/2017 Noted Allergy Reaction CEPHALEXIN 02/17/2005 7 - Swelling MORPHINE 12/26/2006 9 - Itching Date Reviewed: 04/04/2017 Reviewed by: Vikki Kinney Ma - Fully Assessed Reason for Visit: Refill Request [94] Order(s):ipratropium bromide (ATROVENT) 42 mcg (0.06 %) nasal sprayplace 2 sprays into each nostril at bedtimeDisp: 15 mLRfl: 5 Prescriptions as of 06/29/2017 Sig: IPRATROPIUM BROMIDE 42 MCG (0* place 2 sprays into each nost* ACYCLOVIR 400 MG TABLET Take 1 tablet by mouth three * TOLTERODINE ER 4 MG CAPSULE,E* Take 1 capsule by mouth once * VITAMIN D2 50,000 UNIT CAPSULE take 1 capsule by mouth two t* LIDOCAINE 2 % MUCOSAL JELLY Apply 1 application to affect* DULOXETINE 60 MG CAPSULE,DANNY* Take 1 capsule by mouth once * TRIAMCINOLONE ACETONIDE 0.1 %* Apply 1 application to affect* OMEPRAZOLE 20 MG CAPSULE,DANNY* Take 1 capsule by mouth once * ALBUTEROL SULFATE HFA 90 MCG/* inhale 2 puffs by mouth every* GABAPENTIN 800 MG TABLET Take 1 tablet by mouth three * OXYCODONE-ACETAMINOPHEN 5 MG-* Take 1 tablet by mouth twice * CYCLOBENZAPRINE 10 MG TABLET Take 1 tablet by mouth twice * HEATING PADS 1 Each once daily. use one XL* HYDROXYZINE HCL 25 MG TABLET Take 1 tablet by mouth every * MOMETASONE 50 MCG/ACTUATION N* Use 2 Sprays in the nose once* GABAPENTIN 300 MG CAPSULE Take 2 capsules by mouth thre* Patient taking differently: Take 400 mg by mouth three ti* * PEDIATRIC MULTIVITAMIN-IRON C* 1 tablet once daily. Take by * Problem List As Of Date 06/29/2017 Noted Resolved MORBID OBESITY [E66.01] INVALID FOR* Eating disorder, unspecified [F50.9] INVALID FOR* Major Depressive Disorder, Recurrent, Severe [F*INVALID FOR* CHRONIC RHINITIS [J31.0] INVALID FOR* More... Malignant neoplasm of breast (female), unspecif*INVALID FOR*11/05/2013 More... Anemia, unspecified [D64.9] INVALID FOR*06/23/2014 Abdominal pain, other specified site [R10.9] INVALID FOR*01/01/2011 Migraine without aura, without mention of intra*INVALID FOR*11/05/2013 Other bursitis disorders [M71.50] INVALID FOR*08/09/2011 VITAMIN D DEFICIENCY NOS [E55.9] INVALID FOR* Bronchitis, not specified as acute or chronic [*INVALID FOR*07/03/2013 Lumbar radicular syndrome [M54.16] INVALID FOR* Symptomatic states associated with artificial m*INVALID FOR*11/05/2013 Insomnia [G47.00] INVALID FOR* Vitamin D deficiency [E55.9] INVALID FOR*06/06/2010 Obstructive Sleep Apnea (Adult) (Pediatric) [G4*INVALID FOR* More... Abnormal weight gain [R63.5] INVALID FOR*06/25/2011 Pernicious Anemia [D51.0] INVALID FOR* ER+ (Estrogen Receptor Positive Status) [Z17.0] INVALID FOR* Breast Cancer, Stage 1 [C50.919] INVALID FOR* More... Dysphagia [R13.10] INVALID FOR*11/05/2013 Abdominal pain, epigastric [R10.13] INVALID FOR*01/01/2011 Heel pain [M79.673] INVALID FOR*06/23/2014 Vitamin B 12 deficiency [E53.8] INVALID FOR* DJD (degenerative joint disease) of knee [M17.1*INVALID FOR* More... Complex endometrial hyperplasia without atypia *INVALID FOR*11/05/2016 Gastric bypass status for obesity [Z98.84] INVALID FOR* Left knee pain [M25.562] INVALID FOR*11/05/2013 Tendonitis [M77.9] INVALID FOR*11/05/2013 Congenital pes planus [Q66.50] INVALID FOR*11/05/2016 RLQ abdominal pain [R10.31] INVALID FOR*08/11/2015 Abdominal muscle strain [S39.011A] INVALID FOR*08/11/2015 Chronic RLQ pain [R10.31, G89.29] INVALID FOR* Lichen planus [L43.9] INVALID FOR* More... Urge incontinence of urine [N39.41] INVALID FOR* Chronic pain disorder [G89.4] INVALID FOR* More... Prescriptions ordered this encounter Disp Refills Start End IPRATROPIUM BROMIDE 42 MCG (0.06 %) * 15 mL 5 07/01/2017 Sig: place 2 sprays into each nostril at bedtime Medications Discontinued During This Encounter ipratropium bromide (ATROVENT) 0.06 * 1 Chetan* 5 10/16/2016 07/01/2017 Sig: place 2 sprays into each nostril at bedtime Disc: Reason for discontinue is not on file. Encounter Status:Closed by YEN DRIVER CNP on 07/01/17 OBSOLETE Observed: 06/21/2017 Status: COMPLETED Source: [place] 12:00 AM [facility] REPOSITORY Refill (WOOB) HALLEY SANCHEZ ([id number]) 1955 F Date Time Provider Department 06/21/17 WOODY ISABEL During your visit today, we recorded the following information about you: Isabelle Litzy CHIN 06/21/2017 3:14 PM Signed Pt calling and stated that she is having an outbreak of herpes and is needing a refill of her Zovirax. Pt stated that this began on Saturday. Pt uses [facility] pharmacy in [place]. Isabelle Dotson RN 06/21/2017 3:43 PM Signed The following approved medications have been transmitted electronically. Signed Prescriptions Disp Refills acyclovir (ZOVIRAX) 400 mg tablet 30 tablet 0 Sig: Take 1 tablet by mouth three times daily for 10 days. ELIZABETH: No Authorizing Provider: WOODY ISABEL Pharmacy Information Pharmacy Address Telephone [address] [phone] Keysha Dotson RN Allergies As of Date: 06/21/2017 Noted Allergy Reaction CEPHALEXIN 02/17/2005 7 - Swelling MORPHINE 12/26/2006 9 - Itching Date Reviewed: 04/04/2017 Reviewed by: Vikki Kinney Ma - Fully Assessed Reason for Visit: Refill Request [94] Order(s):acyclovir (ZOVIRAX) 400 mg tabletTake 1 tablet by mouth three times daily for 10 days.Disp: 30 tabletRfl: 0 Prescriptions as of 06/21/2017 Sig: ACYCLOVIR 400 MG TABLET Take 1 tablet by mouth three * TOLTERODINE ER 4 MG CAPSULE,E* Take 1 capsule by mouth once * VITAMIN D2 50,000 UNIT CAPSULE take 1 capsule by mouth two t* LIDOCAINE 2 % MUCOSAL JELLY Apply 1 application to affect* DULOXETINE 60 MG CAPSULE,DANNY* Take 1 capsule by mouth once * TRIAMCINOLONE ACETONIDE 0.1 %* Apply 1 application to affect* OMEPRAZOLE 20 MG CAPSULE,DANNY* Take 1 capsule by mouth once * ALBUTEROL SULFATE HFA 90 MCG/* inhale 2 puffs by mouth every* GABAPENTIN 800 MG TABLET Take 1 tablet by mouth three * OXYCODONE-ACETAMINOPHEN 5 MG-* Take 1 tablet by mouth twice * CYCLOBENZAPRINE 10 MG TABLET Take 1 tablet by mouth twice * IPRATROPIUM BROMIDE 42 MCG (0* place 2 sprays into each nost* HEATING PADS 1 Each once daily. use one XL* HYDROXYZINE HCL 25 MG TABLET Take 1 tablet by mouth every * MOMETASONE 50 MCG/ACTUATION N* Use 2 Sprays in the nose once* GABAPENTIN 300 MG CAPSULE Take 2 capsules by mouth thre* Patient taking differently: Take 400 mg by mouth three ti* * PEDIATRIC MULTIVITAMIN-IRON C* 1 tablet once daily. Take by * Problem List As Of Date 06/21/2017 Noted Resolved MORBID OBESITY [E66.01] INVALID FOR* Eating disorder, unspecified [F50.9] INVALID FOR* Major Depressive Disorder, Recurrent, Severe [F*INVALID FOR* CHRONIC RHINITIS [J31.0] INVALID FOR* More... Malignant neoplasm of breast (female), unspecif*INVALID FOR*11/05/2013 More... Anemia, unspecified [D64.9] INVALID FOR*06/23/2014 Abdominal pain, other specified site [R10.9] INVALID FOR*01/01/2011 Migraine without aura, without mention of intra*INVALID FOR*11/05/2013 Other bursitis disorders [M71.50] INVALID FOR*08/09/2011 VITAMIN D DEFICIENCY NOS [E55.9] INVALID FOR* Bronchitis, not specified as acute or chronic [*INVALID FOR*07/03/2013 Lumbar radicular syndrome [M54.16] INVALID FOR* Symptomatic states associated with artificial m*INVALID FOR*11/05/2013 Insomnia [G47.00] INVALID FOR* Vitamin D deficiency [E55.9] INVALID FOR*06/06/2010 Obstructive Sleep Apnea (Adult) (Pediatric) [G4*INVALID FOR* More... Abnormal weight gain [R63.5] INVALID FOR*06/25/2011 Pernicious Anemia [D51.0] INVALID FOR* ER+ (Estrogen Receptor Positive Status) [Z17.0] INVALID FOR* Breast Cancer, Stage 1 [C50.919] INVALID FOR* More... Dysphagia [R13.10] INVALID FOR*11/05/2013 Abdominal pain, epigastric [R10.13] INVALID FOR*01/01/2011 Heel pain [M79.673] INVALID FOR*06/23/2014 Vitamin B 12 deficiency [E53.8] INVALID FOR* DJD (degenerative joint disease) of knee [M17.1*INVALID FOR* More... Complex endometrial hyperplasia without atypia *INVALID FOR*11/05/2016 Gastric bypass status for obesity [Z98.84] INVALID FOR* Left knee pain [M25.562] INVALID FOR*11/05/2013 Tendonitis [M77.9] INVALID FOR*11/05/2013 Congenital pes planus [Q66.50] INVALID FOR*11/05/2016 RLQ abdominal pain [R10.31] INVALID FOR*08/11/2015 Abdominal muscle strain [S39.011A] INVALID FOR*08/11/2015 Chronic RLQ pain [R10.31, G89.29] INVALID FOR* Lichen planus [L43.9] INVALID FOR* More... Urge incontinence of urine [N39.41] INVALID FOR* Chronic pain disorder [G89.4] INVALID FOR* More... Prescriptions ordered this encounter Disp Refills Start End ACYCLOVIR 400 MG TABLET 30 t* 0 06/21/2017 07/01/2017 Route: ORAL Sig: Take 1 tablet by mouth three times daily for 10 days. Medications Discontinued During This Encounter acyclovir (ZOVIRAX) 400 mg tablet 30 t* 0 04/04/2017 06/21/2017 Route: ORAL Sig: Take 1 tablet by mouth three times daily for 10 days. Disc: Reason for discontinue is not on file. Encounter Status:Closed by WOODY ISABEL MD on 06/21/17 ALLERGIES ALLERGIES DATE TYPE / CODE NAME / CODE REACTION SEVERITY SOURCE 06/07/2018 Drug morphine/[id number] Itching Unknown [place] Allergy/416 45(RXNORM) Counts Include [facility] [id number]([facility] ED CT) Repository 06/07/2018 Drug cephalexin/X54925 Itching Unknown [place] Allergy/416 2716(RXNORM) Counts Include [facility] 927159([facility] ED CT) Repository 12/26/[address] [facility] INGREDI/419 [facility] 486531([facility] ED CT) 02/17/2005 DRUG CEPHALEXIN SWELLING [facility] INGREDI/419 [facility] 999152(SNOM Repository ED CT) ENCOUNTERS ENCOUNTERS ADMIT/DISCHARGE ACCOUNT NUMBER ADMITTING ENCOUNTER LOCATION SOURCE CLASS 06/07/2018 [id number] Ambulatory [facility] ding:LABSPEC Repository 06/07/2018/06/07/20 [id number] Ambulatory BMSBuilding: [place] 18 BMS.[facility] Repository 05/26/2018/05/26/20 [id number] Ambulatory [address] ding:SDCRoom Repository : AC14 05/13/2018 [id number] Ambulatory [facility] ding:LAB Repository 05/13/2018/05/13/20 [id number] Ambulatory BMSBuilding: [place] 18 BMS.[facility] Repository 05/05/2018/05/05/20 [id number] Ambulatory BMSBuilding: [place] 18 BMS.[facility] Repository 04/09/2018/04/09/20 [id number] Ambulatory BMSBuilding: [place] 18 BMS.[facility] Repository 12/17/2017/12/19/19 [id number] Ambulatory [address] Repository 11/05/2017/11/07/19 [id number] Ambulatory [address] Repository 08/14/2017/08/14/19 [id number] Ambulatory BBuilding:RA Hernandez [address] [place] [address] Repository 07/10/2017/07/10/19 [id number] Ambulatory [address] Repository 07/10/2017/07/11/19 [id number] Ambulatory [address] Repository PAYERS PAYERS ENCOUNTER GUARANTOR PAYER SUBSCRIBER SOURCE 06/07/2018 HALLYE Suazo Primary HALLEY Garcia [id number] JUAN Insurance:[facility] NELSONDOB: [place], [place]IN [facility] [id number] Hospital [address]Shd: [phone]) Number: Repository [phone] HP) [id number] Date:6625-26-72TIEW CLAIMS [address] [place] [address]NR: 06/07/2018 Secondary NOT GIVENUNK [place] Insurance:SELF PAY [facility] Number: Effective Repository Date:2018-06-07 06/07/2018 HALLEY Suazo Primary HALLEY [id number] JUAN Insurance:[facility] [facility] [place]DOB[place] [facility] [id number] Hospital [address]Unh: (330) Number: Repository [phone] () [id number] Date:[id number] CLAIMS [address], [place] [address]BS: 06/07/2018 Secondary NOT GIVENUNK [place] Insurance:SELF PAY [facility] Number: Effective Repository Date:2018-06-07 05/26/2018 HALLEY Suazo Primary HALLEY [id number] JUAN Insurance:[employer] [facility] NELSONDOB: Counts Include [facility] [place] [facility] [id number] Hospital [address]Ckt: [phone] Number: Repository [phone] () [id number] Date:2465-23-53ZQXN CLAIMS [address], [place] [address]GW: 05/26/2018 Secondary NOT GIVENUNK [place] Insurance:SELF PAY [facility] Number: Effective Repository Date:2018-05-21 05/13/2018 HALLEY Suazo Primary HALLEY Garcia [id number] JUAN Insurance:[employer] NELSONDOB: Counts Include [facility] [facility] [id number] Hospital [address]Uzz: [phone] Number: Repository [phone] () [id number] Date:[id number] CLAIMS [address], [place] [address]II: 05/13/2018 Secondary NOT GIVENUNK [place] Insurance:SELF PAY [facility] Number: Effective Repository Date:2018-05-13 05/13/2018 HALLEY Suazo Primary HALLEY [id number] JUAN Insurance:[employer] NELSONDOB: Counts Include 234 [facility] [place] [address]03-06[facility] [address]Fpe: [phone] Number: Repository [phone] () [id number] Date:7782-07-74RGAB CLAIMS [address] [place] [address]FI: 05/13/2018 Secondary NOT GIVENUNK [place] Insurance:SELF PAY [facility] Number: Effective Repository Date:2018-05-13 05/05/2018 HALLEY L Primary NOT GIVENUNK [place] [id number] JUAN Insurance:SELF PAY [facility] [address]Aqf: [phone]) Number: Effective Repository [phone] () Date:2018-05-05 04/09/2018 HALLEY L Primary HALLEY Suazo [id number] JUAN Insurance:[facility] NELSONDOB: [place], [place] [facility] [id number] Hospital [address]Cqh: [phone] Number: Repository [phone] () [id number] Date:2128-25-88GXEB [facility]S [facility] [address] [place] [address]VJ: 04/09/2018 Secondary NOT GIVENUNK [place] Insurance:SELF PAY [facility] Number: Effective Repository Date:2018-04-02 08/14/2017 HALLEY L Primary HALLEY Suazo [facility] NELSONDOB: [facility] [id number] Repository [facility] Number: [address] [place], [place] [id number] [place], [place] [address]Ydx: [phone]) Date:2017-06-24 [address]Izj: () [id number] [phone] Name:TATO Claims ()Tel: [phone]) [phone] () [address], [place] [address]NI:
== END 2018-05-26 10:43 | disposition home or self-care (01) ==
LOC: SDC 07:52 → AC 07:52
PROVIDERS: Family Provider Internal Medicine; PCP Internal Medicine; Referring Provider Anesthesiology Pain Medicine; Visit Provider Anesthesiology Pain Medicine
PROC: 3E0U3GC Introduction of Other Therapeutic Substance into Joints, Percutaneous Approach (ICD-10-PCS; CPT 20610; principal; 2018-05-26 09:25)
DX: M17.12 Unilateral primary osteoarthritis, left knee (principal); M47.817 Spondylosis without myelopathy or radiculopathy, lumbosacral region; M51.37 Other intervertebral disc degeneration, lumbosacral region; M54.17 Radiculopathy, lumbosacral region; E07.9 Disorder of thyroid, unspecified; E78.00 Pure hypercholesterolemia, unspecified; J45.909 Unspecified asthma, uncomplicated; K21.9 Gastro-esophageal reflux disease without esophagitis; F32.9 Major depressive disorder, single episode, unspecified; E66.01 Morbid (severe) obesity due to excess calories; Z68.44 Body mass index [BMI] 60.0-69.9, adult; Z78.0 Asymptomatic menopausal state; Z79.891 Long term (current) use of opiate analgesic; Z79.899 Other long term (current) drug therapy; Z98.84 Bariatric surgery status; Z85.3 Personal history of malignant neoplasm of breast
CPT/HCPCS: 20610; 76000; 77002; J7120

== ENCOUNTER → 2018-06-07 15:07 | Outpatient (CLI) | payer MEDICARE, SELFPAY ==
[2018-06-07 13:54] VITALS: BMI 61.2
[2018-06-07 15:19] LABS: Color, Urine Yellow (Yellow); Glucose, Dipstick Normal (Normal); Ketone-Dipstick Negative (Negative); Leukocyte Esterase-Dipstick 500 /ul (Negative); Mucous, Urine 0 SEEN /hpf (<or=2+); Nitrite-Dipstick Negative (Negative); Occult Blood-Urine Negative /ul (Negative); Protein-Dipstick Negative (Negative); Red Blood Cells-Urine 0 SEEN /hpf (0-5); Urine Bilirubin Dipstick Negative (Negative); Urine Clarity Clear (Clear); Urine Urobilinogen Normal (Normal)
[2018-06-07 16:00] LABS: Squamous Epithelial Cells - UA 0-5 SEEN /hpf (5-10)
[2018-06-07 16:01] LABS: Bacteria 1+ /hpf (None Seen)
[2018-06-07 16:02] LABS: White Blood Cells 5-10 SEEN /hpf (0-5)
--- OUTSIDE RECORDS SUMMARY | 2018-09-10 11:37 | XMS RPT_ITS ---
:1955 Author Organization OHIP Care Team Providers Name Role Phone GAVI GERMAIN (PIN GAME MACHINE INSPECTOR) Attending Unavailable [facility] MICHELINE GOMEZ Attending Unavailable ARGENTINA LENNON, DR. BURT Primary Care Unavailable Roxanna Basurto Attending Unavailable Oleghe, Efewongbe Referring Unavailable Roxanna Basurto Attending Unavailable Oleghe, Efewongbe Primary Care Unavailable Oleghe, Efewongbe Attending Unavailable Oleghe, Efewongbe Referring Unavailable Jemal Yanez Attending Unavailable Oleghe, Efewongbe Referring Unavailable Oleghe, Efewongbe Attending Unavailable Oleghe, Efewongbe Referring Unavailable Tomas Resendiz Attending Unavailable Tomas Resendiz Referring Unavailable Oleghe, Efewongbe Primary Care Unavailable Oleghe, Efewongbe Attending Unavailable Oleghe, Efewongbe Referring Unavailable Oleghe, Efewongbe Primary Care Unavailable Tomas Resendiz Attending Unavailable Tomas Resendiz Referring Unavailable Oleghe, Efewongbe Primary Care Unavailable PROBLEMS PROBLEMS DATE TYPE CONDITION / CODE ATTENDING STATUS SOURCE 06/21/2018 Unknown N30.01 - Acute Sb, Active [place] cystitis with [facility] hematuria / Hospital N30.01(ICD-10) Repository 06/13/2018 Unknown N89.8 - Other Basurto, Active [place] specified [facility] noninflammatory Hospital disorders of vagina / Repository N89.8(ICD-10) 06/13/2018 Unknown B37.3 - Candidiasis Basurto, Active [place] of vulva and vagina / [facility] B37.3(ICD-10) Hospital Repository 05/13/2018 Unknown F32.9 - Major Oleghe, Active [place] depressive disorder, [facility] single episode, Hospital unspecified / Repository F32.9(ICD-10) 05/13/2018 Unknown 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, 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, not [facility] elsewhere classified Hospital / K91.2(ICD-10) Repository 05/13/2018 Unknown E66.01 - Morbid Oleghe, Active [place] (severe) obesity due [facility] to excess calories / Hospital E66.01(ICD-10) Repository 12/17/2017 Active Unknown / GAVI GERMAIN Active [place]am UNK(Unknown) ([facility]) Clinic Main [place] Repository PROCEDURES PROCEDURES No Procedure Records FoundRESULTS RESULTS URGENT CARE VISIT Observed: 06/08/2018 Status: F Source: [place] REPORT 12:53 PM [facility] [place] [address] OFFICE VISIT Date of Service: 06/07/18 MR#: [id number] Acct: [id number] Name: HALLEY SANCHEZ Rep #: [id number] : 1955 Provider: Roxanna Basurto Age/Sex: 62/F Location: [facility] Status: Signed Intake Vital Signs06/07/18 Body Mass Index (BMI) 61.2 06/07/18 Height 5 ft 3 in 06/07/18 Weight: 345 lb 06/07/18 Body Mass Index (BMI) 61.1 06/07/18 Blood Pressure 136/88 H 06/07/18 Respiratory Rate 14 Intake Visit Reasons: VAGINAL DISCHARGE Chief Complaint: DISCHARGE/UTI Cylinder Devalver Required: No Accompanied by: SELF Is patient [...] after first dose if symptoms persist Discontinued Saline son: By Stop Date Coding Level of Care Code Off vis,new,level 3 Diagnoses Acute cystitis with hematuria N30.01 Hematuria presence: with hematuria Urinary tract infection type: acute cystitis Vaginal candidiasis B37.3 06/08/18 1253 <Electronically signed by Roxanna HARRINGTON> Date Roxanna HARRINGTON Cosigner Signature: Date (if applicable) CC: URINALYSIS, COMPLETE Collected: 06/07/2018 Status: F Source: [place] 1:50 PM [facility] REPOSITORY Order Comment: How was Urine Obtained? [...] URINE SEEN Performed By: #### L400.0001 #### [facility] [address] [place], [address] Observed: 06/07/2018 Status: F Source: [facility] HE[facility] CULTURE, URINE 1:50 PM [facility] REPOSITORY Urine Culture ORGANISM 1: Mixed Gram Positive Organisms [place] Count 1000-10,000 MIX CULTURE Mixed contaminants. Submit a new specimen if indicated. Performed By: #### M100.0650 #### [facility] [address] [place], [address] OPERATIVE REPORT Observed: 05/26/2018 Status: F Source: [place] 10:30 AM [facility] REPOSITORY [facility] Medical Records Department [address] [place] [address] Operative Report 05/26/18 1026 MR#: [id number] Acct: [id number] Name: HALLEY SANCHEZ Rep #: [id number] : 1955 62 From: Tomas Resendiz MD PCP: Catrachita Ham MD Status: [facility] Y Location: [place] [address] Problem List (1) Primary osteoarthritis of left [...] PLACEMENT 3:26 AM [facility] REPOSITORY [facility] Imaging Services [address] [address] Fluoro Guided Needle Placement MR#: [id number] Acct: [id number] Name: HALLEY SANCHEZ Rep #: [id number] : 1955 F 62 From: Yamile Guevara MD PCP: Catrachita Ham MD Status: [facility] Study: Fluoro Guided Needle Placement Date of Exam: 05/26/18 Exam# [id number] Ordering Dr: Tomas Resendiz MD STUDY: Preoperative [...] EST Tel , Service support , CC: Catrachita Ham MD; Tomas Resendiz Photographic Double: Signed INTERNAL MEDICINE Observed: 05/13/2018 Status: F Source: [place] OFFICE VISIT 5:[address] [facility] Internal Medicine [address] [place] [address] [place] [address] OFFICE VISIT Date of Service: 05/13/18 MR#: [id number] Acct: [id number] Name: HALLEY SANCHEZ Rep #: [id number] : 1955 Provider: Catrachita Ham MD Age/Sex: 62/F Location: [facility] Status: Signed Intake Vital Signs05/13/18 Height 5 [...] BID PRN cap 04/09/18 [History Confirmed 05/13/18] [facility] Medical History Vitamin deficiency (Chronic) Skin cancer [...] for many years. Investigations done at the [facility] were without any significant abnormality. She also [...] acute distress Nutritional Appearance: obese morbidly obese [facility] Head: atraumatic, normocephalic, normal to inspection Ears: [...] next visit. This note was generated with Fitz Lodgeation software. It may contain incorrect words, spelling, [...] JOSE 10:45 AM [facility] REPOSITORY TYPE CODE TESTS RESULT OUT OF [...] Lymph 2.00 Performed By: #### L100.0100 #### [facility] [address] [place], [place], [address] HEMOGLOBIN A1C Collected: 05/13/2018 Status: F Source: [facility] [place] 10:45 AM [facility] REPOSITORY TYPE CODE TESTS RESULT OUT OF RANGE REFERENCE UNITS LAB L501.9985 4.2-6.3 % Normal HGB A1C 6.1 Performed By: #### L501.9985 #### [facility] [address] [place], [address] COMPREHENSIVE METABOLIC Collected: 05/13/2018 Status: F Source: [facility] 10:45 AM [facility] REPOSITORY TYPE CODE TESTS RESULT OUT OF [...] GAP 4 Performed By: #### L500.4050 #### [facility] [address] [place], [place], [address] VITAMIN B12 Collected: 05/13/2018 Status: F Source: [place] 10:45 AM [facility] REPOSITORY TYPE CODE TESTS RESULT OUT OF RANGE REFERENCE UNITS LAB L503.0105 211-911 pg/mL Normal Vitamin B12 211 Performed By: #### L503.0105, L506.1000 #### [facility] [address] [place], [address] VITAMIN D,25 HYDROXY Collected: 05/13/2018 Status: F Source: [place] 10:45 AM [facility] REPOSITORY TYPE CODE TESTS RESULT OUT OF REFERENCE UNITS RANGE LAB L506.1000 29.95-100.01 ng/mL Low Vitamin D 25.3 25-OH Result Comment: Vitamin D 25(OH) Status Range Deficiency <20 ng/mL (50nmol/L) Insuffciency 20 - 30 ng/mL (50 - 75 nmol/L) Sufficiency 30 - 100 ng/mL (75 - 250 nmol/L) Toxicity >100 ng/mL (>250 nmol/L) Performed By: #### L503.0105, L506.1000 #### [place] [facility] [address] [place], [address] INTERNAL MEDICINE Observed: 04/10/2018 Status: F Source: [place] OFFICE VISIT 5:24 PM [facility] REPOSITORY [facility] [address] [place] [address] OFFICE VISIT Date of Service: 04/09/18 MR#: [id number] Acct: [id number] Name: HALLEY SANCHEZ Rep #: [id number] : 1955 Provider: Catrachita Ham MD Age/Sex: 62/F Location: [facility] Status: Signed Intake Vital Signs04/09/18 Height 5 ft 3 in 04/09/18 Weight: 340 lb 04/09/18 Body Mass Index (BMI) 60.2 04/09/18 Blood Pressure 132/66 H Intake Visit Reasons: EST CARE, TRANSF FROM [facility] Chief Complaint: Est Care - Transfer from [facility] Is patient in pain?: Yes (LLQ) Pain [...] Chief Complaint: Est Care - Transfer from [facility] Details: HALLEY SANCHEZ, is a 62yo F who presents to the office today establish care. She had previously followed up at the [facility]. She also has some complaints. She reports [...] acute distress Nutritional Appearance: obese morbidly obese [facility] Head: atraumatic, normocephalic, normal to inspection Ears: [...] weight changes. Will request records from the [facility]. Possibly get a CAT scan on review of records. Follow-up in a month. 2. Depression F32.9 Plan Stable. Continue current medication. Follow-up at next visit 3. Morbid obesity E66.01 Plan Status post gastric bypass surgery. However significantly regained weight after surgery. Currently following up at the bariatric center at [facility]. Lifestyle/dietary modifications discussed. Follow-up at next visit. This note was generated with Fitz Lodgeation software. It may contain incorrect words, spelling, [...] applicable) CC: Observed: 12/17/2017 Status: F Source: [place] BACT/CAND VAG GRM [facility] 11:35 AM [facility] REPOSITORY Sp. Request/Comment: - Swab Smear Result - BACTERIAL VAGINOSIS RESULT: Stain results consistent with bacterial vaginosis. --> ABNORMAL ALERT No Yeast observed Clue cells present --> ABNORMAL ALERT No Polymorphonuclear Leukocytes Performed By: #### BVCNSM #### [facility] [address] [place], [place] [address] CNOV Observed: 12/17/2017 Status: COMPLETED Source: [place] 11:00 AM [facility] REPOSITORY Office Visit (WOOB) HALLEY SANCHEZ ([id number]) 1955 F Date Time Provider Department 12/17/17 11:00 AM GAVI GERMAIN (JASON) WOOB During your visit today, we recorded the following information about you: Blood pressure Weight 126/82 156.5 kg Gavi Germain APRN.CNP 12/17/2017 2:23 PM Addendum Halley Sanchez is [...] external genitalia normal, normal Bartholin's glands, urethra, [place]'s glands, no vulvar lesions, no cervical lesions, good vaginal support, normal appearing perineal body and perianal region, abnormal discharge small amount white BIMANUAL: unable to evaluate due to body habitus. Component Results Component Value Range AND Units Status Performing Lab Glucose, Urine neg Neg mg/dL Final Unknown Bilirubin, Urine neg Neg Final Unknown Ketones, Urine neg Neg Final Unknown Specific [place], Ur 1.010 1.005 - 1.030 Final Unknown [...] Itching Date Reviewed: 12/17/2017 Reviewed by: Gavi Germain - Fully Assessed Primary Visit Diagnosis:Vagina itching [L29.8] Other Visit Diagnoses:BV (bacterial vaginosis) [N76.0, B96.89] Dysuria [R30.0] Order(s):UA DIP B/O [8324011] Order #: [id number] clotrimazole-betamethasone 1-0.05 % (LOTRISONE)Disp: Rfl: BACT/DANETTE VAG GRAM STAIN [SQBVCNSM] Order #: [id number] FUTURE RAPID BV B/O [8593463] Order #: [id number] metroNIDAZOLE (FLAGYL) 500 mg tabletTake 1 tablet [...] for 7 days. Encounter Status:Closed by GAVI GERMAIN on 12/17/17 PROGRESS Observed: 12/17/2017 Status: COMPLETED Source: [place] 10:57 AM [facility] REPOSITORY HNO ID: [id number] Author: Gavi Germain Service: (none) Author Type: Nurse Practitioner Type: [...] external genitalia normal, normal Bartholin's glands, urethra, [place]'s glands, no vulvar lesions, no cervical lesions, good vaginal support, normal appearing perineal body and perianal region, abnormal discharge small amount white BIMANUAL: unable to evaluate due to body habitus. Component Results Component Value Range AND Units Status Performing Lab Glucose, Urine neg Neg mg/dL Final Unknown Bilirubin, Urine neg Neg Final Unknown Ketones, Urine neg Neg Final Unknown Specific [place], Ur 1.010 1.005 - 1.030 Final Unknown [...] of lab results. Follow-up as needed. 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 breast - Chronic rhinitis 03/15/2005 - [...] SEROMA, POST OP 10/14/2006 - Unspecified asthma(493.90) 78618683 - Vitamin D deficiency 04/26/2009 PAST SURGICAL HISTORY Procedure Laterality Date - APPENDECTOMY 1997 incidental at time of GBP in [place] - BX OF BREAST; INCISIONAL Bx of breast, incisional, left - COLONOSCOP W/ OR W/O [facility]SH SPEC 03/26/2012 Colonoscopy - EGD W/O [facility] SPECIMEN W/BX 01/10/10 post gastric bypass, minimal inflammation - GASTRIC BYPASS,OBESE<100CM BLAKE-EN-Y 1997 [place], incidental appendectomy, choelcystectomy, liver biopsy - I AND D HEMATOMA, SEROMA 11/08/2006 Right chest seroma excised - LEFT HEART CATH,PERCUTANEOUS Cardiac cath, L heart - MASTECTOMY PARTIAL 2001 left breast, completed radiation - MASTECTOMY,SIMPLE 01/04/2006 left breast with SLND - MASTECTOMY,SIMPLE 01/04/2006 right breast - REMOVAL GALLBLADDER 1997 in conjunction with GBP in [place] - REPAIR OF ACHILLES TENDON September 16, [...] Heart Sister CHF - Heart Brother 3 UT's, Pacemaker - Stroke Brother - Tuberculosis [OTHER] [...] APRN.JASON CNOV Observed: 11/05/2017 Status: COMPLETED Source: [place] 2:15 PM [facility] REPOSITORY Office Visit (WSTR) HALLEY SANCHEZ ([id number]) 1955 F Date Time Provider Department 11/05/17 2:15 PM JELLY EDUARDO (DYE TUB OPERATOR) WSTR During your visit today, we recorded the following information about you: Temperature Pulse Respiration Blood pressure 97.6 degrees 62/minute 18/minute 126/86 Weight 154.2 kg Jelly Eduardo APRN.PIN GAME MACHINE INSPECTOR 11/05/2017 4:38 PM Signed Subjective HPI Patient [...] 11/25/2009 - Carcinoma in situ of breast [id number] left breast - Chronic rhinitis 03/15/2005 - [...] SEROMA, POST OP 10/14/2006 - Unspecified asthma(493.90) 96821383 - Vitamin D deficiency 04/26/2009 PAST SURGICAL HISTORY Procedure Laterality Date - APPENDECTOMY 1997 incidental at time of GBP in [place] - BX OF BREAST; INCISIONAL Bx of breast, incisional, left - COLONOSCOP W/ OR W/O [facility] SPEC 03/26/2012 Colonoscopy - EGD W/O [facility] SPECIMEN W/BX 01/10/10 post gastric bypass, minimal inflammation - GASTRIC BYPASS,OBESE<100CM BLAKE-EN-Y 1997 [place], incidental appendectomy, choelcystectomy, liver biopsy - I AND D HEMATOMA, SEROMA 11/08/2006 Right chest seroma excised - LEFT HEART CATH,PERCUTANEOUS Cardiac cath, L heart - MASTECTOMY PARTIAL 2001 left breast, completed radiation - MASTECTOMY,SIMPLE 01/04/2006 left breast with SLND - MASTECTOMY,SIMPLE 01/04/2006 right breast - REMOVAL GALLBLADDER 1998 in conjunction with GBP in [place] - REPAIR OF ACHILLES TENDON September 16, [...] Heart Sister CHF - Heart Brother 3 UT's, Pacemaker - Stroke Brother - Tuberculosis [OTHER] [...] agreeable to treatment plan. Jelly Eduardo APRN.JASON Eduardo APRN.JASON 11/05/2017 2:41 PM Signed RESPIRATORY INFECTION [...] by coughs, sneezes, and direct contact, especially yxtz-ge-wcay. A respiratory tract infection usually clears up [...] humidifier in your child?s room. A humidifier (spuh-QDV-fj-fye-ur) puts water into the air to help [...] Warning About Cold and Cough Medicines The [place] [employer] strongly recommends that tezt-spl-otphuhx cough and cold medications not be given [...] Take daily with food.Disp: 10 tabletRfl: 0 Kifvheikziswtxx-Pngbpfzmv-PQ (BROMFED DM) 2-30-10 mg/5 mL syrupTake 10 [...] by coughs, sneezes, and direct contact, especially egzj-ae-gmst. A respiratory tract infection usually clears up [...] humidifier in your child?s room. A humidifier (lhem-EIL-gm-fye-ur) puts water into the air to help [...] Warning About Cold and Cough Medicines The [place] [employer] strongly recommends that biau-zro-pagvwqo cough and cold medications not be given [...] for 5 days. Take daily with food. SOYWJMQRYDHHHFE-NWEBRCRNNUDGRPM-IX 2* 240 * 0 11/05/2017 11/12/2017 Route: ORAL Sig: Take 10 mL by mouth four times daily as needed for up to 7 days. Disposition: Return if symptoms worsen or fail to improve. Follow-up and Disposition History Recorded Encounter Status:Closed by JELLY EDUARDO on 11/05/17 CNCO Observed: 09/20/2017 Status: COMPLETED Source: [place] 12:00 AM [facility] REPOSITORY Letter Text [facility] Department of Internal Medicine [address] [place], [place] [address] Halley Sanchez [address] [facility] [address] September 20, 2017 Dear , Due to unforeseen circumstances, there has been a change in the schedule for Emigdio Crowell MD Your original appointment scheduled for 01/08/2018 at 8:00 AM has been rescheduled to 01/08/2018 at 4:00 PM. If this is not convenient, please give our office a call at [phone]. I apologize for any inconvenience this may cause you. Sincerely, Department of Internal Medicine [facility] XR SPINE LUMBAR Observed: 08/14/2017 Status: F Source: [facility] AP/LAT 3:01 PM [facility] REPOSITORY ORIGINAL XR [...] 4:47:29 PM Sign Date: 08/14/2017 4:47:52 PM ALLERGIES ALLERGIES DATE TYPE / CODE NAME / CODE REACTION SEVERITY SOURCE 07/11/2018 Drug morphine/[id number] Itching Unknown [place] Allergy/416 45(RXNORM) [facility] 278675([facility] ED CT) Repository 07/11/2018 Drug cephalexin/X67368 Itching Unknown [place] Allergy/416 2716(RXNORM) [facility] 026433([facility] ED CT) Repository 12/26/2006 DRUG MORPHINE ITCHING [place] [address] [address](SNOM Repository ED CT) 02/17/2005 DRUG CEPHALEXIN SWELLING [address] [address](SNOM Repository ED CT) ENCOUNTERS ENCOUNTERS ADMIT/DISCHARGE ACCOUNT NUMBER ADMITTING ENCOUNTER LOCATION SOURCE CLASS 07/14/2018 [id number] Ambulatory [facility] ding:SDC Repository 06/07/2018 [id number] Ambulatory [facility] ding:LABSPEC Repository 06/07/2018/06/07/20 [id number] Ambulatory BMSBuilding: [place] [address] BMS.[facility] Repository 05/26/2018/05/26/20 [id number] Ambulatory [address] ding:SDCRoom Repository : AC14 05/13/2018 [id number] Ambulatory [facility] ding:LAB Repository 05/13/2018/05/13/20 [id number] Ambulatory BMSBuilding: [place] 18 BMS.[facility] Repository 05/05/2018/05/05/20 [id number] Ambulatory BMSBuilding: [place] 18 BMS.[facility] Repository 04/09/2018/04/09/20 [id number] Ambulatory BMSBuilding: [place] 18 BMS.[facility] Repository 12/17/2017/12/19/19 [id number] Ambulatory [address] Repository 11/05/2017/11/07/19 [id number] Ambulatory [address] Repository 08/14/2017/08/14/19 [id number] Ambulatory BBuilding:RA [place] [address] [place] [address] Repository PAYERS PAYERS ENCOUNTER GUARANTOR PAYER SUBSCRIBER SOURCE 07/14/2018 HALLEY L Primary HALLEY L [place] [id number] SHERYL Insurance:[facility] NELSONDOB: [place], [place] [facility] [id number] Hospital [address]Cbv: 330) Number: Repository [phone] ) [id number] Date:9739-70-07GCAE CLAIMS [address] [place] [address]XU: 07/14/2018 Secondary NOT GIVENUNK [place] Insurance:SELF PAY [facility] Number: Effective Repository Date:2018-07-07 06/07/2018 HALLEY Suazo Primary HALLEY SANCHEZ[address]43 [address] Insurance:[facility] NELSONDOB: [place] [facility] [id number] Hospital [address]Dsv: (330) Number: Repository [phone] () [id number] Date:7847-35-80JQZN CLAIMS [address] [address]NT: 06/07/2018 Secondary NOT GIVENUNK [place] Insurance:SELF PAY [facility] Number: Effective Repository Date:2018-06-07 06/07/2018 HALLEY Suazo Primary HALLEY SANCHEZ1343 [place] Insurance:[facility] [facility] NELSONDOB: [facility] [place] [facility] [id number] Hospital [address]Gnx: ([phone]) Number: Repository [phone] () [id number] Date:1382-24-74HHIH CLAIMS [address] [address]PB: 06/07/2018 Secondary NOT GIVENUNK [place] Insurance:SELF PAY [facility] Number: Effective Repository Date:2018-06-07 05/26/2018 HALLEY Suazo Primary HALLEY SANCHEZ1343 [place] Insurance:[employer] [facility] NELSONDOB: [facility] [place] [facility] [id number] Hospital [address]Num: [phone]) Number: Repository [phone] () [id number] Date:4096-49-50NZTX CLAIMS [address] [address]WV: 05/26/2018 Secondary NOT GIVENUNK [place] Insurance:SELF PAY [facility] Number: Effective Repository Date:2018-05-21 05/13/2018 HALLEY Suazo Primary HALLEY SANCHEZ1343 [place] Insurance:[employer] [facility] NELSONDOB: [place] [address] [address]Mfl: (330) Number: Repository [phone] () [id number] Date:5012-24-65TALT CLAIMS [address] [place] [address]NG: 05/13/2018 Secondary NOT GIVENUNK [place] Insurance:SELF PAY [facility] Number: Effective Repository Date:2018-05-13 05/13/2018 HALLEY L Primary HALLEY Garcia [id number] [place] Insurance:[employer] [facility] NELSONDOB: [place], [place] [facility] [id number] Hospital [address]Rwl: (330) Number: Repository [phone] () [id number] Date:5016-33-22DHJR CLAIMS [facility] [address] [address]VH: 05/13/2018 Secondary NOT GIVENUNK [place] Insurance:SELF PAY [facility] Number: Effective Repository Date:2018-05-13 05/05/2018 HALLEY L Primary NOT GIVENUNK [place] [id number] [place]ERY[place] Insurance:SELF PAY [facility] [address]Lyy: (330) Number: Effective Repository [phone] () Date:2018-05-05 04/09/2018 HALLEY L Primary HALLEY [place] [id number] [place] [facility] NELSONDOB: [place], [place] [facility] [id number] Hospital [address]Fbc: (330) Number: Repository [phone] () [id number] Date:6813-46-37IDIP CLAIMS [address] [place] [address]LR: 04/09/2018 Secondary NOT GIVENUNK [place] Insurance:SELF PAY [facility] Number: Effective Repository Date:2018-04-02 08/14/2017 HALLEY L Primary HALLEY Suazo [facility] [id number] Repository SHERYL [facility] Number: [address] [place], [place] [id number] [place], [place] [address]Tea: (076) Date:2017-06-24 [address]Kny: () 1714-11-29Gucr [phone] Name:TATO Claims ()Tel: [phone]) DeptPO [address] () [address], [place] [address]QQ:
== END ==
PROVIDERS: Family Provider Internal Medicine; PCP Internal Medicine; Visit Provider Physician Assistant Medical
DX: N30.01 Acute cystitis with hematuria (principal); N89.8 Other specified noninflammatory disorders of vagina
CPT/HCPCS: 81001; 87086; 87088

== ENCOUNTER → 2018-07-23 12:13 | Outpatient (CLI) | payer MEDICAID, SELFPAY ==
[2018-07-17 17:02] VITALS: BMI 61.2
[2018-07-23 14:11] LABS: Anion Gap 6 (5-15); BUN 10 mg/dL (7-18); BUN/Creat Ratio 14.6 RATIO (10-20); Calcium,Total 8.8 mg/dL (8.5-10.1); Chloride 107 mmol/L (98-107); Creatinine, Serum 0.69 mg/dL (0.55-1.02); EST Glomerular Filtration Rate 92 mL/min (>60); Est Glom Filt Rate - Afr Amer 112 mL/min (>60); Glucose 87 mg/dL (74-106); Potassium 3.8 mmol/L (3.5-5.1); Sodium Level 141 mmol/L (136-145)
== END ==
PROVIDERS: Family Provider Internal Medicine; PCP Internal Medicine; Referring Provider Internal Medicine; Visit Provider Internal Medicine
DX: R25.2 Cramp and spasm (principal)
CPT/HCPCS: 36415; 80048

== ENCOUNTER 2018-08-11 10:48 | Day surgery (SDC) | payer MEDICARE, SELFPAY ==
[2018-06-07 13:54] VITALS: BMI 61.2
[2018-07-17 17:02] VITALS: BMI 61.2
[2018-08-11] VITALS (8 sets, daily range): BP systolic 107–128; BP diastolic 58–87; PULSE 52–68; RESP 16–18; TEMP 36.2–36.9; O2SAT 98–100; BMI 60.5
--- NOTE | 2018-08-11 11:50 | RAD_ITS ---
PROCEDURE: Caudal block. DATE OF EXAMINATION: August 11, 2018. INDICATION: Female, 62 years old. Chronic low back pain. FLUOROSCOPY TIME (if supplied): (0:12) minutes/seconds. 2 spot views were obtained intraoperatively. Intraoperative imaging provided for caudal block. The spinal needle is seen overlying the posterior aspect of the mid sacrum. RAD/Fluoro Guided Needle Placement IMPRESSION: Intraoperative imaging provided for caudal block. Electronically Signed: Jann Rosenberg MD at 13:05 EST , Service support ,
[2018-08-11] MEDS: Bupivacaine 0.25% 30 ML Vial (11:56)
[2018-08-11] MEDS: MethylPREDNISolone Acetate 80 MG/ML Vial (11:56)
--- NOTE | 2018-08-11 13:33 | PCM.OPRPT ---
Problem List (1) Degeneration of intervertebral disc of lumbosacral region Status: Chronic (2) Radiculopathy of lumbosacral region Status: Chronic Report of Operation Date of Procedure: 08/11/18 Pre-Operative Diagnosis: Lumbosacral radiculopathy, lumbosacral degenerative disc disease, lumbosacral spinal stenosis Post-Operative Diagnosis: Lumbosacral radiculopathy, lumbosacral degenerative disc disease, lumbosacral spinal stenosis Surgery/Procedure Performed:: Diagnostic/therapeutic caudal epidural steroid injection Description of Surgical Findings:: PROCEDURE: Diagnostic/therapeutic caudal epidural steroid injection PREOPERATIVE DIAGNOSIS: Lumbosacral radiculopathy, lumbosacral degenerative disc disease, lumbosacral spinal stenosis POSTOPERATIVE DIAGNOSIS: Lumbosacral radiculopathy, lumbosacral degenerative disc disease, lumbosacral spinal stenosis ANESTHESIA: MAC COMPLICATIONS: None BLOOD LOSS: Minimal PROCEDURE IN DETAIL: History and physical today was reviewed. Risks and benefits of the procedure were explained. The patient understood, agreed to our procedure, and informed consent was obtained. IV inserted per routine protocol. The patient was taken to the operating room, placed in a prone position with a pillow positioned underneath the abdomen. The lower back and tailbone area was prepped and draped in a sterile fashion using iodine x3 under fluoroscopy guidance AP view and lateral view the caudal space was identified the skin and subcutaneous tissue and size approximately 3 cc of 1% lidocaine using a 25-gauge regular needle under direct physician fluoroscopy using a 22-gauge 3-1/2 inch spinal needle there is advanced via the skin through the sacral hiatus tip of the needle passed through the sacrococcygeal ligament advanced approximately S4 area after negative aspiration for blood or CSF a total of 3 cc of contrast were injected to confirm correct placement of the needle as well as cephalad spread the spread was followed to approximately L5 area after confirmation of AP as well as lateral view and repeated negative aspiration a total of 15 cc of preservative-free 0.125% Marcaine with 80 mg of Depo-Medrol injected easily. The needles were then removed intact. The patient experienced no signs or symptoms intrathecal, intravascular injection. The patient experienced no paraesthesia. The procedure was completed without any apparent difficult, any complication. The patient appeared to tolerate well. ASSESSMENT AND PLAN: This is a 62-year-old female with lumbosacral radiculopathy, lumbosacral degenerative disc disease, lumbosacral spinal stenosis status post diagnostic/therapeutic caudal epidural steroid injection. The patient will continue her current medications. The patient will follow in approximately 2 weeks reevaluation.
== END 2018-08-11 13:08 | disposition home or self-care (01) ==
LOC: SDC 10:48 → AC 10:58
PROVIDERS: Family Provider Internal Medicine; PCP Internal Medicine; Referring Provider Anesthesiology Pain Medicine; Visit Provider Anesthesiology Pain Medicine
PROC: 3E0S3BZ Introduction of Anesthetic Agent into Epidural Space, Percutaneous Approach (ICD-10-PCS; CPT 62282; principal; 2018-08-11 12:05)
DX: M51.17 Intervertebral disc disorders with radiculopathy, lumbosacral region (principal); M48.07 Spinal stenosis, lumbosacral region; D64.9 Anemia, unspecified; E78.00 Pure hypercholesterolemia, unspecified; J45.909 Unspecified asthma, uncomplicated; K21.9 Gastro-esophageal reflux disease without esophagitis; Z79.899 Other long term (current) drug therapy; Z78.0 Asymptomatic menopausal state; Z85.3 Personal history of malignant neoplasm of breast
CPT/HCPCS: 62323; 64483; 77002; J7120; J3490

== ENCOUNTER → 2018-10-28 09:54 | Outpatient (CLI) | payer MEDICARE, SELFPAY ==
[2018-08-11 11:15] VITALS: BMI 60.5
--- NOTE | 2018-10-28 10:32 | EKG12_ITS ---
Test Reason : ORDERED EKG Blood Pressure : / mmHG Vent. Rate : 059 BPM Atrial Rate : 059 BPM P-R Int : 188 ms QRS Dur : 080 ms QT Int : 442 ms P-R-T Axes : 027 009 043 degrees QTc Int : 437 ms Sinus bradycardia Otherwise normal ECG Confirmed by CHINO VERGARA, JAKY ([id number]), department editor RAMBO ALSTON ([id number]) on 10/29/2018 1:46:45 PM Referred By: Jw Nieto Confirmed By:JAKY MAGANA MD
[2018-10-28 12:38] LABS: Hematocrit 42.1 % (37-47); Hemoglobin 13.1 g/dl (12.0-15.0); Mean Corp Hgb Conc 31.1 g/gl (32-36); Mean Platelet Vol. 11.4 fl (6.2-12.0); Platelet Count 200 K/mm3 (150-450); RBC Distribution Width CV 14.6 % (11.6-14.6); RBC Distribution Width SD 47.1 fl (35.1-43.9); Red Blood Count 4.68 M/mm3 (4.2-5.4); White Blood Count 4.3 K/mm3 (4.4-11.0)
[2018-10-28 12:43] LABS: Scan Indicated on CBC? Y/N NO
[2018-10-28 13:13] LABS: ALB/GLOB Ratio 0.8 RATIO (0.9-2.4); AST(SGOT) 19 U/L (15-37); Alanine Aminotransfer ALT/SGPT 22 U/L (13-56); Albumin, Serum 3.3 g/dL (3.2-5.0); Alkaline Phosphatase 105 U/L (45-117); Anion Gap 7 (5-15); BUN 13 mg/dL (7-18); Calcium,Total 8.9 mg/dL (8.5-10.1); Chloride 106 mmol/L (98-107); Cholesterol 216 mg/dL (200); Creatinine, Serum 0.72 mg/dL (0.55-1.02); EST Glomerular Filtration Rate 87 mL/min (>60); Est Glom Filt Rate - Afr Amer 105 mL/min (>60); Glucose 86 mg/dL (74-106); High Density Lipoprotein 70 mg/dL; Protein, Total 7.3 g/dL (6.4-8.2); Sodium Level 142 mmol/L (136-145); Thyroid Stim Hormone (TSH) 1.29 uIU/mL (0.358-3.74); Triglycerides 94 mg/dL; Very Low Density Lipoprotein 19 mg/dL (5-40)
== END ==
LOC: BIMLAB 09:55 → CVS 10:31
PROVIDERS: Family Provider Internal Medicine; PCP Internal Medicine; Referring Provider Nurse Practitioner Family; Visit Provider Nurse Practitioner Family
DX: R07.9 Chest pain, unspecified (principal); R53.83 Other fatigue; R06.09 Other forms of dyspnea; E66.9 Obesity, unspecified
CPT/HCPCS: 36415; 80053; 80061; 84443; 85027; 93005

== ENCOUNTER → 2019-03-06 11:11 | Outpatient (CLI) | payer MEDICARE, SELFPAY ==
[2019-03-06 10:25] VITALS: BMI 61.2
[2019-03-07 08:44] LABS: Vitamin B12 164 pg/mL (211-911); Vitamin D,25 Hydroxy 29.6 ng/mL (29.95-100.01)
== END ==
PROVIDERS: Family Provider Internal Medicine; PCP Internal Medicine; Visit Provider Internal Medicine
DX: K91.2 Postsurgical malabsorption, not elsewhere classified (principal); E53.8 Deficiency of other specified B group vitamins
CPT/HCPCS: 36415; 82306; 82607

== ENCOUNTER 2019-03-30 10:15 | Day surgery (SDC) | payer MEDICARE, SELFPAY ==
[2019-03-06 10:25] VITALS: BMI 61.2
[2019-03-30 11:11] VITALS: BP 112/79; PULSE 56; RESP 16; TEMP 36.7; O2SAT 96; BMI 61.5
[2019-03-30] MEDS: Lactated Ringers 1,000 ML 100 ML IV (11:28)
--- NOTE | 2019-03-30 11:40 | RAD_ITS ---
PROCEDURE: Fluoroscopy for caudal epidural steroid injection DATE OF EXAMINATION: 03/30/2019 INDICATION: Female, 63 years old. Pain PHYSICIAN: FLUOROSCOPY TIME (if supplied): (0:45) minutes/seconds RADIATION DOSAGE (If Supplied By Facility): CTDIvol = ( 24.2 ) mGy, A caudal epidural steroid injection was performed under the direction of Dr. Uribe. The patient is obese making visualization of the injection site and spine somewhat difficult. 2 images were obtained and images were completed to Dr. Uribe satisfaction. RAD/Fluor Guidance for Spine Inj IMPRESSION: 2 images were obtained during caudal epidural steroid injection. Electronically Signed: Rodriguez Sharp, at 11:38 EDT Tel , Service support ,
[2019-03-30] MEDS: Bupivacaine 0.25% 30 ML Vial (12:04)
[2019-03-30] MEDS: MethylPREDNISolone Acetate 80 MG/ML Vial (12:04)
[2019-03-30 12:20] VITALS: BP 112/79; BP 116/80; PULSE 66; RESP 18; TEMP 36.8; O2SAT 99
[2019-03-30 12:25] VITALS: BP 112/79; BP 120/86; PULSE 70; RESP 18; O2SAT 100
[2019-03-30 12:30] VITALS: BP 112/79; BP 99/75; PULSE 58; RESP 18; O2SAT 100
[2019-03-30 12:35] VITALS: BP 106/85; BP 112/79; RESP 18; TEMP 36.4; O2SAT 100
--- NOTE | 2019-03-30 12:39 | OP.PCM_ITS ---
Report of Operation Date of Procedure: 03/30/19 Description of Surgical Findings:: PREOPERATIVE DIAGNOSIS: Lumbosacral radiculopathy, lumbosacral degenerative disc disease, lumbosacral spinal stenosis POSTOPERATIVE DIAGNOSIS: Lumbar sacral radiculopathy, lumbosacral degenerative disc disease, lumbosacral spinal stenosis PROCEDURE PERFORMED: Caudal epidural steroid injection. ANESTHESIA: MAC. BLOOD LOSS: Minimal. COMPLICATIONS: None. DESCRIPTION OF PROCEDURE: History and physical of today was reviewed. Risks and benefits of the procedure were explained. The patient understood and agreed to proceed. Informed consent was obtained. IV inserted per routine protocol. The patient was taken to the operating room and placed in the prone position with a pillow positioned underneath the abdomen. The lower back and tailbone area was prepped and draped in a sterile fashion using iodine x3. Under f luoroscopy guidance on a lateral view, the caudal space was identified. The skin and subcutaneous tissue was anesthetized with approximately 3 mL of 1% lidocaine using a 25-gauge regular needle. Under direct visualization with fluoroscopy, using a 22-gauge 3-1/2-inch spinal needle, the needle was advanced via the skin through the sacral hiatus. The tip of the needle was passed through the sacrococcygeal ligament and advanced to approximately S4 area. After negative aspiration of blood or CSF, a total of 3 mL of contrast was injected to confirm correct placement of the needle as well as cephalad spread. The spread was followed to approximately L5 area. After confirmation on AP as well as lateral view and repeated negative aspiration, a total of 15 mL of preservative-free 0.125% Marcaine with 80 mg of Depo-Medrol was injected easily. The needle was then removed intact. The patient experienced no sign or symptoms of intrathecal or intravascular injection. The patient experienced no paresthesia. The procedure was completed without any apparent difficulty or any complications. The patient appeared to tolerate it well. ASSESSMENT AND PLAN: This is an 63-year-old female with lumbosacral radiculopathy, lumbosacral degenerative disc disease, lumbosacral spinal stenosis status post caudal epidural steroid injection patient will continue her current medications patient found approximately 2 weeks for reevaluation.
[2019-03-30 12:49] VITALS: BP 112/79
== END 2019-03-30 12:49 | disposition home or self-care (01) ==
LOC: SDC 10:18 → AC 11:51
PROVIDERS: Family Provider Internal Medicine; PCP Internal Medicine; Referring Provider Anesthesiology Pain Medicine; Visit Provider Anesthesiology Pain Medicine
PROC: 3E0S3BZ Introduction of Anesthetic Agent into Epidural Space, Percutaneous Approach (ICD-10-PCS; CPT 62282; principal; 2019-03-30 11:35)
DX: M51.17 Intervertebral disc disorders with radiculopathy, lumbosacral region (principal); M48.07 Spinal stenosis, lumbosacral region; M17.0 Bilateral primary osteoarthritis of knee; E78.00 Pure hypercholesterolemia, unspecified; E07.9 Disorder of thyroid, unspecified; J45.909 Unspecified asthma, uncomplicated; K21.9 Gastro-esophageal reflux disease without esophagitis; F32.9 Major depressive disorder, single episode, unspecified; E66.01 Morbid (severe) obesity due to excess calories; Z68.44 Body mass index [BMI] 60.0-69.9, adult; Z79.891 Long term (current) use of opiate analgesic; Z79.52 Long term (current) use of systemic steroids; Z79.899 Other long term (current) drug therapy; Z78.0 Asymptomatic menopausal state; Z85.3 Personal history of malignant neoplasm of breast
CPT/HCPCS: 62323; 64483; 77003; J7120; J3490

== ENCOUNTER 2019-07-13 08:59 | Day surgery (SDC) | payer MEDICARE, MEDICAID, SELFPAY ==
[2019-07-13 09:28] VITALS: BP 126/83; PULSE 67; RESP 16; TEMP 36.2; O2SAT 100; BMI 61.8
--- NOTE | 2019-07-13 09:39 | PCM.OPRPT ---
Report of Operation Date of Procedure: 07/13/19 Description of Surgical Findings:: PREOPERATIVE DIAGNOSIS: Lumbosacral radiculopathy, lumbosacral degenerative disc disease, lumbosacral spinal stenosis POSTOPERATIVE DIAGNOSIS: Lumbosacral radiculopathy, lumbosacral degenerative disc disease, lumbosacral spinal stenosis PROCEDURE PERFORMED: Caudal epidural steroid injection. ANESTHESIA: MAC. BLOOD LOSS: Minimal. COMPLICATIONS: None. DESCRIPTION OF PROCEDURE: History and physical of today was reviewed. Risks and benefits of the procedure were explained. The patient understood and agreed to proceed. Informed consent was obtained. IV inserted per routine protocol. The patient was taken to the operating room and placed in the prone position with a pillow positioned underneath the abdomen. The lower back and tailbone area was prepped and draped in a sterile fashion using iodine x3. Under fluoroscopy guidance on a lateral view, the caudal space was identified. The skin and subcutaneous tissue was anesthetized with approximately 3 mL of 1% lidocaine using a 25-gauge regular needle. Under direct visualization with fluoroscopy, using a 22-gauge 3-1/2-inch spinal needle, the needle was advanced via the skin through the sacral hiatus. The tip of the needle was passed through the sacrococcygeal ligament and advanced to approximately S4 area. After negative aspiration of blood or CSF, a total of 3 mL of contrast was injected to confirm correct placement of the needle as well as cephalad spread. The spread was followed to approximately L5 area. After confirmation on AP as well as lateral view and repeated negative aspiration, a total of 15 mL of preservative-free 0.125% Marcaine with 80 mg of Depo-Medrol was injected easily. The needle was then removed intact. The patient experienced no sign or symptoms of intrathecal or intravascular injection. The patient experienced no paresthesia. The procedure was completed without any apparent difficulty or any complications. The patient appeared to tolerate it well. ASSESSMENT AND PLAN: This is a 63-year-old female with lumbosacral radiculopathy, lumbosacral degenerative disc disease, lumbosacral spinal stenosis status post caudal epidural steroid injection patient will continue current medications, patient will follow approximately 2 weeks for reevaluation.
[2019-07-13] MEDS: Lactated Ringers 1,000 ML 100 ML IV (09:46)
--- NOTE | 2019-07-13 09:55 | RAD_ITS ---
PROCEDURE: Caudal block. DATE OF EXAMINATION: July 13, 2019 INDICATION: Female, 63 years old. Low back pain. FLUOROSCOPY TIME (if supplied): (36 seconds) minutes/seconds Intraoperative imaging provided for caudal block. RAD/Fluor Guidance for Spine Inj IMPRESSION: Intraoperative imaging provided for caudal block. Electronically Signed: Jann Rosenberg, at 10:14 EST , Service support ,
[2019-07-13] MEDS: MethylPREDNISolone Acetate 80 MG/ML Vial (09:58)
[2019-07-13] MEDS: 0.9% Normal Saline (Pres. free 10 ML Vial (09:59)
[2019-07-13] MEDS: Bupivacaine 0.25% 30 ML Vial (09:59)
[2019-07-13 10:11] VITALS: BP 114/80; BP 126/83; PULSE 64; RESP 16; TEMP 36.2; O2SAT 98
[2019-07-13 10:15] VITALS: BP 119/83; BP 126/83; PULSE 61; RESP 16; O2SAT 100
[2019-07-13 10:20] VITALS: BP 126/83; BP 128/84; PULSE 60; RESP 16; O2SAT 100
[2019-07-13 10:24] VITALS: BP 115/57; BP 126/83; PULSE 74; RESP 16; TEMP 36.6; O2SAT 94
[2019-07-13 10:41] VITALS: BP 126/83
== END 2019-07-13 10:48 | disposition home or self-care (01) ==
LOC: SDC 09:00 → AC 09:02
PROVIDERS: Family Provider Internal Medicine; PCP Internal Medicine; Referring Provider Anesthesiology Pain Medicine; Visit Provider Anesthesiology Pain Medicine
PROC: 3E0S3BZ Introduction of Anesthetic Agent into Epidural Space, Percutaneous Approach (ICD-10-PCS; CPT 62282; principal; 2019-07-13 09:50)
DX: M51.17 Intervertebral disc disorders with radiculopathy, lumbosacral region (principal); M48.07 Spinal stenosis, lumbosacral region; M17.0 Bilateral primary osteoarthritis of knee; D64.9 Anemia, unspecified; K21.9 Gastro-esophageal reflux disease without esophagitis; F32.9 Major depressive disorder, single episode, unspecified; E66.01 Morbid (severe) obesity due to excess calories; Z68.44 Body mass index [BMI] 60.0-69.9, adult; Z79.899 Other long term (current) drug therapy; Z79.891 Long term (current) use of opiate analgesic
CPT/HCPCS: 01992; 62323; 64483; 77003; J7120; J3490

== ENCOUNTER 2019-07-21 10:00 | Outpatient (RCR) | payer MEDICARE, SELFPAY ==
--- NOTE | 2019-07-10 10:53 | HP.PTEVAL_ITS ---
Patient's Visit Information ALONDRA SANCHEZ is a 63 year old F referred to Physical Therapy by LEXUS Mayorga with a diagnosis of Back and Knee Pain. Date of Evaluation: 07/10/19 Physical Therapist: Amy Henning DPT - Visit Plan Frequency: 2x /Week Duration: 4 Weeks Plan: Focus on LE and core s/s - Subjective Findings: Patient reports thats she has a lot of arthritis in her knees and low back. She has had pain for years and sees Dr. Uribe for pain mgmt. She has injections in her knees and back as well as daily pain medications. Last time she had injections was 6 weeks ago in her back. The left knee is worse but they are both bad. The back pain is all the time. Worst: 9/10 Agg: getting up from sitting and movement. Ease: heating pad Best: 8/10. PA feels that its the back thats causing her leg pain. Pain is located in the lower back in the middle and down the left side. No radiating pain. Describes the pain as shooting when she is moving and dully and achy when she is sitting. No reports of loss or change in bowel or bladder. Reports tingling toes bilaterally but worse on the left. Sleep: disturbed- back sleeper. She keeps moving positions due to pain but is not very active. Pain in the knee is a 10/10 They hurt all the time Agg: getting up from sitting Eases: nothing helps Best: 10/10 all the time. She feels like they are bone on bone. Can't do a TKR unless she looses weight- has seen Ortho. Pain is in the medial and lateral joint- no radiating pain- describes as achy. 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 PMHx: breast cancer 2001 Meds: lyrica, cymbalta, tazadine, prilosec.- Stopped taking Oxycodone - Objective Posture: FH, RS, increased kyphosis- pt is obese- can correct but unable to maintain. Gait: lumbering- slow nyasia- decreased stride length with toes turned out and poor heel/toe pattern- SOB with ambulation greater than 100 feet endurance is poor. HR: diminished by 25% reports pain in bilateral knees, TR: able to alternate WNL. SLS: weight shift but unable to SLS without UE A- reports increased pain. Sensation: WNL. Reflex: absent patellar reflex with attempt x 4 bilaterally. ROM: Lumbar: Flexion: fingers to toes, Extn: neutral, SB and rotation: WNL reports discomfort of her sides with rotation and SB bilateral Left>right. Knee: 0-90 degrees bilaterally pain with end range flexion left>right, Ankle: WNL. Strength: Ankle: 5/5, Knee: extn: 4/5 Flexion: 4-/5, Hip: Left: 3+/5 throughout Right: 4/5 throughout. Core: poor. Palpation: tender throughout medial and lateral joint line of both knees and along the spinal process of the lumbar spine. Transfer: uses UE for sitting to supine to bring her legs onto plinth- requires min A to return to sitting from PT. Flex: HS: mild left>right. Special Test: dural signs positive on the left, SLR: postive on left - Goals Goal 1:: Patient will be I with HEP and progression Goal Time Frame: 4-6 Weeks Goal 2:: Patient will ambulate >300 feet with a more normalized gait pattern and no SOB Goal Time Frame: 4-6 Weeks Goal 3:: Patient will demo ability to HR/TR with UE A with no pain x 5 reps Goal Time Frame: 4-6 Weeks Goal 4:: Patient will report 4/10 pain Goal Time Frame: 4-6 Weeks - Rehabilitation Potential Physical Therapy Diagnosis: Patient presents with hypomobility- she has decreased strength and muscular endurance leading to poor posture and increased pain with ADL's. Weight plays an important role in her immobility and increased pain. Rehabilitation Potential: Fair - Anticipated Interventions Patient/Client Instruction: Educate patient on: Benefits of Fitness Program Therapeutic Exercise to Include: Strength training, Endurance training, Balance training, Coordination, Agility training, Body mechanics, Postural training, Fle xibilty training, Gait and locomotor training, Neuromotor development, In an aquatic setting, Passive ROM, Active ROM For the Purpose of:: To improve muscle performance and motor function Thank you for the opportunity to evaluate your patient. For Medicare and Medicare HMO plans, please review the plan of care and approve it. It will need to be FAXED BACK to us at [phone] for Medicare purposes. For Medicare only, by signing this I certify the plan of care. Please let me know if there are questions or concerns regarding this plan of care. Physician Signature: Date:
--- NOTE | 2019-11-03 11:29 | HP.PT.NRP ---
ALONDRA SANCHEZ was seen in my office for initial evaluation on 07/10/19. The following Plan of Care was established for this patient: Initial Frequency: 2x /Week Initial Duration: 4 Weeks Patient/Client Instruction: Educate patient on: Benefits of Fitness Program Therapeutic Exercise to Include: Strength training, Endurance training, Balance training, Coordination, Agility training, Body mechanics, Postural training, Flexibilty training, Gait and locomotor training, Neuromotor development, In an aquatic setting, Passive ROM, Active ROM For the Purpose of:: To improve muscle performance and motor function This patient was last seen in our office . Pertinent comments regarding their Physical therapy will appear below: Patient has not attended physical therapy in over 8 weeks- appropriate for d/c and return to MD as appropriate. At this point I will be discontinuing this patient from physical therapy. I would be happy to see this patient again in the future if found appropriate by the physician. Thank you! Amy Henning DPT
== END 2019-07-21 19:00 | disposition home or self-care (01) ==
LOC: PT 10:00
PROVIDERS: Family Provider Internal Medicine; PCP Internal Medicine; Referring Provider Nurse Practitioner Family; Visit Provider Nurse Practitioner Family
DX: M17.0 Bilateral primary osteoarthritis of knee (principal); M51.17 Intervertebral disc disorders with radiculopathy, lumbosacral region; M47.27 Other spondylosis with radiculopathy, lumbosacral region
CPT/HCPCS: 97113; 97162

== ENCOUNTER → 2019-08-11 10:49 | Outpatient (CLI) | payer MEDICARE, SELFPAY ==
[2019-08-11 10:09] VITALS: BMI 61.8
[2019-08-11 12:26] LABS: Absolute Lymphocyte Count 2.03 X10^3/uL (0.83-4.51); Basophil# 0.04 X10^3/uL; Basophil% 0.9 % (0-1); Eosinophil# 0.13 X10^3/uL; Eosinophils% 2.8 % (0-5); Hematocrit 43.9 % (37-47); Hemoglobin 13.9 g/dL (12.0-15.0); Lymphocyte # 2.03 X10^3/ul (4.0); Lymphocyte % 43.8 % (19-41); Mean Corp Hgb Conc 31.7 g/dL (32-36); Mean Corpuscular Hgb 30.4 pg (27.0-32.0); Mean Corpuscular Volume 96.1 fL (81-99); Mean Platelet Vol. 11.1 fl (6.2-12.0); Monocyte# 0.38 X10^3/uL; Monocyte% 8.2 % (0-10); NRBC Flagged by Analyzer 0 % (0-5); Neutrophil # 2.04 X10^3/uL (2.7-7.7); Neutrophil % 44.1 % (47-70); Platelet Count 196 K/mm3 (150-450); RBC Distribution Width CV 13.8 % (11.6-14.6); RBC Distribution Width SD 49.2 fl (35.1-43.9); Red Blood Count 4.57 M/mm3 (4.2-5.4); White Blood Count 4.6 K/mm3 (4.4-11.0)
[2019-08-11 12:40] LABS: ALB/GLOB Ratio 0.7 RATIO (0.9-2.4); AST(SGOT) 23 U/L (15-37); Alanine Aminotransfer ALT/SGPT 33 U/L (13-56); Albumin, Serum 3.1 g/dL (3.2-5.0); Alkaline Phosphatase 100 U/L (45-117); Anion Gap 5 (5-15); BUN 11 mg/dL (7-18); BUN/Creat Ratio 11.9 RATIO (10-20); Calcium,Total 9.1 mg/dL (8.5-10.1); Chloride 106 mmol/L (98-107); Cholesterol 216 mg/dL (200); Creatinine, Serum 0.92 mg/dL (0.55-1.02); EST Glomerular Filtration Rate 65 mL/min (>60); Est Glom Filt Rate - Afr Amer 79 mL/min (>60); Globulin 4.3 g/dL (2.2-4.2); Glucose 87 mg/dL (74-106); High Density Lipoprotein 77 mg/dL; Potassium 3.7 mmol/L (3.5-5.1); Protein, Total 7.4 g/dL (6.4-8.2); Sodium Level 142 mmol/L (136-145); Triglycerides 92 mg/dL; Very Low Density Lipoprotein 18 mg/dL (5-40)
[2019-08-11 12:50] LABS: Vitamin B12 217 pg/mL (211-911); Vitamin D,25 Hydroxy 42.6 ng/mL (29.95-100.01)
== END ==
PROVIDERS: PCP Internal Medicine; Visit Provider Internal Medicine
DX: F32.9 Major depressive disorder, single episode, unspecified (principal); K21.9 Gastro-esophageal reflux disease without esophagitis; K91.2 Postsurgical malabsorption, not elsewhere classified; E66.01 Morbid (severe) obesity due to excess calories; Z68.44 Body mass index [BMI] 60.0-69.9, adult
CPT/HCPCS: 36415; 80053; 80061; 82306; 82607; 85025

== ENCOUNTER 2019-12-28 10:19 | Day surgery (SDC) | payer MEDICARE, MEDICAID, SELFPAY ==
[2019-10-13 09:56] VITALS: BMI 61.8
[2019-12-28] VITALS (8 sets, daily range): BP systolic 108–114; BP diastolic 61–76; PULSE 52–71; RESP 16; TEMP 36.3–36.6; O2SAT 98–100; BMI 62.4
[2019-12-28] MEDS: Lactated Ringers 1,000 ML 100 ML IV (11:02)
[2019-12-28] MEDS: Bupivacaine 0.25% 30 ML Vial (11:40)
[2019-12-28] MEDS: MethylPREDNISolone Acetate 80 MG/ML Vial (11:40)
--- NOTE | 2019-12-28 11:40 | RAD_ITS ---
STUDY: X-RAY - LEFT KNEE REASON FOR EXAM: Female, 64 years old. LEFT KNEE STEROID INJECTION TECHNIQUE: Limited intraoperative view(s) of the knee. COMPARISON: None. FINDINGS: Single limited intraoperative view was performed as the patient has undergone steroid injection into the left knee. RAD/Fluoro Guided Needle Placement IMPRESSION: Left knee injection, no complications, limited study Electronically Signed: Bertram Eastman MD at 12:46 EDT , Service support ,
--- NOTE | 2019-12-28 11:58 | OP.PCM_ITS ---
Report of Operation Date of Procedure: 12/28/19 Description of Surgical Findings:: PREOPERATIVE DIAGNOSIS: Osteoarthritis of the left knee. POSTOPERATIVE DIAGNOSIS: Osteoarthritis of the left knee. PROCEDURE PERFORMED: left knee intraarticular steroid injection under fluoroscopic guidance. ANESTHESIA:Local. BLOOD LOSS: Minimal. COMPLICATIONS: None. DESCRIPTION OF PROCEDURE: History and physical of today was reviewed. Risks and benefits of the procedure were explained. The patient understood and agreed to proceed. Informed consent was obtained. IV inserted per routine protocol. The patient was taken to the operating room and placed in the supine position. The left knee area was prepped and draped in a sterile fashion using iodine x3. Under fluoroscopy guidance on AP view, the left knee joint was visualized. The skin and subcutaneous tissue was anesthetized with approximately 3 mL of 1% lidocaine using a 25-gauge regular needle at the medial aspect of the left knee. Under direct visualization with fluoroscopy, on AP view, using a 22-gauge 3-1/2-inch spinal needle, the needle was advanced via the skin. The tip of the needle was maneuvered and directed towards the intraarticular space at the med ial compartment of the left knee. Once the tip of the needle was at the vicinity of the knee, after negative aspiration for blood, positive aspiration of the synovial fluid, a total of 1 mL of contrast was injected to confirm correct placement of the needle as well as intraarticular spread medial as well as lateral compartment. After confirmation on AP as well as lateral view and repeated negative aspiration, a total of 5 m of preservative-free 0.25% Marcaine with 40 mg of Depo-Medrol was injected easily. The needle was then removed intact. The patient experienced no sign or symptoms of intravascular injection. The patient experienced no paresthesia. The procedure was completed without any apparent difficulty or any complications. The patient appeared to tolerate it well. Assessment and plan: This is a 64-year-old female with osteoarthritis of the left knee status post left knee intra-articular steroid injection under fluoroscopic guidance, patient will continue current medications, patient will follow approximately 2 weeks for reevaluation.
== END 2019-12-28 12:49 | disposition home or self-care (01) ==
LOC: SDC 10:20 → AC 10:22
PROVIDERS: PCP Internal Medicine; Referring Provider Anesthesiology Pain Medicine; Visit Provider Anesthesiology Pain Medicine
PROC: 3E0U3GC Introduction of Other Therapeutic Substance into Joints, Percutaneous Approach (ICD-10-PCS; CPT 20610; principal; 2019-12-28 11:35)
DX: M17.12 Unilateral primary osteoarthritis, left knee (principal); E78.00 Pure hypercholesterolemia, unspecified; K21.9 Gastro-esophageal reflux disease without esophagitis; F32.9 Major depressive disorder, single episode, unspecified; F17.200 Nicotine dependence, unspecified, uncomplicated
CPT/HCPCS: 01991; 20610; 76000; 77002; J7120

== ENCOUNTER → 2020-03-31 11:52 | Outpatient (CLI) | payer MEDICARE, MEDICAID, SELFPAY ==
[2020-03-31 11:10] VITALS: BMI 62.3
--- NOTE | 2020-03-31 11:54 | RAD_ITS ---
STUDY: X-RAY - RIGHT HAND REASON FOR EXAM: Female, 64 years old. FALL, PT CAUGHT HERSELF WITH HER HAND, PAIN TECHNIQUE: 3 view(s) of the hand. COMPARISON: None. FINDINGS: Normal radiocarpal articulation. Normal distal radioulnar joint. Normal visualized carpal bones. Normal carpal articulations There is degenerative arthrosis of the carpometacarpal (CMC) articulation of the thumb. Normal second through fifth carpometacarpal joints. Normal metacarpi. There is degenerative arthrosis of the metacarpophalangeal (MCP) joints. There is degenerative arthrosis of the interphalangeal joint of the thumb with articular joint space narrowing. Normal proximal and distal phalanges of the thumb. Normal metacarpophalangeal joints of the second through fifth fingers. There is diffuse articular joint space narrowing of the proximal and distal interphalangeal joints of the second through fifth fingers, but without erosive changes or periarticular soft tissue swelling. Normal phalanges of the second through fifth fingers. The soft tissue structures are unremarkable. RAD/Hand Min 3 Views IMPRESSION: Mild diffuse degenerative changes of the right hand and wrist. There is no evidence of fracture or dislocation. Electronically Signed: Jere Bowman MD at 16:12 EDT , Service support ,
--- NOTE | 2020-03-31 11:54 | RAD_ITS ---
STUDY: X-RAY - RIGHT WRIST REASON FOR EXAM: Female, 64 years old. FALL, PT CAUGHT HERSELF WITH HER HAND, PAIN TECHNIQUE: 3 view(s) of the wrist were obtained. COMPARISON: None. FINDINGS: Normal visualized distal radius and ulna. Normal radiocarpal articulation. Normal distal radioulnar articulation. Normal carpal bones. Normal carpal articulations. There is degenerative arthrosis of the carpometacarpal articulation of the thumb. Normal second through fifth carpometacarpal articulations. Normal visualized metacarpal bones. The soft tissue structures are unremarkable. RAD/Wrist min 3 Views IMPRESSION: Mild degenerative changes of the first metacarpal greater multangular joint and first metacarpophalangeal joint. There is no evidence of fracture or dislocation. Electronically Signed: Jere Bowman MD at 16:13 EDT , Service support ,
== END ==
PROVIDERS: PCP Internal Medicine; Referring Provider Nurse Practitioner Family; Visit Provider Nurse Practitioner Family
DX: S69.91XA Unspecified injury of right wrist, hand and finger(s), initial encounter (principal); X58.XXXA Exposure to other specified factors, initial encounter; Y93.9 Activity, unspecified; Y92.9 Unspecified place or not applicable; Y99.9 Unspecified external cause status
CPT/HCPCS: 73110; 73130

== ENCOUNTER 2020-04-11 09:05 | Day surgery (SDC) | payer MEDICARE, MEDICAID, SELFPAY ==
[2020-03-31 11:10] VITALS: BMI 62.3
[2020-04-11] VITALS (8 sets, daily range): BP systolic 105–122; BP diastolic 68–82; PULSE 55–64; RESP 16; TEMP 36.1–36.7; O2SAT 93–100; BMI 62.6
[2020-04-11] MEDS: Lactated Ringers 1,000 ML 100 ML IV (09:40)
--- NOTE | 2020-04-11 09:57 | RAD_ITS ---
STUDY: X-RAY - BILATERAL KNEES REASON FOR EXAM: Female, 64 years old. BILATERAL KNEE INJECTIONS IN OR TECHNIQUE: 1 view(s) of the right knee were obtained. 1 view(s) of the left knee were obtained. . COMPARISON: None. FINDINGS - RIGHT KNEE: A single fluoroscopic view of the right knee was obtained during injection in the operating room.. FINDING - LEFT KNEE: A single fluoroscopic view of the left knee was obtained during injection in the operating room.. RAD/Fluoro Guided Needle Placement IMPRESSION: Fluoroscopy during the injection. Electronically Signed: Mauricio Chow MD at 8:13 EDT Tel , Service support ,
[2020-04-11] MEDS: Bupivacaine 0.25% 30 ML Vial (10:06)
[2020-04-11] MEDS: MethylPREDNISolone Acetate 80 MG/ML Vial (10:06)
--- NOTE | 2020-04-11 16:42 | OP.PCM_ITS ---
Report of Operation Date of Procedure: 04/11/20 Description of Surgical Findings:: PREOPERATIVE DIAGNOSIS: Osteoarthritis of the bilateral knee. POSTOPERATIVE DIAGNOSIS: Osteoarthritis of the lateral knee. PROCEDURE PERFORMED: Bilateral knee intraarticular steroid injection under fluoroscopic guidance. ANESTHESIA:Local. BLOOD LOSS: Minimal. COMPLICATIONS: None. DESCRIPTION OF PROCEDURE: History and physical of today was reviewed. Risks and benefits of the procedure were explained. The patient understood and agreed to proceed. Informed consent was obtained. IV inserted per routine protocol. The patient was taken to the operating room and placed in the supine position. The bilateral knee area was prepped and draped in a sterile fashion using iodine x3. Under fluoroscopy guidance on AP view, the bilateral knee joint was visualized. The skin and subcutaneous tissue was anesthetized with approximately 5 mL of 1% lidocaine using a 25-gauge regular needle at the medial aspect of the bilateral knee. Under direct visualization with fluoroscopy, on AP view, using a 22-gauge 3-1/2-inch spinal needle, the needle was advanced via the skin. The tip of the needle was maneuvered and directed towards the intra articular space at the medial compartment of the lateral knee. Once the tip of the needle was at the vicinity of the knee, after negative aspiration for blood, positive aspiration of the synovial fluid, a total of 1 mL of contrast was injected to confirm correct placement of the needle as well as intraarticular spread medial as well as lateral compartment. After confirmation on AP as well as lateral view and repeated negative aspiration, a total of 10 mL of preservative-free 0.25% Marcaine with 80 mg of Depo-Medrol was injected easily between both knees. The needle was then removed intact. The patient experienced no sign or symptoms of intravascular injection. The patient experienced no paresthesia. The procedure was completed without any apparent difficulty or any complications. The patient appeared to tolerate it well. Assessment and plan: This is a 64-year-old female with osteoarthritis of bilateral knees status post bilateral knee intra-articular steroid injection under fluoroscopic guidance, patient will continue her current medications, patient will follow in approximately 2 weeks for reevaluation.
== END 2020-04-11 11:31 | disposition home or self-care (01) ==
LOC: SDC 09:06 → AC 09:07
PROVIDERS: PCP Internal Medicine; Referring Provider Anesthesiology Pain Medicine; Visit Provider Anesthesiology Pain Medicine
PROC: 3E0U3GC Introduction of Other Therapeutic Substance into Joints, Percutaneous Approach (ICD-10-PCS; CPT 20610; principal; 2020-04-11 09:55)
DX: M17.0 Bilateral primary osteoarthritis of knee (principal); E78.00 Pure hypercholesterolemia, unspecified; K21.9 Gastro-esophageal reflux disease without esophagitis; F32.9 Major depressive disorder, single episode, unspecified
CPT/HCPCS: 20610; 76000; 77002; J7120

== ENCOUNTER → 2020-05-18 13:38 | Outpatient (CLI) | payer MEDICARE, MEDICAID, SELFPAY ==
[2020-05-18 08:26] VITALS: BMI 62.6
--- NOTE | 2020-05-18 13:39 | VDLE_ITS ---
Reason For Study: SWELLING Procedure LEFT Exam performed in department. GSV is normal. Technically difficult due too body habitus. CFV is compressible, spontaneous, phasic, A preliminary report was called and/or faxed competent, and demonstrates normal to Dr Ham. augmentation. FV is compressible, spontaneous, phasic, competent and demonstrates normal augmentation. POP V is compressible, spontaneous, phasic, competent and demonstrates normal augmentation. T/P Trunk is compressible. PTV is compressible. LT PerV is compressible. Proximal Kapil V were not well visualized. Interpretation Summary There is no evidence of left lower extremity deep vein thrombosis. Left great saphenous vein appears patent and compressible segmentally. Poorly seen left peroneal vein proximally Difficult exam secondary to body habitus Ordering Physician: Catrachita Ham Referring Physician: Catrachita Ham Performed By: Amanda Breen, KUNAL, RVT
== END ==
PROVIDERS: PCP Internal Medicine; Referring Provider Internal Medicine; Visit Provider Internal Medicine
DX: M79.89 Other specified soft tissue disorders (principal)
CPT/HCPCS: 93971

== ENCOUNTER → 2020-05-30 11:18 | Outpatient (CLI) | payer MEDICARE, MEDICAID, SELFPAY ==
[2020-05-18 08:26] VITALS: BMI 62.6
[2020-05-30 12:50] LABS: Hematocrit 45.3 % (37-47); Hemoglobin 13.8 g/dL (12.0-15.0); Mean Corp Hgb Conc 30.5 g/dL (32-36); Mean Corpuscular Volume 95.2 fL (81-99); Platelet Count 192 K/mm3 (150-450); RBC Distribution Width CV 13.1 % (11.6-14.6); RBC Distribution Width SD 46.5 fl (35.1-43.9); Red Blood Count 4.76 M/mm3 (4.2-5.4); White Blood Count 4.6 K/mm3 (4.4-11.0)
[2020-05-30 13:10] LABS: Vitamin B12 251 pg/mL (211-911); Vitamin D,25 Hydroxy 35.7 ng/mL
[2020-05-30 13:27] LABS: ALB/GLOB Ratio 0.9 RATIO (0.9-2.4); AST(SGOT) 17 U/L (15-37); Alanine Aminotransfer ALT/SGPT 25 U/L (13-56); Albumin, Serum 3.4 g/dL (3.2-5.0); Alkaline Phosphatase 112 U/L (45-117); Anion Gap 3 (5-15); BUN 11 mg/dL (7-18); BUN/Creat Ratio 12.9 RATIO (10-20); Calcium,Total 9.2 mg/dL (8.5-10.1); Chloride 107 mmol/L (98-107); Cholesterol 241 mg/dL (200); Creatinine, Serum 0.85 mg/dL (0.55-1.02); EST Glomerular Filtration Rate 71 mL/min (>60); Est Glom Filt Rate - Afr Amer 86 mL/min (>60); Ferritin 17 ng/mL (8-252); Globulin 3.9 g/dL (2.2-4.2); Glucose 91 mg/dL (74-106); High Density Lipoprotein 75 mg/dL; Iron 108 ug/dL (50-170); Potassium 4.1 mmol/L (3.5-5.1); Protein, Total 7.3 g/dL (6.4-8.2); Sodium Level 142 mmol/L (136-145); Triglycerides 114 mg/dL; Very Low Density Lipoprotein 23 mg/dL (5-40)
[2020-06-03 12:08] LABS: Vitamin B1, Thiamine 87.6 nmol/L (66.5-200.0)
[2020-06-04 13:47] LABS: Zinc, Plasma or Serum 101 ug/dL (56-134)
== END ==
PROVIDERS: PCP Internal Medicine
DX: R10.84 Generalized abdominal pain (principal); E61.7 Deficiency of multiple nutrient elements; K90.89 Other intestinal malabsorption; E66.01 Morbid (severe) obesity due to excess calories; Z68.44 Body mass index [BMI] 60.0-69.9, adult
CPT/HCPCS: 36415; 80053; 80061; 82306; 82607; 82728; 82746; 83540; 83735; 84425; 84630; 85027

== ENCOUNTER 2020-05-30 11:29 | Day surgery (SDC) | payer MEDICARE, MEDICAID, SELFPAY ==
[2020-04-11 09:34] VITALS: BMI 62.6
[2020-05-18 08:26] VITALS: BMI 62.6
[2020-05-30] VITALS (7 sets, daily range): BP systolic 119–143; BP diastolic 83–94; PULSE 65–76; RESP 16–18; TEMP 36.3–37.2; O2SAT 94–100; BMI 63.6
[2020-05-30] MEDS: Lactated Ringers 1,000 ML 100 ML IV (12:43)
[2020-05-30] MEDS: 0.9% Normal Saline (Pres. free 10 ML Vial (13:41)
[2020-05-30] MEDS: Bupivacaine 0.25% 30 ML Vial (13:42)
[2020-05-30] MEDS: Lidocaine 1% (5 ml sdv) 5 ML Vial (13:42)
--- NOTE | 2020-05-30 13:52 | PCM.OPRPT ---
Report of Operation Date of Procedure: 05/30/20 Description of Surgical Findings:: PREOPERATIVE DIAGNOSIS: Lumbosacral radiculopathy, lumbosacral degenerative disc disease, lumbosacral spinal stenosis POSTOPERATIVE DIAGNOSIS: Lumbosacral radiculopathy, lumbosacral degenerative disc disease, lumbosacral spinal stenosis PROCEDURE PERFORMED: Caudal epidural steroid injection. ANESTHESIA: MAC. BLOOD LOSS: Minimal. COMPLICATIONS: None. DESCRIPTION OF PROCEDURE: History and physical of today was reviewed. Risks and benefits of the procedure were explained. The patient understood and agreed to proceed. Informed consent was obtained. IV inserted per routine protocol. The patient was taken to the operating room and placed in the prone position with a pillow positioned underneath the abdomen. The lower back and tailbone area was prepped and draped in a sterile fashion using iodine x3. Under fluoroscopy guidance on a lateral view, the caudal space was identified. The skin and subcutaneous tissue was anesthetized with approximately 3 mL of 1% lidocaine using a 25-gauge regular needle. Under direct visualization with fluoroscopy, using a 22-gauge 3-1/2-inch spinal needle, the needle was advanced via the skin through the sacral hiatus. The tip of the needle was passed through the sacrococcygeal ligament and advanced to approximately S4 area. After negative aspiration of blood or CSF, a total of 3 mL of contrast was injected to confirm correct placement of the needle as well as cephalad spread. The spread was followed to approximately L5 area. After confirmation on AP as well as lateral view and repeated negative aspiration, a total of 15 mL of preservative-free 0.125% Marcaine with 80 mg of Depo-Medrol was injected easily. The needle was then removed intact. The patient experienced no sign or symptoms of intrathecal or intravascular injection. The patient experienced no paresthesia. The procedure was completed without any apparent difficulty or any complications. The patient appeared to tolerate it well. ASSESSMENT AND PLAN: This is a 64-year-old female with lumbosacral radiculopathy, lumbosacral degenerative disc disease, lumbosacral spinal stenosis status post caudal epidural steroid injection patient will continue her current medications, patient will follow in approximately 2 weeks for reevaluation.
== END 2020-05-30 14:33 | disposition home or self-care (01) ==
LOC: SDC 11:29 → AC 12:03
PROVIDERS: PCP Internal Medicine; Referring Provider Anesthesiology Pain Medicine; Visit Provider Anesthesiology Pain Medicine
PROC: 3E0S3BZ Introduction of Anesthetic Agent into Epidural Space, Percutaneous Approach (ICD-10-PCS; CPT 62282; principal; 2020-05-30 12:35)
DX: M51.17 Intervertebral disc disorders with radiculopathy, lumbosacral region (principal); M48.07 Spinal stenosis, lumbosacral region; D64.9 Anemia, unspecified; K21.9 Gastro-esophageal reflux disease without esophagitis; F32.9 Major depressive disorder, single episode, unspecified; E66.01 Morbid (severe) obesity due to excess calories; Z68.44 Body mass index [BMI] 60.0-69.9, adult; Z79.891 Long term (current) use of opiate analgesic; Z79.899 Other long term (current) drug therapy; R10.84 Generalized abdominal pain; E61.7 Deficiency of multiple nutrient elements; K90.89 Other intestinal malabsorption
CPT/HCPCS: 62323; 36415; 64483; 77003; 80053; 80061; 82306; 82607; 82728; 82746; 83540; 83735; 84425; 84630; 85027; J7120; J3490

== ENCOUNTER → 2020-08-18 10:19 | Outpatient (CLI) | payer MEDICARE, MEDICAID, SELFPAY ==
[2020-07-13 09:57] VITALS: BMI 65.5
[2020-08-17 09:57] VITALS: BMI 63.8
--- NOTE | 2020-08-18 10:27 | MRI_ITS ---
STUDY: MRI LEFT KNEE REASON FOR EXAM: Left knee pain. TECHNIQUE: Standardized fat and water weighted pulse sequences were obtained in all 3 orthogonal planes. COMPARISON: Fluoroscopic image 05/27/2017. FINDINGS: Although there is image degradation secondary to patient motion, there is still significant diagnostically useful information available from this examination. There is tear/degeneration of the posterior horn of the medial meniscus (proton-density sagittal images 12-18). There is arthrosis of the medial femorotibial compartment with small marginal osteophytes and partial-thickness chondral loss (T2 sagittal image 8). Normal medial femoral condyle and tibial plateau. Normal medial collateral ligamentous complex (MCL). Normal distal semimembranosus, gracilis and semitendinosus tendons. There is diffuse tear/degeneration of the lateral meniscus (proton-density sagittal images 31-37). There is peripheral subluxation of the lateral meniscus. There is arthrosis of the lateral femorotibial compartment with marginal osteophytes and chondral loss (T2 sagittal image 18). There is subchondral bone edema of the lateral femoral condyle and tibial plateau (T2 sagittal images 17-20), a stress phenomenon. Normal proximal tibiofibular articulation. Normal lateral collateral (fibular) ligament. Normal popliteus tendon. Normal biceps femoris tendon. Normal anterior cruciate ligament (ACL). Normal posterior cruciate ligament (PCL). Normal congruent patellofemoral articulation. There is arthrosis of the patellofemoral compartment with marginal osteophytes and partial-thickness chondral loss (T2 sagittal image 16). Normal medial and lateral patellar retinaculum. Normal visualized quadriceps tendon. Normal patellar tendon. Normal Hoffa''s fat pad. There is a moderately large joint effusion with synovitis (T2 axial images 10-12). There is an intra-articular body anterior to the anterior horn of the lateral meniscus (T2 axial image 17) measuring 0.8 cm in transverse dimension. There is a small popliteal cyst (T2 sagittal images 7-9). There is edema in the subcutis adipose space. There is a small enchondroma in the distal femoral metaphysis (T2 coronal image 19) measuring 0.5 cm in transverse dimension. MRI/Lower Ext Joint Only (Routine) IMPRESSION: Tear/degeneration of the medial meniscus. Tear/degeneration of the lateral meniscus. Tricompartmental arthrosis. Subchondral bone edema of the lateral femoral condyle and lateral tibial plateau, a stress phenomenon. Intra-articular body. Joint effusion with synovitis. Small popliteal cyst. Small enchondroma in the distal femur. Electronically Signed: David Christensen MD at 12:34 EST Tel , Service support ,
== END ==
PROVIDERS: PCP Internal Medicine; Referring Provider Nurse Practitioner Family; Visit Provider Nurse Practitioner Family
DX: M17.12 Unilateral primary osteoarthritis, left knee (principal); M71.22 Synovial cyst of popliteal space [Baker], left knee; D16.22 Benign neoplasm of long bones of left lower limb
CPT/HCPCS: 73721

== ENCOUNTER → 2021-03-14 | Outpatient (CLI) | payer MEDICARE, MEDICAID, SELFPAY | END | disposition home or self-care (01) | LOC: LABSPEC 10:19 | PROVIDERS: Referring Provider Physician Assistant Surgical; Visit Provider Physician Assistant Surgical | DX: J02.9 Acute pharyngitis, unspecified (principal) | CPT/HCPCS: 87635; U0005; U0003 ==

== ENCOUNTER 2021-04-02 09:04 | Emergency (ER) | payer OTHER, MEDICARE, MEDICAID, SELFPAY ==
[2021-04-02 09:05] VITALS: BP 145/78; PULSE 77; RESP 15; TEMP 36.3; O2SAT 98; BMI 61.9
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
[2021-04-02 10:43] VITALS: BP 140/71; PULSE 71
== END 2021-04-02 10:43 | disposition home or self-care (01) ==
LOC: ED 10:07
PROVIDERS: Emergency Provider Emergency Medicine; PCP Internal Medicine
DX: S16.1XXA Strain of muscle, fascia and tendon at neck level, initial encounter (principal); V89.2XXA Person injured in unspecified motor-vehicle accident, traffic, initial encounter; Y93.89 Activity, other specified; Y92.9 Unspecified place or not applicable; Y99.9 Unspecified external cause status; D64.9 Anemia, unspecified; K21.9 Gastro-esophageal reflux disease without esophagitis; M19.90 Unspecified osteoarthritis, unspecified site; Z79.899 Other long term (current) drug therapy
CPT/HCPCS: 99282

== ENCOUNTER → 2021-06-07 10:33 | Outpatient (CLI) | payer MEDICARE, MEDICAID, SELFPAY ==
[2021-06-07 10:36] LABS: Bacteria 0 SEEN /hpf (None Seen); Mucous, Urine 0 SEEN /hpf (<or=2+); Red Blood Cells-Urine 0 SEEN /hpf (0-5); White Blood Cells 0 SEEN /hpf (0-5)
[2021-06-07 12:08] LABS: Color, Urine Yellow (Yellow); Glucose, Dipstick Normal (Normal); Ketone-Dipstick Negative (Negative); Leukocyte Esterase-Dipstick Negative /ul (Negative); Nitrite-Dipstick Negative (Negative); Occult Blood-Urine Negative /ul (Negative); Protein-Dipstick Negative (Negative); Specific Gravity, Urine 1.015 (1.002-1.030); Urine Bilirubin Dipstick Negative (Negative); Urine Clarity Sl. Cloudy (Clear); Urine Urobilinogen Normal (Normal)
[2021-06-07 12:25] LABS: Squamous Epithelial Cells - UA 0-5 SEEN /hpf (5-10)
== END ==
PROVIDERS: PCP Internal Medicine; Visit Provider Internal Medicine
DX: R35.0 Frequency of micturition (principal)
CPT/HCPCS: 81001; 87086; 87088

== ENCOUNTER → 2021-06-09 09:30 | Outpatient (CLI) | payer MEDICARE, MEDICAID, SELFPAY ==
--- NOTE | 2021-06-09 09:32 | RAD_ITS ---
HISTORY: Cervical radiculopathy. TECHNIQUE: XR Spine Cervical 4 or 5 Views. Number of images including paperwork: 5. COMPARISON: None. FINDINGS: VERTEBRAE: No acute fracture identified. ALIGNMENT: No significant anterior or posterior subluxation. INTERVERTEBRAL DISCS: Degenerative endplate changes with very mild intervertebral disc space narrowing at C3-4, C4-5, and C5-6 with anterior osteophytes. Very mild bilateral foraminal narrowing at C3-4. SOFT TISSUES: No prevertebral soft tissue thickening. RAD/Cerv Spine 4 or 5 Views IMPRESSION: No acute fracture or dislocation identified in the cervical spine. Mild degenerative changes. at 1018 Reported and signed by: Jackelyn Field MD Electronically Signed: Jackelyn Field MD at 10:17 EST Tel , Service support ,
--- NOTE | 2021-06-09 09:32 | RAD_ITS ---
HISTORY: Right shoulder pain. TECHNIQUE: XR Shoulder Min 2 Views. Number of images including paperwork: 4. COMPARISON: None. FINDINGS: OSSEOUS STRUCTURES: No acute fracture identified. Mineralization unremarkable. JOINT SPACES: No glenohumeral dislocation or acromioclavicular subluxation. Mild degenerative changes. SOFT TISSUES: Visualized upper lung clear. RAD/Shoulder min 2 Views IMPRESSION: No acute fracture or dislocation identified in the right shoulder. Mild osteoarthritis. at 1019 Reported and signed by: Jackelyn Field MD Electronically Signed: Jackelyn Field MD at 10:18 EST Tel , Service support ,
== END ==
PROVIDERS: PCP Internal Medicine; Visit Provider Internal Medicine
DX: M54.12 Radiculopathy, cervical region (principal); M19.011 Primary osteoarthritis, right shoulder
CPT/HCPCS: 72050; 73030

== ENCOUNTER 2021-07-26 08:56 | Outpatient (RCR) | payer MEDICARE, MEDICAID, SELFPAY ==
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
--- NOTE | 2021-12-08 12:37 | HP.PTDCNRP_ITS ---
ALONDRA SANCHEZ was seen in my office for initial evaluation on 07/26/21. The following Plan of Care was established for this patient: Initial Frequency: 2-3x /Week Initial Duration: 4-6 Weeks Patient/Client Instruction: Educate patient on: Condition, Plan of Care For the Purpose of:: To improve self management Therapeutic Exercise to Include: Strength training, Endurance training, Body mechanics, Flexibilty training, Passive ROM, Active ROM, Scapular Stre ngth/Stabilization For the Purpose of:: To decrease pain, To increase ROM, To improve muscle performance and motor function Manual Therapy Techniques to Include: Soft tissue mobilization For the Purpose of:: To decrease pain, To increase ROM This patient was last seen in our office . Pertinent comments regarding their Physical therapy will appear below: Pt was treated for 1 PT visit for R shoulder pain through the date of 07/26/21. Pt has not returned through todays date and is discontinued at this time At this point I will be discontinuing this patient from physical therapy. I would be happy to see this patient again in the future if found appropriate by the physician. Thank you! Joss Solorzano, PT, ATC Balance/Gait/Functional tests - Balance/Special Test Scores Quick DASH Score: 63.6303
== END 2021-07-26 19:00 | disposition home or self-care (01) ==
LOC: PT 08:56
PROVIDERS: PCP Internal Medicine; Referring Provider Internal Medicine; Visit Provider Internal Medicine
DX: M25.511 Pain in right shoulder (principal); G89.29 Other chronic pain; M54.12 Radiculopathy, cervical region
CPT/HCPCS: 97161

== ENCOUNTER 2021-07-31 08:11 | Day surgery (SDC) | payer MEDICARE, MEDICAID, SELFPAY ==
[2021-07-31 08:32] VITALS: BP 115/72; PULSE 72; RESP 16; TEMP 36.1; O2SAT 100; BMI 61.2
[2021-07-31] MEDS: Lactated Ringers 1,000 ML 15 ML IV (08:36)
--- NOTE | 2021-07-31 09:45 | RAD_ITS ---
PROCEDURE: Left knee injection. DATE OF EXAMINATION: 07/31/2021. INDICATION: Female, 65 years old. Knee pain. FLUOROSCOPY TIME (if supplied): (4 seconds) minutes/seconds. One image was obtained. RAD/Fluoro Guided Needle Placement IMPRESSION: Intraoperative imaging provided for left knee injection. Electronically Signed: Jann Rosenberg MD at 15:03 EST ,
[2021-07-31] MEDS: MethylPREDNISolone Acetate 40 MG/ML Vial IM (09:56)
[2021-07-31] MEDS: Lidocaine 1% (5 ml sdv) 5 ML Vial (09:56)
[2021-07-31] MEDS: Bupivacaine 0.25% 30 ML Vial (09:57)
[2021-07-31 10:03] VITALS: BP 115/72; BP 99/69; PULSE 79; RESP 16; TEMP 36.4; O2SAT 100
[2021-07-31 10:15] VITALS: BP 115/72; BP 96/72; PULSE 64; RESP 16; O2SAT 100
[2021-07-31 10:17] VITALS: BP 100/88; BP 115/72; PULSE 65; RESP 16; TEMP 36.3; O2SAT 100
[2021-07-31 10:25] VITALS: BP 115/72
--- NOTE | 2021-07-31 11:16 | PCM.OPRPT ---
Report of Operation Date of Procedure: 07/31/21 Description of Surgical Findings:: PREOPERATIVE DIAGNOSIS: Osteoarthritis of the left knee. POSTOPERATIVE DIAGNOSIS: Osteoarthritis of the left knee. PROCEDURE PERFORMED: left knee intraarticular steroid injection under fluoroscopic guidance. ANESTHESIA:Local. BLOOD LOSS: Minimal. COMPLICATIONS: None. DESCRIPTION OF PROCEDURE: History and physical of today was reviewed. Risks and benefits of the procedure were explained. The patient understood and agreed to proceed. Informed consent was obtained. IV inserted per routine protocol. The patient was taken to the operating room and placed in the supine position. The left knee area was prepped and draped in a sterile fashion using iodine x3. Under fluoroscopy guidance on AP view, the left knee joint was visualized. The skin and subcutaneous tissue was anesthetized with approximately 3 mL of 1% lidocaine using a 25-gauge regular needle at the medial aspect of the left knee. Under direct visualization with fluoroscopy, on AP view, using a 22-gauge 3-1/2-inch spinal needle, the needle was advanced via the skin. The tip of the needle was maneuvered and directed towards the intraarticular space at the medial compartment of the left knee. Once the tip of the needle was at the vicinity of the knee, after negative aspiration for blood, positive aspiration of the synovial fluid, a total of 1 mL of contrast was injected to confirm correct placement of the needle as well as intraarticular spread medial as well as lateral compartment. After confirmation on AP as well as lateral view and repeated negative aspiration, a total of 5 m of preservative-free 0.25% Marcaine with 40 mg of Depo-Medrol was injected easily. The needle was then removed intact. The patient experienced no sign or symptoms of intravascular injection. The patient experienced no paresthesia. The procedure was completed without any apparent difficulty or any complications. The patient appeared to tolerate it well. Assessment and plan: This is a 65-year-old female with osteoarthritis of the left knee status post left knee intra-articular steroid injection under fluoroscopic guidance, patient will continue current medications, patient will follow approximately 2 weeks for reevaluation.
== END 2021-07-31 23:59 | disposition home or self-care (01) ==
LOC: SDC 08:12 → AC 08:13
PROVIDERS: PCP Internal Medicine; Referring Provider Anesthesiology Pain Medicine; Visit Provider Anesthesiology Pain Medicine
PROC: 3E0U3GC Introduction of Other Therapeutic Substance into Joints, Percutaneous Approach (ICD-10-PCS; CPT 20610; principal; 2021-07-31 09:40)
DX: M17.12 Unilateral primary osteoarthritis, left knee (principal); E66.01 Morbid (severe) obesity due to excess calories; Z68.44 Body mass index [BMI] 60.0-69.9, adult; K21.9 Gastro-esophageal reflux disease without esophagitis; E03.9 Hypothyroidism, unspecified; F32.A Depression, unspecified; E78.5 Hyperlipidemia, unspecified; I10 Essential (primary) hypertension; Z95.5 Presence of coronary angioplasty implant and graft; Z79.899 Other long term (current) drug therapy; Z86.16 Personal history of COVID-19; Z79.891 Long term (current) use of opiate analgesic
CPT/HCPCS: 20610; 76000; 77002; J7120

== ENCOUNTER → 2021-12-08 | Outpatient (CLI) | payer MEDICARE, MEDICAID, SELFPAY ==
[2021-12-08 15:12] LABS: Absolute Neutrophil Count 2.4 X10^3/uL (2.0-7.7); Basophil# 0.03 X10^3/uL; Basophil% 0.6 % (0-1); Eosinophil# 0.13 X10^3/uL; Eosinophils% 2.4 % (0-5); Hematocrit 41.9 % (37-47); Hemoglobin 13.2 g/dL (12.0-15.0); Lymphocyte % 43.1 % (19-41); Mean Corp Hgb Conc 31.5 g/dL (32-36); Mean Corpuscular Volume 95.2 fL (81-99); Mean Platelet Vol. 10.2 fl (6.2-12.0); Monocyte# 0.46 X10^3/uL; Monocyte% 8.6 % (0-10); NRBC Flagged by Analyzer 0 % (0-5); Neutrophil % 44.9 % (47-70); Platelet Count 215 K/mm3 (150-450); RBC Distribution Width CV 13.9 % (11.6-14.6); RBC Distribution Width SD 48.5 fl (35.1-43.9); White Blood Count 5.3 K/mm3 (4.4-11.0)
[2021-12-08 15:52] LABS: ALB/GLOB Ratio 0.9 RATIO (0.9-2.4); AST(SGOT) 18 U/L (15-37); Alanine Aminotransfer ALT/SGPT 19 U/L (13-56); Albumin, Serum 3.2 g/dL (3.2-5.0); Alkaline Phosphatase 97 U/L (45-117); Anion Gap 3 (5-15); BUN 13 mg/dL (7-18); BUN/Creat Ratio 17.9 RATIO (10-20); Calcium,Total 9.2 mg/dL (8.5-10.1); Chloride 108 mmol/L (98-107); Cholesterol 211 mg/dL (200); Creatinine, Serum 0.73 mg/dL (0.55-1.02); EST Glomerular Filtration Rate 85 mL/min (>60); Est Glom Filt Rate - Afr Amer 103 mL/min (>60); Globulin 3.7 g/dL (2.2-4.2); Glucose 97 mg/dL (74-106); High Density Lipoprotein 68 mg/dL; Protein, Total 6.9 g/dL (6.4-8.2); Sodium Level 142 mmol/L (136-145); Triglycerides 100 mg/dL; Very Low Density Lipoprotein 20 mg/dL (5-40)
== END | disposition home or self-care (01) ==
LOC: BIMLAB 14:20
PROVIDERS: PCP Internal Medicine; Referring Provider Internal Medicine; Visit Provider Internal Medicine
DX: F32.9 Major depressive disorder, single episode, unspecified (principal); E66.01 Morbid (severe) obesity due to excess calories; Z68.44 Body mass index [BMI] 60.0-69.9, adult; K91.2 Postsurgical malabsorption, not elsewhere classified
CPT/HCPCS: 36415; 80053; 80061; 83036; 85025

== ENCOUNTER 2022-05-28 05:52 | Day surgery (SDC) | payer MEDICARE, MEDICAID, SELFPAY ==
[2022-05-28] VITALS (7 sets, daily range): BP systolic 110–117; BP diastolic 61–88; PULSE 70–76; RESP 16–18; TEMP 36.4–36.6; O2SAT 98–100; BMI 61.7
[2022-05-28] MEDS: Lactated Ringers 1,000 ML 15 ML IV (06:33)
--- NOTE | 2022-05-28 07:25 | RAD_ITS ---
STUDY: X-RAY - LEFT KNEE REASON FOR EXAM: Female, 66 years old. Radio ablation of the left geniculate nerve TECHNIQUE: 6 intraoperative view(s) of the knee. COMPARISON: None. FINDINGS: 6 limited intraoperative views of the knee performed as the patient has undergone radioablation of the left geniculate nerve. No intraoperative complications noted. RAD/Knee 1 or 2 Views IMPRESSION: Status post radioablation of the left genicular nerve, no intraoperative complications. Electronically Signed: Bertram Eastman MD at 16:56 EST ,
[2022-05-28] MEDS: MethylPREDNISolone Acetate 80 MG/ML Vial (07:48)
[2022-05-28] MEDS: Lidocaine 1% (5 ml sdv) 5 ML Vial ×3 (07:48)
--- NOTE | 2022-05-28 08:02 | PCM.OPRPT ---
Report of Operation Date of Procedure: 05/28/22 Pre-Operative Diagnosis: Osteoarthritis of the left knee Post-Operative Diagnosis: Osteoarthritis of the left knee Surgery/Procedure Performed:: left knee radiofrequency ablation of the superior medial, superior lateral, inferior medial genicular nerves under fluoroscopic guidance Description of Surgical Findings:: DESCRIPTION OF PROCEDURE: History and physical of today was reviewed. Risks and benefits of the procedure were explained. The patient understood and agreed to proceed. Informed consent was obtained. IV inserted per routine protocol. The patient was taken to the operating room and placed in the supine position. The left knee was prepped and draped in a sterile fashion using iodine x3. Under fluoroscopy guidance on AP view, the left knee was visualized. The skin and subcutaneous tissue was anesthetized with approximately 15 mL of 1% lidocaine using a 25-gauge regular needle at the vicinity of the superomedial, superolateral, and inferomedial genicular nerves. Under direct visualization of fluoroscopy on AP view as well as lateral view, starting on the left superomedial, ending on the left inferomedial, passing through the left superolateral genicular nerves, using a 20-gauge 10 cm with a 10 mm curved active tip radiofrequency ablation needle, the needle was passed through the skin. The tip of the needle was maneuvered and directed towards the diaphyseal junction of each corresponding nerve. Once tip of the needle was in the vicinity of the diaphysis and in contact with the bone, after confirmation on AP as well as lateral view and repeated negative aspiration for blood, radiofrequency ablation probe was then inserted at each level impedance was then recorded at the superior medial 285, at the superior lateral 262, at the inferior medial 271 ohm, motor evoked potential was then initiated to 1.5 V without any motor response at each corresponding level, a total of 3 cc of 1% lidocaine were injected in divided doses between the 3 levels after repeated negative aspiration for blood the radiofrequency ablation probe was then reinserted after repeated confirmation on AP oblique as well as lateral view radiofrequency ablation was then initiated to 80 ?C for 90 seconds at each level once concluded the probe was then removed intact and a total of 6 mL of preservative-free 0.25% Marcaine with 40 mg of Depo-Medrol was injected in divided doses between those three levels. The needles were then removed intact. The patient experienced no sign or symptoms of intravascular injection. The patient experienced no paresthesia. The procedure was completed without any apparent difficulty or any complications. The patient appeared to tolerate it well. ASSESSMENT AND PLAN: This is a 66-year-old female with osteoarthritis of the left knee status post left knee radiofrequency ablation of the superior medial, superior lateral, inferior medial genicular nerves under fluoroscopic guidance, patient will continue her current medications, patient will follow in approximately 2 weeks for reevaluation. Type of Anesthesia: MAC Estimated Blood Loss (mL): Minimal Complications None.
== END 2022-05-28 09:01 | disposition home or self-care (01) ==
LOC: SDC 05:53 → AC 05:54
PROVIDERS: PCP Internal Medicine; Referring Provider Anesthesiology Pain Medicine; Visit Provider Anesthesiology Pain Medicine
PROC: (CPT 64624; principal; 2022-05-28 07:25)
DX: M17.12 Unilateral primary osteoarthritis, left knee (principal); Z98.84 Bariatric surgery status
CPT/HCPCS: 64624; 73560; 76000; J7120

== ENCOUNTER 2022-09-11 20:21 | Outpatient (CLI) | payer MEDICARE, MEDICAID, SELFPAY | END 2022-09-11 23:59 | disposition home or self-care (01) | LOC: SL 20:21 | PROVIDERS: PCP Internal Medicine; Visit Provider Internal Medicine | DX: G47.33 Obstructive sleep apnea (adult) (pediatric) (principal) | CPT/HCPCS: 95811 ==

== ENCOUNTER → 2022-10-04 | Outpatient (CLI) | payer MEDICARE, MEDICAID, SELFPAY ==
--- NOTE | 2022-10-04 09:27 | RAD_ITS ---
STUDY: X-RAY - LEFT KNEE REASON FOR EXAM: Female, 67 years old. PAIN TECHNIQUE: 2 view(s) of the knee. COMPARISON: Prior comparison studies are not available for review at this time. FINDINGS: Normal visualized distal femur. Normal visualized proximal tibia and fibula. Normal proximal tibiofibular articulation. Normal medial femorotibial compartment. There is moderate degenerative arthrosis of the lateral femorotibial compartment with moderate joint space narrowing. There is moderate degenerative arthrosis of the patellofemoral articulation. No joint effusion, there are degenerative spurs. The soft tissue structures are unremarkable. RAD/Knee 1 or 2 Views IMPRESSION: Degenerative arthrosis. Electronically Signed: Bertram Eastman MD at 9:52 EDT ,
== END | disposition home or self-care (01) ==
LOC: RAD 09:26
PROVIDERS: PCP Internal Medicine; Visit Provider Nurse Practitioner Acute Care
DX: M17.12 Unilateral primary osteoarthritis, left knee (principal)
CPT/HCPCS: 73560

== ENCOUNTER → 2022-11-12 | Outpatient (CLI) | payer MEDICARE, MEDICAID, SELFPAY ==
[2022-11-12 11:55] LABS: Bacteria 0 SEEN /hpf (None Seen); Mucous, Urine 0 SEEN /hpf (<or=2+); Red Blood Cells-Urine 0 SEEN /hpf (0-5); White Blood Cells 0 SEEN /hpf (0-5)
[2022-11-12 15:41] LABS: Absolute Lymphocyte Count 2.31 X10^3/uL (0.83-4.51); Absolute Neutrophil Count 2.1 X10^3/uL (2.0-7.7); Basophil# 0.04 X10^3/uL; Basophil% 0.8 % (0-1); Hematocrit 46.2 % (37-47); Hemoglobin 13.9 g/dL (12.0-15.0); Lymphocyte # 2.31 X10^3/ul (0.83-4.51); Lymphocyte % 46.1 % (19-41); Mean Corp Hgb Conc 30.1 g/dL (32-36); Mean Corpuscular Hgb 28.6 pg (27.0-32.0); Mean Corpuscular Volume 95.1 fL (81-99); Mean Platelet Vol. 10.7 fl (6.2-12.0); Monocyte# 0.47 X10^3/uL; Monocyte% 9.4 % (0-10); NRBC Flagged by Analyzer 0 % (0-5); Neutrophil # 2.08 X10^3/uL (2.7-7.7); Neutrophil % 41.5 % (47-70); Platelet Count 242 K/mm3 (150-450); RBC Distribution Width CV 14.8 % (11.6-14.6); RBC Distribution Width SD 51.5 fl (35.1-43.9); Red Blood Count 4.86 M/mm3 (4.2-5.4)
[2022-11-12 15:42] LABS: Color, Urine Yellow (Yellow); Glucose, Dipstick Normal (Normal); Ketone-Dipstick Negative (Negative); Leukocyte Esterase-Dipstick Negative /ul (Negative); Nitrite-Dipstick Negative (Negative); Occult Blood-Urine Negative /ul (Negative); Protein-Dipstick Negative (Negative); Urine Bilirubin Dipstick Negative (Negative); Urine Clarity Clear (Clear); Urine Urobilinogen Normal (Normal)
[2022-11-12 16:08] LABS: ALB/GLOB Ratio 0.8 RATIO (0.9-2.4); AST(SGOT) 22 U/L (15-37); Alanine Aminotransfer ALT/SGPT 33 U/L (13-56); Albumin, Serum 3.2 g/dL (3.2-5.0); Alkaline Phosphatase 106 U/L (45-117); Anion Gap 5 (5-15); BUN 10 mg/dL (7-18); BUN/Creat Ratio 14.1 RATIO (10-20); Calcium,Total 8.9 mg/dL (8.5-10.1); Chloride 105 mmol/L (98-107); Cholesterol 242 mg/dL (200); Creatinine, Serum 0.71 mg/dL (0.55-1.02); EST Glomerular Filtration Rate 88 mL/min (>60); Est Glom Filt Rate - Afr Amer 106 mL/min (>60); Globulin 3.9 g/dL (2.2-4.2); Glucose 73 mg/dL (74-106); High Density Lipoprotein 83 mg/dL; Protein, Total 7.1 g/dL (6.4-8.2); Sodium Level 139 mmol/L (136-145); Triglycerides 117 mg/dL; Very Low Density Lipoprotein 23 mg/dL (5-40)
[2022-11-12 16:12] LABS: Vitamin B12 > 2000 pg/mL (211-911)
[2022-11-12 16:22] LABS: Squamous Epithelial Cells - UA 0-5 SEEN /hpf (5-10)
== END | disposition home or self-care (01) ==
LOC: BIMLAB 11:51
PROVIDERS: PCP Internal Medicine; Referring Provider Internal Medicine; Visit Provider Internal Medicine
DX: R73.03 Prediabetes (principal); R35.0 Frequency of micturition; K91.2 Postsurgical malabsorption, not elsewhere classified
CPT/HCPCS: 36415; 80053; 80061; 81001; 82306; 82607; 85025

== ENCOUNTER → 2023-01-10 | Outpatient (CLI) | payer MEDICARE, SELFPAY ==
--- NOTE | 2023-01-10 13:03 | VDLE_ITS ---
Reason For Study: LLE PAIN Procedure LEFT This is a venous duplex using B-mode, color GSV is normal. flow and spectral Doppler. CFV is compressible, spontaneous, phasic, Exam performed in department. competent, and demonstrates normal A preliminary report was called and/or faxed augmentation. to Dr. Ham @ [phone] @ 1:35 pm. FV is compressible, spontaneous, phasic, competent and demonstrates normal augmentation. POP V is compressible, spontaneous, phasic, competent and demonstrates normal augmentation. T/P Trunk is compressible. PTV is compressible. LT PerV is compressible. VL/Venous Duplex US, Unilateral Interpretation Summary Deep veins of the left lower extremity are patent and compressible segmentally. There is no evidence of left lower extremity deep vein thrombosis. The left great saphenous vein myranda ears patent and compressible segmentally. Ordering Physician: Catrachita Ham Referring Physician: Catrachita Ham Performed By: Anny Aviles, KUNAL, RVT
--- NOTE | 2023-01-10 13:30 | RAD_ITS ---
STUDY: X-RAY - LEFT KNEE REASON FOR EXAM: Female, 67 years old. Left knee pain. TECHNIQUE: 3 view(s) of the knee. COMPARISON: Left knee x-rays dated October 04, 2022. FINDINGS: Osteopenia with valgus deformity of the knee, mild arthrosis of the medial compartment, moderate arthrosis of the lateral compartment and moderate to marked arthrosis of the patellofemoral compartment, unchanged from prior study. Normal soft tissues. RAD/Knee 3 Views IMPRESSION: Stable osteopenia with tricompartmental arthrosis. Electronically Signed: Espinoza Kelley MD at 15:58 EDT ,
== END | disposition home or self-care (01) ==
LOC: CVS 12:57
PROVIDERS: PCP Internal Medicine; Referring Provider Internal Medicine; Visit Provider Internal Medicine
DX: M25.562 Pain in left knee (principal); M79.89 Other specified soft tissue disorders
CPT/HCPCS: 73562; 93971

== ENCOUNTER → 2023-01-18 | Outpatient (CLI) | payer MEDICARE, SELFPAY ==
--- NOTE | 2023-01-18 13:02 | US_ITS ---
STUDY: RENAL ULTRASOUND - COMPLETE REASON FOR EXAM: Female, 67 years old. UTI TECHNIQUE: Ultrasound evaluation of the kidneys was performed with real-time and static olivo-scale imaging. COMPARISON: None. FINDINGS: RIGHT KIDNEY: Normal location of the right kidney, which is normal in size. The right kidney measures 9.9 cm. There is a normal cortex of the right kidney. The renal cortex measures 2.1 cm. There is no right renal mass or cyst. There are no right renal calculi. There is no right hydronephrosis. DISTAL RIGHT URETER: There is non-visualization of the distal right ureter. There is no demonstrated right ureterovesical junction calculus. There is a visualized right ureteral jet. LEFT KIDNEY: Normal location of the left kidney, which is normal in size. The left kidney measures 10.5 cm. There is a normal cortex of the left kidney. The renal cortex measures 1.9 cm. There is no left renal mass or cyst. There are no left renal calculi. There is mild hydronephrosis of the left kidney. DISTAL LEFT URETER: There is non-visualization of the distal left ureter. There is no demonstrated left ureterovesical junction calculus. There is a visualized left ureteral jet. BLADDER: The distended urinary bladder has a volume of 148 ml. The empty urinary bladder has a volume of 12 ml. There is a normal wall thickness of the distended urinary bladder. There is no demonstrated mass within the urinary bladder. There are no demonstrated bladder calculi. US/Kidney and Bladder IMPRESSION: Mild left hydronephrosis. CT may be useful. Electronically Signed: Mauricio Chow MD at 23:39 EDT ,
== END | disposition home or self-care (01) ==
LOC: US 12:57
PROVIDERS: PCP Internal Medicine; Referring Provider Urology; Visit Provider Urology
DX: N39.0 Urinary tract infection, site not specified (principal)
CPT/HCPCS: 76770

== ENCOUNTER → 2023-02-13 | Outpatient (CLI) | payer MEDICARE, MEDICAID, SELFPAY ==
--- NOTE | 2023-02-13 13:37 | CT_ITS ---
INDICATION: HYDRONEPHROSIS EXAMINATION: CT Abdomen And Pelvis WO/W Contrast Injection TECHNIQUE: Helically acquired images were obtained of the abdomen and pelvis before and after IV contrast. A radiation dose optimization technique was used for this scan. IV Contrast dosage and agent: IV 100mL Isovue-300 Oral contrast: None. COMPARISON: 03/31/2014 FINDINGS: Visualized lung bases: Unremarkable Liver: Unremarkable Gallbladder: Unremarkable Spleen: Unremarkable Pancreas: Unremarkable Adrenal Glands: Unremarkable Kidneys: Mild left pelviectasis. No obstructing stone, mass or stricture. Vasculature: Mild scattered aortoiliac atherosclerotic calcifications. GI Tract: Postsurgical changes status post subtotal gastrectomy. Lymphadenopathy: None Peritoneum: No ascites. Bladder: Unremarkable Reproductive organs: Unremarkable Bones/Soft tissues: There are diffuse degenerative changes of the spine. Diastasis of the rectus muscles. CT/CT Abd/Pelvis W/WO Contrast IMPRESSION: Mild left pelviectasis with no obstructing stone, mass or stricture. Electronically Signed: Aubrey Connor MD at 23:52 EDT ,
[2023-02-13 13:43] LABS: EGFR FINGERSTICK > 60.0000 mL/min (>60)
== END | disposition home or self-care (01) ==
LOC: CT 13:08
PROVIDERS: PCP Internal Medicine; Referring Provider Urology; Visit Provider Urology
DX: N13.30 Unspecified hydronephrosis (principal)
CPT/HCPCS: 74178; Q9967; A4216

== ENCOUNTER → 2023-05-13 | Outpatient (CLI) | payer MEDICARE, MEDICAID, SELFPAY | END | disposition home or self-care (01) | LOC: SL 11:42 | PROVIDERS: PCP Internal Medicine; Referring Provider Internal Medicine; Visit Provider Internal Medicine | DX: Z46.89 Encounter for fitting and adjustment of other specified devices (principal) ==

== ENCOUNTER 2023-07-22 17:52 | Emergency (ER) | payer MEDICARE, MEDICAID, SELFPAY ==
[2023-07-22 17:53] VITALS: BP 142/83; PULSE 79; RESP 18; TEMP 36.6; O2SAT 100; BMI 56.7
--- NOTE | 2023-07-22 21:35 | ED.RN ---
Pt states she is tired of waiting. Informed she was next to go back. Patient ambulates out of department.
--- OUTSIDE RECORDS SUMMARY | 2023-07-22 21:39 | XMS RPT_ITS | CCD ---
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 locations and available times, please visit [email or web address] v/. It is important to note that some COVID mobile vaccine clinics are held outdoors and may be canceled in rainy or stormy conditions. To learn more about pediatric vaccinations (ages 5-11), we invite you to visit the [facility] webpage. https://www.[facility].org/pag es/8029-Aezrs-Bcoxabfvnpv-Frequent zv-Cxtmw-Gxbsurccm.html To learn more about the COVID-19 vaccine, we invite you to visit the CDC website for a list of frequently asked questions. https://www.cdc.gov/coronavirus/ 19-ncov/vaccines/faq.html [facility] Patient Portal Access Instructions: Stay connected with your healthcare team and access your personal medical information anytime with the [facility] Patient Portal. If you would like a full copy of your medical records please contact the [facility] Medical Records Department Saturday through Saturday between 8a.m. and 4:30p.m. Please follow the directions below to access the portal: 1.Access the email account you provided upon registration to the [facility].2.Look for an invitation email from [facility].3.Open the email and access the invitation link: Accept Invitation to [facility]4.Fill in the required bernardo to create your account. Sign into [email or web address] with your username and password that you created in the above steps to stay up to date. You can then view a summary of results, a summary of your visits, and the ability to download your summaries to your computer or send the information securely to a physician. Remember that your healthcare information is confidential, so carefully consider who you will allow to register on the [facility] Patient Portal for access to your information. You can also access the [facility] Patient Portal on the [employer] myranda. Simply click on Health Records under Health Data and then click on the Rene logo. HOW TO SAFELY DISPOSE OF PRESCRIPTION MEDICATIONS Please use one of the following methods to safely dispose of your unused medications. 1.Use a drug disposal kit: the drug disposal pouch allows you to safely discard your old and unused drugs. Ask your nurse to give you one when you are discharged.2.Visit a local take-back location: Many local pharmacies and police departments have programs that collect old and unwanted prescription drugs. Call your local pharmacy or go to http://Spark Authors.HealthcareSource/2X1Dx3t to find one close to you.3.Make use of household items: Use cat litter or old coffee grounds to dispose medications if other options are not available. Mix your drugs with these household products, seal them in an airtight container and throw it into the garbage. Call [facility]: [phone] to be sure your drugs can be disposed of in this way. Some medicines may require a different approach.4.Never flush your medications down the toilet. IF YOU HAVE BEEN PRESCRIBED AN OPIOIDS FOR PAIN If you have been prescribed an opioid (such as hydrocodone, oxycodone or morphine), it is critical to understand the possible side effects and risks of opioid pain medications. Even when taken as directed, opioids can have several side effects including: Tolerance, meaning you might need to take more of a medication for the same pain relief. Nausea, vomiting and/or constipation. Sleepiness, dizziness, dry mouth, confusion, depression or itching. Physical dependence, meaning you have withdrawal symptoms when a medication is stopped ? this can develop within a few days. KNOW YOUR RESPONSIBILITIES It is important to know exactly how much and how often to take the opioid pain medications you are prescribed. Never take opioids in higher amounts or more often than prescribed. Do not combine opioids with alcohol or other drugs that cause drowsiness, such as benzodiazepines, also known as benzos, including diazepam and alprazolam, muscle relaxants or sleep aids. Never sell or share prescription opioids. This is illegal. Store opioids in a secure place and out of reach of others (including children, family, friends and visitors). The last page(s) of this document has been signed and retained as a CHART COPY Signatures Patient Education Materials Chronic Pain Medication Leaflets My discharge plan and instructions have been reviewed and explained to me and I,HALLEY SANCHEZ understand my current condition and have read and understand these discharge instructions. I have received a written copy of the plan/instructions. If I have questions, I am aware that I should contact my doctor. Patient/Hoop Riveter Signature: Date/Time: Relationship to Patient: ___ Witness Name/Signature: Date/Time: [facility] 08-08-2022 Hospital Discharge instructions Patient Education 08/08/2022 14:12:18 Arthralgia Arthralgia Arthralgia is the term for pain in or around the joint. It is a symptom, not a disease. This pain may involve one or more joints. In some cases, the pain moves from joint to joint. There are many causes for joint pain. These include: Injury Osteoarthritis (wearing out of the joint surface) Gout (inflammation of the joint due to crystals in the joint fluid) Infection inside the joint Bursitis (inflammation of the fluid-filled sacs around the joint) Autoimmune disorders such as rheumatoid arthritis or lupus Tendonitis (inflammation of chords that attach muscle to bone) Home care Rest the involved joint(s) until your symptoms improve. You may be prescribed pain medicine. If none is prescribed, you may use acetaminophen or ibuprofen to control pain and inflammation. Follow-up care Follow up with your healthcare provider or as advised. When to seek medical advice Contact your healthcare provider right away if any of the following occurs: Pain, swelling, or redness of joint increases Pain worsens or recurs after a period of improvement Pain moves to other joints You cannot bear weight on the affected joint You cannot move the affected joint Joint appears deformed New rash appears Fever of 100.4 F (38 C) or higher, or as directed by your healthcare provider 2880-2924 [employer]. [address] [place] [address]. All rights reserved. This information is not intended as a substitute for professional medical care. Always follow your healthcare professional's instructions. Follow Up Care 08/08/2022 12:56:30 With:CATRACHITA HAM MD Address: [address] [place] [address]- [phone] When:2-4 days [facility] 08-08-2022 Note Discharge Instructions Thank you for allowing [facility] to assist you with your healthcare needs. The following is important discharge information regarding your hospital visit. Diagnosis from Today's Visit Knee pain Leg pain-swelling What to Do Next Instructions from Your Care Team No qualifying data available. Post Acute Orders No qualifying data available. You Need to Schedule the Following Appointments Follow Up with CATRACHITA HAM MD When Within 2-4 days Where: [facility] [place] [address] [phone] Allergies cephalexin morphine Medications Please ask your primary doctor or pharmacist before taking any other medication not listed, including over the counter drugs, herbal medications, vitamins and or supplements as they may interact with your home medications. What How Much When Instructions Last Dose Unchanged acetaminophen-oxyCODONE (acetaminophen-oxycodone 325 mg-10 mg oral tablet) 1 tab(s) by mouth Every 6 hours as needed for for pain Unchanged DULoxetine (DULoxetine 60 mg oral delayed release capsule) 1 cap by mouth Once a day Unchanged fluticasone nasal (fluticasone proprionate NASAL 50 mcg/ spray) 1 spray(s) each nostril Two (2) times a day Unchanged phentermine (phentermine 30 mg oral capsule) 1 cap by mouth Every day Unchanged pregabalin (pregabalin 150 mg oral capsule) 1 cap by mouth Three (3) times a day Unchanged trospium (trospium 20 mg oral tablet) 1 tab(s) by mouth Two (2) times a day Please take this list to your next doctor s visit. Bring all medications you take, including over the counter medications, herbals and other supplements with you to your doctor s visit. Patients and families are reminded to discard old lists and to update any records with all medication providers or retail pharmacies. Education Materials Arthralgia Arthralgia is the term for pain in or around the joint. It is a symptom, not a disease. This pain may involve one or more joints. In some cases, the pain moves from joint to joint. There are many causes for joint pain. These include: Injury Osteoarthritis (wearing out of the joint surface) Gout (inflammation of the joint due to crystals in the joint fluid) Infection inside the joint Bursitis (inflammation of the fluid-filled sacs around the joint) Autoimmune disorders such as rheumatoid arthritis or lupus Tendonitis (inflammation of chords that attach muscle to bone) Home care Rest the involved joint(s) until your symptoms improve. You may be prescribed pain medicine. If none is prescribed, you may use acetaminophen or ibuprofen to control pain and inflammation. Follow-up care Follow up with your healthcare provider or as advised. When to seek medical advice Contact your healthcare provider right away if any of the following occurs: Pain, swelling, or redness of joint increases Pain worsens or recurs after a period of improvement Pain moves to other joints You cannot bear weight on the affected joint You cannot move the affected joint Joint appears deformed New rash appears Fever of 100.4 F (38 C) or higher, or as directed by your healthcare provider [id number] [employer]. [address] [place] [address], [place] [address]. All rights reserved. This information is not intended as a substitute for professional medical care. Always follow your healthcare professional's instructions. Additional Information VACCINATE! IT SAVES LIVES! Members of the community who have not yet received the COVID-19 vaccine and would like to receive it can visit one of [facility] vaccine clinics. There are many vaccine clinic locations within the [facility]. For locations and available times, please visit [email or web address] v/. It is important to note that some COVID mobile vaccine clinics are held outdoors and may be canceled in rainy or stormy conditions. To learn more about pediatric vaccinations (ages 5-11), we invite you to visit the [facility] webpage. https://www.[facility].org/pag es/0606-Bttzu-Hziuiymujon-Frequent qn-Xwboh-Pmthqonkb.html To learn more about the COVID-19 vaccine, we invite you to visit the CDC website for a list of frequently asked questions. https://www.cdc.gov/coronavirus/-ncov/vaccines/faq.html [facility] Patient Portal Access Instructions: Stay connected with your healthcare team and access your personal medical information anytime with the [facility] Patient Portal. If you would like a full copy of your medical records please contact the [facility] Medical Records Department Saturday through Saturday between 8a.m. and 4:30p.m. Please follow the directions below to access the portal: 1.Access the email account you provided upon registration to the hospital.2.Look for an invitation email from [facility].3.Open the email and access the invitation link: Accept Invitation to [facility]4.Fill in the required bernardo to create your account. Sign into [email or web address] with your username and password that you created in the above steps to stay up to date. You can then view a summary of results, a summary of your visits, and the ability to download your summaries to your computer or send the information securely to a physician. Remember that your healthcare information is confidential, so carefully consider who you will allow to register on the [facility] Patient Portal for access to your information. You can also access the [facility] Patient Portal on the [employer]. Simply click on Health Records under Health Data and then click on the [email or web address] logo. HOW TO SAFELY DISPOSE OF PRESCRIPTION MEDICATIONS Please use one of the following methods to safely dispose of your unused medications. 1.Use a drug disposal kit: the drug disposal pouch allows you to safely discard your old and unused drugs. Ask your nurse to give you one when you are discharged.2.Visit a local take-back location: Many local pharmacies and police departments have programs that collect old and unwanted prescription drugs. Call your local pharmacy or go to http://Spark Authors.HealthcareSource/7V0Cu9n to find one close to you.3.Make use of household items: Use cat litter or old coffee grounds to dispose medications if other options are not available. Mix your drugs with these household products, seal them in an airtight container and throw it into the garbage. Call [facility]: [phone] to be sure your drugs can be disposed of in this way. Some medicines may require a different approach.4.Never flush your medications down the toilet. IF YOU HAVE BEEN PRESCRIBED AN OPIOIDS FOR PAIN If you have been prescribed an opioid (such as hydrocodone, oxycodone or morphine), it is critical to understand the possible side effects and risks of opioid pain medications. Even when taken as directed, opioids can have several side effects including: Tolerance, meaning you might need to take more of a medication for the same pain relief. Nausea, vomiting and/or constipation. Sleepiness, dizziness, dry mouth, confusion, depression or itching. Physical dependence, meaning you have withdrawal symptoms when a medication is stopped ? this can develop within a few days. KNOW YOUR RESPONSIBILITIES It is important to know exactly how much and how often to take the opioid pain medications you are prescribed. Never take opioids in higher amounts or more often than prescribed. Do not combine opioids with alcohol or other drugs that cause drowsiness, such as benzodiazepines, also known as benzos, including diazepam and alprazolam, muscle relaxants or sleep aids. Never sell or share prescription opioids. This is illegal. Store opioids in a secure place and out of reach of others (including children, family, friends and visitors). The last page(s) of this document has been signed and retained as a CHART COPY Signatures Patient Education Materials Arthralgia Medication Leaflets My discharge plan and instructions have been reviewed and explained to me and I,HALLEY SANCHEZ understand my current condition and have read and understand these discharge instructions. I have received a written copy of the plan/instructions. If I have questions, I am aware that I should contact my doctor. Patient/Hoop Riveter Signature: Date/Time: Relationship to Patient: ___ Witness Name/Signature: Date/Time: [facility] 07-02-2022 Hospital Discharge instructions Patient Education 07/02/2022 18:25:51 Chronic Pain Chronic Pain Pain serves an important role. It lets you know something is wrong that needs your attention. When the body heals, pain normally goes away. When pain lasts longer than 6 months, it is called chronic pain. This is pain that is present even after the body has healed. Chronic pain can cause mood problems and get in the way of your relationships and your daily life. A number of conditions can cause chronic pain. Some of the more common include: Previous surgery An old injury Infection Diseases such as diabetes Nerve damage Back injury Arthritis Migraine or other headaches Fibromyalgia Cancer Depression and stress can make chronic pain symptoms worse. In some cases, a cause for the pain can't be found. Treatment Treatment can greatly reduce pain. In many cases, pain can become less severe, occur less often, and interfere less with your daily life. Chronic pain is often treated with a combination of medicines, therapies, and lifestyle changes. You will work closely with your healthcare provider to find a treatment plan that works best for you. Ask your healthcare provider for a referral to a pain management specialty center. These can provide the most recent and proven pain management strategies, along with emotional support and comprehensive services. Several different types of medicines may be prescribed for chronic pain. Work with your healthcare provider to develop a medicine plan that helps manage your pain. Physical therapy can help reduce certain types of chronic pain. Occupational therapy teaches you how to do routine tasks of daily living in ways that lessen your discomfort. Counseling can help you cope better with stress and pain. Other therapies such as meditation, yoga, biofeedback, massage, and acupuncture can also help manage chronic pain. Changing certain habits can help reduce chronic pain. They include: oEating healthy oDeveloping an exercise routine oGetting enough sleep oStopping smoking and limiting alcohol use oLosing excess weight Follow-up care Follow up with your healthcare provider, or as advised. Let your healthcare provider know if your current treatment plan is working or if changes are needed. Resources For more information, contact: [place] [employer], ahmd.memberCareinSync.[place] or [phone] [place] [employer], theacpa.org or [phone] [employer] [place] [address]. All rights reserved. This information is not intended as a substitute for professional medical care. Always follow your healthcare professional's instructions. 07/02/2022 18:25:29 Knee Pain of Uncertain Cause Knee Pain with Uncertain Cause There are several common causes for knee pain. These can include: A sprain of the ligaments that support the joint An injury to the cartilage lining of the joint Arthritis from pgvk-vas-flob or inflammation There are other causes as well. There may also be swelling, reduced movement of the knee joint, and pain with walking. A definite diagnosis will still need to be made. If your symptoms don't improve, further follow-up and testing may be needed. Home care Stay off the injured leg as much as possible until pain improves. Apply an ice pack over the injured area for 15 to 20 minutes every 3 to 6 hours. You should do this for the first 24 to 48 hours. You can make an ice pack by filling a plastic bag that seals at the top with ice cubes and then wrapping it with a thin towel. Continue to use ice packs for relief of pain and swelling as needed. As the ice melts, be careful not to get your wrap, splint, or cast wet. After 48 hours, apply heat (warm shower or warm bath) for 15 to 20 minutes several times a day, or alternate ice and heat. If you have to wear a zlpw-grj-nvjm knee brace, you can open it to apply the ice pack, or heat, directly to the knee. Never put ice directly on the skin. Always wrap the ice in a towel or other type of cloth. You may use msac-vbi-jwipuoh pain medicine to control pain, unless another pain medicine was prescribed. If you have chronic liver or kidney disease or ever had a stomach ulcer or gastrointestinal bleeding, talk with your healthcare provider before using these medicines. If crutches or a walker have been recommended, don't put weight on the injured leg until you can do so without pain. Check with your healthcare provider before returning to sports or full work duties. If you have a ibur-did-yegz knee brace, you can remove it to bathe and sleep, unless told otherwise. Follow-up care Follow up with your healthcare provider as advised. This is usually within 1 to 2 weeks. If X-rays were taken, you will be told of any new findings that may affect your care Call 911 Call 911 if you have: Shortness of breath Chest pain When to seek medical advice Call your healthcare provider right away if any of these occur: Toes or foot becomes swollen, cold, blue, numb, or tingly Pain or swelling spreads over the knee or calf Warmth or redness appears over the knee or calf Other joints become painful Rash appears Fever of 100.4 F (38 C) or higher, or as directed by your healthcare provider Maximiliano [id number] [employer]. [address] [place] [address]. All rights reserved. This information is not intended as a substitute for professional medical care. Always follow your healthcare professional's instructions. 07/02/2022 18:25:11 Osteoarthritis Osteoarthritis Osteoarthritis (also called degenerative joint disease) happens when the cartilage in a joint becomes damaged and worn. This may be due to age, wear and tear, overuse of the joint, or other problems. Osteoarthritis can affect any joint. But it is most common in hands, knees, spine, hips, and feet. Symptoms include joint stiffness, pain, and swelling. Home care When a joint is more sore than usual, rest it for a day or two. Heat can help relieve stiffness. Take a hot bath or apply a heating pad for up to 30 minutes at a time. If symptoms are worse in the morning, using heat just after awakening can help relax the muscle and soothe the joints. Ice helps relieve pain and swelling. It is often used after activity. Use a cold pack wrapped in a thin cloth on the joint for 10 to 15 minutes at a time. Alternating hot and cold can also help relieve pain. Try this for 20 minutes at a time, several times per day. Exercise helps prevent the muscles and ligaments around the joint from becoming weak. It also helps maintain function in the joint. Be as active as you can. Talk to your healthcare provider about what activity program is best for you. Excess weight puts a lot of extra strain on weight-bearing joints of the lower back, hips, knees, feet and ankles. If you are overweight, talk to your healthcare provider about a safe and effective weight loss program. Use anti-inflammatory medicines as prescribed for pain. This includes acetaminophen or NSAIDs such as ibuprofen or naproxen. If needed, topical or injected medicines may be recommended. Talk to your healthcare provider if these options are not enough to manage your pain. Talk with your healthcare provider about devices that might help improve your function and reduce pain. Follow-up care Follow up with your healthcare provider as advised by our staff. When to seek medical advice Call your healthcare provider right away if any of these occur: Redness or swelling of a painful joint Discharge or pus from a painful joint Fever of 100.4 F (38 C) or higher, or as directed by your healthcare provider Worsening joint pain Decreased ability to move the joint or bear weight on the joint [id number] [employer]. [address] [place] [address]. All rights reserved. This information is not intended as a substitute for professional medical care. Always follow your healthcare professional's instructions. Follow Up Care 07/02/2022 15:36:19 With:ANI GIPSON Address: [address], [address] [place] [phone] Business (1) When:2-4 days Comments:Return to ED if symptoms worsen With:Follow-up with your pain management doctor soon as possible. Address:Unknown When:2-4 days With:CATRACHITA HAM MD Address: [address] [place] [address]- [phone] When:2-4 days [facility] 07-02-2022 Note Discharge Instructions Thank you for allowing [facility] to assist you with your healthcare needs. The following is important discharge information regarding your hospital visit. Diagnosis from Today's Visit Knee pain Osteoarthritis Knee pain-swelling What to Do Next Instructions from Your Care Team No qualifying data available. Post Acute Orders No qualifying data available. You Need to Schedule the Following Appointments Follow Up with ANI GIPSON When Within 2-4 days Why: Return to ED if symptoms worsen Where: [address], [address] [place] [address] [phone] Business (1) Follow Up with Follow-up with your pain management doctor soon as possible. When Within 2-4 days Follow Up with CATRACHITA HAM MD When Within 2-4 days Where: [address] [place] [address]- [phone] Allergies cephalexin morphine Medications Please ask your primary doctor or pharmacist before taking any other medication not listed, including over the counter drugs, herbal medications, vitamins and or supplements as they may interact with your home medications. What How Much When Instructions Last Dose Unchanged acetaminophen-oxyCODONE (acetaminophen-oxycodone 325 mg-10 mg oral tablet) 1 tab(s) by mouth Every 6 hours as needed for for pain Unchanged DULoxetine (DULoxetine 60 mg oral delayed release capsule) 1 cap by mouth Once a day Unchanged fluticasone nasal (fluticasone proprionate NASAL 50 mcg/ spray) 1 spray(s) each nostril Two (2) times a day Unchanged phentermine (phentermine 30 mg oral capsule) 1 cap by mouth Every day Unchanged pregabalin (pregabalin 150 mg oral capsule) 1 cap by mouth Three (3) times a day Unchanged trospium (trospium 20 mg oral tablet) 1 tab(s) by mouth Two (2) times a day Please take this list to your next doctor s visit. Bring all medications you take, including over the counter medications, herbals and other supplements with you to your doctor s visit. Patients and families are reminded to discard old lists and to update any records with all medication providers or retail pharmacies. Education Materials Chronic Pain Pain serves an important role. It lets you know something is wrong that needs your attention. When the body heals, pain normally goes away. When pain lasts longer than 6 months, it is called chronic pain. This is pain that is present even after the body has healed. Chronic pain can cause mood problems and get in the way of your relationships and your daily life. A number of conditions can cause chronic pain. Some of the more common include: Previous surgery An old injury Infection Diseases such as diabetes Nerve damage Back injury Arthritis Migraine or other headaches Fibromyalgia Cancer Depression and stress can make chronic pain symptoms worse. In some cases, a cause for the pain can't be found. Treatment Treatment can greatly reduce pain. In many cases, pain can become less severe, occur less often, and interfere less with your daily life. Chronic pain is often treated with a combination of medicines, therapies, and lifestyle changes. You will work closely with your healthcare provider to find a treatment plan that works best for you. Ask your healthcare provider for a referral to a pain management specialty center. These can provide the most recent and proven pain management strategies, along with emotional support and comprehensive services. Several different types of medicines may be prescribed for chronic pain. Work with your healthcare provider to develop a medicine plan that helps manage your pain. Physical therapy can help reduce certain types of chronic pain. Occupational therapy teaches you how to do routine tasks of daily living in ways that lessen your discomfort. Counseling can help you cope better with stress and pain. Other therapies such as meditation, yoga, biofeedback, massage, and acupuncture can also help manage chronic pain. Changing certain habits can help reduce chronic pain. They include: oEating healthy oDeveloping an exercise routine oGetting enough sleep oStopping smoking and limiting alcohol use oLosing excess weight Follow-up care Follow up with your healthcare provider, or as advised. Let your healthcare provider know if your current treatment plan is working or if changes are needed. Resources For more information, contact: [place] [employer], ahma.memberclicks.net or [phone] [employer] [employer], theacpa.org or [phone] [employer] [place] [address], [place] [address]. All rights reserved. This information is not intended as a substitute for professional medical care. Always follow your healthcare professional's instructions. Knee Pain with Uncertain Cause There are several common causes for knee pain. These can include: A sprain of the ligaments that support the joint An injury to the cartilage lining of the joint Arthritis from fmom-swb-juhd or inflammation There are other causes as well. There may also be swelling, reduced movement of the knee joint, and pain with walking. A definite diagnosis will still need to be made. If your symptoms don't improve, further follow-up and testing may be needed. Home care Stay off the injured leg as much as possible until pain improves. Apply an ice pack over the injured area for 15 to 20 minutes every 3 to 6 hours. You should do this for the first 24 to 48 hours. You can make an ice pack by filling a plastic bag that seals at the top with ice cubes and then wrapping it with a thin towel. Continue to use ice packs for relief of pain and swelling as needed. As the ice melts, be careful not to get your wrap, splint, or cast wet. After 48 hours, apply heat (warm shower or warm bath) for 15 to 20 minutes several times a day, or alternate ice and heat. If you have to wear a fomz-cka-dtfe knee brace, you can open it to apply the ice pack, or heat, directly to the knee. Never put ice directly on the skin. Always wrap the ice in a towel or other type of cloth. You may use lubm-tue-igvkpar pain medicine to control pain, unless another pain medicine was prescribed. If you have chronic liver or kidney disease or ever had a stomach ulcer or gastrointestinal bleeding, talk with your healthcare provider before using these medicines. If crutches or a walker have been recommended, don't put weight on the injured leg until you can do so without pain. Check with your healthcare provider before returning to sports or full work duties. If you have a yaok-rhm-caqm knee brace, you can remove it to bathe and sleep, unless told otherwise. Follow-up care Follow up with your healthcare provider as advised. This is usually within 1 to 2 weeks. If X-rays were taken, you will be told of any new findings that may affect your care Call 911 Call 911 if you have: Shortness of breath Chest pain When to seek medical advice Call your healthcare provider right away if any of these occur: Toes or foot becomes swollen, cold, blue, numb, or tingly Pain or swelling spreads over the knee or calf Warmth or redness appears over the knee or calf Other joints become painful Rash appears Fever of 100.4 F (38 C) or higher, or as directed by your healthcare provider Maximiliano [id number] [employer]. [address] [place] [address], [place] [address]. All rights reserved. This information is not intended as a substitute for professional medical care. Always follow your healthcare professional's instructions. Osteoarthritis Osteoarthritis (also called degenerative joint disease) happens when the cartilage in a joint becomes damaged and worn. This may be due to age, wear and tear, overuse of the joint, or other problems. Osteoarthritis can affect any joint. But it is most common in hands, knees, spine, hips, and feet. Symptoms include joint stiffness, pain, and swelling. Home care When a joint is more sore than usual, rest it for a day or two. Heat can help relieve stiffness. Take a hot bath or apply a heating pad for up to 30 minutes at a time. If symptoms are worse in the morning, using heat just after awakening can help relax the muscle and soothe the joints. Ice helps relieve pain and swelling. It is often used after activity. Use a cold pack wrapped in a thin cloth on the joint for 10 to 15 minutes at a time. Alternating hot and cold can also help relieve pain. Try this for 20 minutes at a time, several times per day. Exercise helps prevent the muscles and ligaments around the joint from becoming weak. It also helps maintain function in the joint. Be as active as you can. Talk to your healthcare provider about what activity program is best for you. Excess weight puts a lot of extra strain on weight-bearing joints of the lower back, hips, knees, feet and ankles. If you are overweight, talk to your healthcare provider about a safe and effective weight loss program. Use anti-inflammatory medicines as prescribed for pain. This includes acetaminophen or NSAIDs such as ibuprofen or naproxen. If needed, topical or injected medicines may be recommended. Talk to your healthcare provider if these options are not enough to manage your pain. Talk with your healthcare provider about devices that might help improve your function and reduce pain. Follow-up care Follow up with your healthcare provider as advised by our staff. When to seek medical advice Call your healthcare provider right away if any of these occur: Redness or swelling of a painful joint Discharge or pus from a painful joint Fever of 100.4 F (38 C) or higher, or as directed by your healthcare provider Worsening joint pain Decreased ability to move the joint or bear weight on the joint [id number] [employer]. [address] [place] [address], [place] [address]. All rights reserved. This information is not intended as a substitute for professional medical care. Always follow your healthcare professional's instructions. Additional Information VACCINATE! IT SAVES LIVES! Members of the community who have not yet received the COVID-19 vaccine and would like to receive it can visit one of [facility] vaccine clinics. There are many vaccine clinic locations within the [facility]. For locations and available times, please visit www.gettheot.coronavirus.[place].or g. It is important to note that some COVID mobile vaccine clinics are held outdoors and may be canceled in rainy or stormy conditions. To learn more about pediatric vaccinations (ages 5-11), we invite you to visit the [employer] webpage. https://www.[facility].org/pag es/0055-Rcwzh-Jjyrrilfuno-Frequent jm-Gfvvu-Bekiqgleo.html To learn more about the COVID-19 vaccine, we invite you to visit the [employer] website for a list of frequently asked questions. https://rene.org/assets/Patient z-xzc-Jvyeykez/jmxna-Gjngmoa-Imhxi ently_Asked-Questions.pdf [employer] Patient Portal Access Instructions: Stay connected with your healthcare team and access your personal medical information anytime with the [facility] Patient Portal. If you would like a full copy of your medical records please contact the [facility] Medical Records Department Saturday through Saturday between 8a.m. and 4:30p.m. Please follow the directions below to access the portal: 1.Access the email account you provided upon registration to the [facility].2.Look for an invitation email from [facility].3.Open the email and access the invitation link: Accept Invitation to [facility].Fill in the required bernardo to create your account. Sign into [email or web address] with your username and password that you created in the above steps to stay up to date. You can then view a summary of results, a summary of your visits, and the ability to download your summaries to your computer or send the information securely to a physician. Remember that your healthcare information is confidential, so carefully consider who you will allow to register on the [employer] Patient Portal for access to your information. You can also access the [employer] Patient Portal on the [employer] myranda. Simply click on Health Records under Health Data and then click on the [email or web address] logo. HOW TO SAFELY DISPOSE OF PRESCRIPTION MEDICATIONS Please use one of the following methods to safely dispose of your unused medications. 1.Use a drug disposal kit: the drug disposal pouch allows you to safely discard your old and unused drugs. Ask your nurse to give you one when you are discharged.2.Visit a local take-back location: Many local pharmacies and police departments have programs that collect old and unwanted prescription drugs. Call your local pharmacy or go to http://[employer].HealthcareSource/8I1Kn7v to find one close to you.3.Make use of household items: Use cat litter or old coffee grounds to dispose medications if other options are not available. Mix your drugs with these household products, seal them in an airtight container and throw it into the garbage. Call [facility]: [phone] to be sure your drugs can be disposed of in this way. Some medicines may require a different approach.4.Never flush your medications down the toilet. IF YOU HAVE BEEN PRESCRIBED AN OPIOIDS FOR PAIN If you have been prescribed an opioid (such as hydrocodone, oxycodone or morphine), it is critical to understand the possible side effects and risks of opioid pain medications. Even when taken as directed, opioids can have several side effects including: Tolerance, meaning you might need to take more of a medication for the same pain relief. Nausea, vomiting and/or constipation. Sleepiness, dizziness, dry mouth, confusion, depression or itching. Physical dependence, meaning you have withdrawal symptoms when a medication is stopped ? this can develop within a few days. KNOW YOUR RESPONSIBILITIES It is important to know exactly how much and how often to take the opioid pain medications you are prescribed. Never take opioids in higher amounts or more often than prescribed. Do not combine opioids with alcohol or other drugs that cause drowsiness, such as benzodiazepines, also known as benzos, including diazepam and alprazolam, muscle relaxants or sleep aids. Never sell or share prescription opioids. This is illegal. Store opioids in a secure place and out of reach of others (including children, family, friends and visitors). The last page(s) of this document has been signed and retained as a CHART COPY Signatures Patient Education Materials Chronic Pain Knee Pain of Uncertain Cause Osteoarthritis Medication Leaflets My discharge plan and instructions have been reviewed and explained to me and I,HALLEY SANCHEZ understand my current condition and have read and understand these discharge instructions. I have received a written copy of the plan/instructions. If I have questions, I am aware that I should contact my doctor. Patient/Hoop Riveter Signature: Date/Time: Relationship to Patient: ___ Witness Name/Signature: Date/Time: [facility] 07-02-2022 Note ORIGINAL EXAMINATION: 2 x-ray views of the left femur 07/02/2022 5:41 pm COMPARISON: None. HISTORY: ORDERING SYSTEM PROVIDED HISTORY: Reason for Exam: pain FINDINGS: No fracture identified. No gross malalignment at the hip or knee. Enthesophytes seen in the left pelvis. There is mild to moderate spurring of the left hip. Tricompartmental degenerative changes are noted. IMPRESSION: Degenerative changes in the knee and hip. No acute findings of the left femur Interpreted by: Oli Connell MD Preliminary Report By: Oli Connell MD Electronically signed By Oli Connell MD Dictated Date: 07/02/2022 5:45:24 PM Prelim Date: 07/02/2022 5:46:28 PM Sign Date: 07/02/2022 5:46:28 PM Ordering Provider: MAMADOU CONNELLY [facility] 07-02-2022 Note ORIGINAL EXAMINATION: THREE XRAY VIEWS OF THE LEFT KNEE07/02/2022 5:40 pm COMPARISON: None. HISTORY: ORDERING SYSTEM PROVIDED HISTORY: Reason for Exam: Pain FINDINGS: No acute fracture or dislocation is identified. No joint effusion is seen. Tricompartmental joint space loss and spurring visualized. Findings are most severe in the lateral tibiofemoral compartment and patellofemoral compartment. There is no radiopaque foreign body. IMPRESSION: Moderate to severe tricompartmental degenerative changes Interpreted by: Oli Connell MD Preliminary Report By: Oli Connell MD Electronically signed By Oli Connell MD Dictated Date: 07/02/2022 5:44:31 PM Prelim Date: 07/02/2022 5:45:16 PM Sign Date: 07/02/2022 5:45:16 PM Ordering Provider: [facility] 07-02-2022 Note ORIGINAL EXAMINATION: 2 x-ray views of the left femur 07/02/2022 5:41 pm COMPARISON: None. HISTORY: ORDERING SYSTEM PROVIDED HISTORY: Reason for Exam: pain FINDINGS: No fracture identified. No gross malalignment at the hip or knee. Enthesophytes seen in the left pelvis. There is mild to moderate spurring of the left hip. Tricompartmental degenerative changes are noted. IMPRESSION: Degenerative changes in the knee and hip. No acute findings of the left femur Interpreted by: Oli Connell MD Preliminary Report By: Oli Connell MD Electronically signed By Oli Connell MD Dictated Date: 07/02/2022 5:45:24 PM Prelim Date: 07/02/2022 5:46:28 PM Sign Date: 07/02/2022 5:46:28 PM Ordering Provider: [facility] 07-02-2022 Note ORIGINAL EXAMINATION: THREE XRAY VIEWS OF THE LEFT KNEE07/02/2022 5:40 pm COMPARISON: None. HISTORY: ORDERING SYSTEM PROVIDED HISTORY: Reason for Exam: Pain FINDINGS: No acute fracture or dislocation is identified. No joint effusion is seen. Tricompartmental joint space loss and spurring visualized. Findings are most severe in the lateral tibiofemoral compartment and patellofemoral compartment. There is no radiopaque foreign body. IMPRESSION: Moderate to severe tricompartmental degenerative changes Interpreted by: Oli Connell MD Preliminary Report By: Oli Connell MD Electronically signed By Oli Connell MD Dictated Date: 07/02/2022 5:44:31 PM Prelim Date: 07/02/2022 5:45:16 PM Sign Date: 07/02/2022 5:45:16 PM Ordering Provider: MAMADOU CONNELLY [facility] 02-22-2022 History of Present illness Narrative Osbaldo Rodriguez MD Department of Orthopaedics Orthopaedics [address] [facility] [address] Dept: [phone] Dept February 22, 2022 CHIEF COMPLAINT: New and Pain of the Left Knee HPI Patient here today for left knee pain. She has been using voltaren gel with some relief, but it does not last. She has had pain for many years after having a right achilles tendon repair and having to depend more on the left leg. ASSESSMENT: M25.562, G89.29 Chronic pain of left knee (primary encounter diagnosis) M17.12 Primary osteoarthritis of left knee PLAN: She has significant arthritis in both knees. She has had cortisone and viscosupplementation in the past which has not been helpful. She cannot take NSAIDs as she is already had a gastric bypass surgery. Her BMI is significant and runs a high risk for surgical intervention. I would think her potential options for some improvement or pain relief would be evaluation for geniculate block which she will talk with her pain management doctor about. She is certainly welcome to see one of our joint reconstruction surgeons who may be more comfortable with her higher BMI situation. FOLLOW UP INSTRUCTIONS: As above Ms. Halely Sanchez was advised as to contrast therapies and/or to take analgesics/anti-inflammatories as needed and all contraindications were reviewed. OBJECTIVE: Ms. Halley Sanchez is a pleasant 66 year old in no apparent distress. Gen:LMP 04/07/2011 nl development, severely morbidly obese , no deformities ENT: Normocephalic, normal hearing, moist mucosa CV: Pulses:DP/PT= 2+ and symmetric, capillary refill < 2 secs, no peripheral edema/varicosities Skin: no rash, bruising or lesions. Good turgor. Psych: cooperative and appropriate, alert and oriented x 3, good mood and affect. Musculoskeletal: Body habitus limits exam but she does have a bit of antalgia with bilateral knees, left worse than right. She has tenderness to palpation over the lateral joint line in the left and medial joint line on the right. Motion is lacking about 5 degrees of terminal extension in both knees and 120 degrees of flexion. She has patellar crepitance palpable. Neurovascular exam is intact grossly. IMAGING: IMPRESSION: No acute fracture or dislocation. Community Aide: PSCB Transcribe Date/Time: Dec 26 2021 6:47P Dictated by : STEFANIE PINK MD This examination was interpreted and the report reviewed and electronically signed by: STEFANIE PINK MD on Dec 26 2021 6:51PM EST Results-Findings * * *Final Report* * * DATE OF EXAM: Dec 26 2021 6:33PM WOX 5202 - XR KNEE 4V AP/PA BOTH+LAT/RICHY LT / PROCEDURE REASON: Pain of left lower extremity due to injury * * * * Physician Interpretation * * * * BILATERAL KNEE X-RAY SERIES HISTORY: Pain of left lower extremity due to injury TECHNIQUE: 4 views of the left knee and 3 views of the right knee COMPARISON: None available. RESULT: No fracture, dislocation or destructive changes. Moderate tricompartmental degenerative changes of the right knee. Moderate lateral and mild medial and patellofemoral compartment degenerative changes of the left knee. 1 cm calcification projecting the anterior left knee joint may represent soft tissue calcification versus intra-articular body. Supporting Subjective Information Below: Past Medical History: PAST MEDICAL HISTORY Diagnosis Date Acute gastritis without mention of hemorrhage Breast cancer, stage 1 (HCC) 11/25/2009 Carcinoma in situ of breast [id number] left breast Chronic rhinitis 03/15/2005 Complex endometrial hyperplasia without atypia Congenital pes planus 01/07/2012 DJD (degenerative joint disease) of knee 03/02/2011 [facility] 12/27/2011, moderate osteoarthritis in left knee, Synvisc injections every 6 months. ER+ (estrogen receptor positive status) 11/25/2009 Hiatal hernia 2002 Left knee pain 12/28/2011 [facility] 12/27/2011, moderate osteoarthritis in left knee, Synvisc injections every 6 months. Lumbar radicular syndrome 04/25/2009 Pain Management: Dr. Quesada. Major Depressive Disorder, Recurrent, Severe 11/26/2003 Malignant neoplasm of breast (female), unspecified site 03/15/2005 DCIS left breast Fe. 2001 Migraine without aura, without mention of intractable migraine without mention of status migrainosus 07/25/2006 Morbid obesity (HCC) 03-11-09 stated BMI 60.8 Ht: 63 Wt: 344 lbs Obstructive sleep apnea (adult) (pediatric) 06/29/2009 Mild LIA. Other and unspecified disorders of eating 11/26/2003 BINGE EATING DISORDER Other diseases of trachea and bronchus, not elsewhere classified 03/15/2005 Reactive Airway SEROMA, POST OP 10/14/2006 Unspecified asthma(493.90) [id number] Vitamin D deficiency 04/26/2009 Past Surgical History: PAST SURGICAL HISTORY Procedure Laterality Date APPENDECTOMY 06/24/1997 incidental at time of GBP in [place] BIOPSY BREAST OPEN INCISIONAL Bx of breast, incisional, left CHOLECYSTECTOMY 06/24/1997 in conjunction with GBP in [place] COLONOSCOPY FLX DX W/COLLJ SPEC WHEN PFRMD 03/26/2012 Colonoscopy EGD TRANSORAL BIOPSY SINGLE/MULTIPLE 01/10/2010 post gastric bypass, minimal inflammation GASTRIC RSTCV W/BYP W/SHORT LIMB 150 CM/< 06/24/1997 [place], incidental appendectomy, choelcystectomy, liver biopsy I&D HEMATOMA SEROMA/FLUID COLLECTION 11/08/2006 Right chest seroma excised LEFT HEART CATH,PERCUTANEOUS 06/27/2010 Cardiac cath, L heart MASTECTOMY PARTIAL 06/24/2001 left breast, completed radiation MASTECTOMY,SIMPLE 01/04/2006 left breast with SLND MASTECTOMY,SIMPLE 01/04/2006 right breast REPAIR OF ACHILLES TENDON 09/16/2009 Right heel REPAIR OF ACHILLES TENDON 10/07/2009 Redo dehiscence. repair of hiatal hernia 06/24/2000 VAGINAL HYSTERECTOMY UTERUS 250 GM/< 05/28/2011 still has ovaries Family History: FAMILY HISTORY Problem Relation Age of Onset Heart Mother 58 yrs old, CHF Stroke Father 84 yrs old, CVA Alzheimer's Disease Father Breast Cancer Sister dx age 35 Heart Sister CHF Heart Brother 3 NH's, Pacemaker Stroke Brother other (Tuberculosis) Brother tested positive Social History: Social History Tobacco Use Smoking status: Never Smokeless tobacco: Never Vaping Use Vaping Use: Never used Substance Use Topics Alcohol use: No Drug use: No Medications: Current Outpatient Medications Medication Sig diclofenac (VOLTAREN ARTHRITIS PAIN) 1 % topical gel Apply 2 g to affected area four times daily. albuterol HFA (PROAIR HFA) 90 mcg/actuation inhaler inhale 2 puffs by mouth every 4 hours if needed for wheezing or shortness of breath trospium (SANCTURA) 20 mg tablet Take 1 tablet by mouth twice daily. Promethazine-DM (PHENERGAN-DM) 6.25-15 mg/5 mL syrup Take 5 mL by mouth four times daily as needed for cough. guaiFENesin (MUCINEX) 600 mg 12 hr tablet Take 2 tablets by mouth twice daily. ondansetron orally disintegrating (ZOFRAN ODT) 4 mg disintegrating tablet Take 1 tablet by mouth every 8 hours as needed for nausea/vomiting. benzocaine-menthol (CEPACOL) 15-2.6 mg lozg lozenge Take 1 Lozenge by mouth every 2 hours as needed. (Patient not taking: Reported on 02/22/2022) benzonatate (TESSALON PERLES) 100 mg capsule Take 1 capsule by mouth three times daily as needed. (Patient not taking: Reported on 02/22/2022) albuterol HFA (PROAIR HFA) 90 mcg/actuation inhaler Inhale 2 Puffs as instructed every 6 hours as needed. fluticasone (FLONASE) 50 mcg/actuation nasal spray Use 2 Sprays in each nostril once daily. Rinse mouth after use. albuterol sulfate (PROAIR RESPICLICK) 90 mcg/actuation aepb Inhale 1 Puff as instructed every 4 hours as needed. (Patient not taking: Reported on 02/22/2022) Ferrous Gluconate (FERGON) 324 mg (38 mg iron) tablet Take 1 tablet by mouth once daily. hydrOXYzine HCl (ATARAX) 25 mg tablet Take 1 tablet by mouth twice daily. albuterol HFA (PROVENTIL HFA, VENTOLIN HFA) 90 mcg/actuation inhaler Inhale 2 Puffs as instructed every 4 hours as needed. mometasone (NASONEX) 50 mcg/actuation nasal spray Use 2 Sprays in the nose once daily. ergocalciferol, vitamin D2, (VITAMIN D) 50,000 unit capsule Take 1 capsule by mouth twice a week. Heating Pads pads 1 Each once daily. use one XL heating once daily for aches and pains. pediatric multivitamins with iron chewable tablet 1 tablet once daily. Take by mouth with meal. No current facility-administered medications for this visit. Allergies: Cephalexin, Flagyl [Metronidazole], and Morphine ROS: General (negative for fatigue, malaise, weight loss/gain) HEENT (negative for headache, earache, recent vision changes, sinus pain, sore throat) Respiratory (no recent shortness of breath, hemoptysis) CV (negative for chest tightness, palpitations) Musculoskeletal (see HPI) Psych (no depression, anxiety) REFERRING PHYSICIAN: . Halley Sanchez was referred to me for consultation by the following physician. This consultation note will be sent to the following physician by either mail or electronic medical record. SELF Catrachita Ham MD [id number] [facility] [id number] Osbaldo Rodriguez MD documented in this encounter [facility] 02-09-2022 Note HNO ID: [id number] Author: Jennifer Doran MD Service: ? Author Type: Physician Type: Progress Notes Filed: 02/09/2022 11:09 AM Note Text: Female Pelvic Medicine AND Reconstructive Surgery Consult CHIEF COMPLAINT: Halley Sanchez is a 66 year old female who presents for consultation requested by Mahsa Snell APRN.CNP for an opinion regarding OAB. HISTORY OF PRESENT ILLNESS: Pt reports she has a constant odor. Her bladder is always leaking. If she has to use the bathroom, she has strong urgency and starts wetting her clothing. Sometimes she has accidents wetting her clothing 4-5 times/day. 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 She has a previous history of an abnormal mammogram with breast cancer diagnosed in 2000. LMP: Patient's last menstrual period was 04/07/2011.; Menopause post: Menstrual history: NA; Deliveries: None History of third or fourth degree laceration: NA Weight of largest baby: NA Sexual function Sexually active: yes, painful PFDI-20 Do you: Usually experience pressure in the lower abdomen? Yes, moderately bothersome (3) Usually experience heaviness or dullness in the pelvic area? No (0) Usually have a bulge or something falling out that you can see or feel in your vaginal area? No (0) Ever have to push on the vagina or around the rectum to have or complete a bowel movement? No (0) Usually experience a feeling of incomplete bladder emptying? Yes, quite a bit bothersome (4) Ever have to push up on a bulge in the vaginal area with your fingers to start or complete urination? No (0) Feel you need to strain too hard to have a bowel movement? Yes, moderately bothersome (3) Feel you have not completely emptied your bowels at the end of a bowel movement? No (0) Usually lose stool beyond your control if your stool is well formed? No (0) Usually lose stool beyond your control if your stool is loose? No (0) Usually lose gas from the rectum beyond your control? No (0) Usually have pain when you pass your stool? No (0) Experience a strong sense of urgency and have to villalobos to the bathroom to have a bowel movement? No (0) Does part of your bowel ever pass through the rectum and bulge outside during or after a bowel movement? No (0) Usually experience frequent urination? Yes, quite a bit bothersome (4) Usually experience urine leakage associated with a feeling of urgency, that is, a strong sensation of needing to go to the bathroom? Yes, quite a bit bothersome (4) Usually experience urine leakage related to coughing, sneezing or laughing? No (0) Usually experience small amounts of urine leakage (that is, drops)? Yes, moderately bothersome (3) Usually experience difficulty emptying your bladder? No (0) Usually experience pain or discomfort in the lower abdomen or genital region? Yes, somewhat bothersome (2) Do you have pain associated with your prolapse (not pressure or fullness) No PAST SURGICAL HISTORY Procedure Laterality Date APPENDECTOMY 06/24/1997 incidental at time of GBP in [place] BIOPSY BREAST OPEN INCISIONAL Bx of breast, incisional, left CHOLECYSTECTOMY 06/24/1997 in conjunction with GBP in [place] COLONOSCOPY FLX DX W/COLLJ SPEC WHEN PFRMD 03/26/2012 Colonoscopy EGD TRANSORAL BIOPSY SINGLE/MULTIPLE 01/10/2010 post gastric bypass, minimal inflammation GASTRIC RSTCV W/BYP W/SHORT LIMB 150 CM/< 06/24/1997 [place], incidental appendectomy, choelcystectomy, liver biopsy [facility] HEMATOMA SEROMA/FLUID COLLECTION 11/08/2006 Right chest seroma excised LEFT HEART CATH,PERCUTANEOUS 06/27/2010 Cardiac cath, L heart MASTECTOMY PARTIAL 06/24/2001 left breast, completed radiation MASTECTOMY,SIMPLE 01/04/2006 left breast with SLND MASTECTOMY,SIMPLE 01/04/2006 right breast REPAIR OF ACHILLES TENDON 09/16/2009 Right heel REPAIR OF ACHILLES TENDON 10/07/2009 Redo dehiscence. repair of hiatal hernia 06/24/2000 VAGINAL HYSTERECTOMY UTERUS 250 GM/< 05/28/2011 still has ovaries PAST MEDICAL HISTORY Diagnosis Date Acute gastritis without mention of hemorrhage Breast cancer, stage 1 (HCC) 11/25/2009 Carcinoma in situ of breast [id number] left breast Chronic rhinitis 03/15/2005 Complex endometrial hyperplasia without atypia Congenital pes planus 01/07/2012 DJD (degenerative joint disease) of knee 03/02/2011 Dr Cedeno, [facility] 12/27/2011, moderate osteoarthritis in left knee, Synvisc injections every 6 months. ER+ (estrogen receptor positive status) 11/25/2009 Hiatal hernia 2002 Left knee pain 12/28/2011 [facility] 12/27/2011, moderate osteoarthritis in left knee, Synvisc injections every 6 months. Lumbar radicular syndrome 04/25/2009 Pain Management: Dr. Quesada. Major Depress (more content not included)... [facility] 02-09-2022 Instructions Jennifer Doran MD - 02/09/2022 11:02 AM EDT Follow up with Terrence Ferreira NP in 1-2 months for medication check Start Sanctura for bladder urgency. It will take up to 4 weeks for the medication to help your bladder. The most common side effects are constipation and dry mouth. If you develop constipation, use benefiber supplement as instructed below. If the side effects are intolerable, call and we will switch to a different medication. If the medication is very expensive, call and we can switch to a different medication. Benefiber to regulate the bowels. Begin with one tablespoon in a glass of water daily. Continue this for at least one week and then reassess your symptoms. If constipation still present, increase dose to one tablespoon in a glass of water twice daily. If stools are loose, decrease to half tablespoon daily. Continue to adjust until the correct dose is reached to allow for soft bowel movements that pass without straining. documented in this encounter [facility] 02-09-2022 History of Present illness Narrative Female Pelvic Medicine & Reconstructive Surgery Consult CHIEF COMPLAINT: Halley Sanchez is a 66 year old female who presents for consultation requested by Mahsa Snell APRN.CNP for an opinion regarding OAB. HISTORY OF PRESENT ILLNESS: Pt reports she has a constant odor. Her bladder is always leaking. If she has to use the bathroom, she has strong urgency and starts wetting her clothing. Sometimes she has accidents wetting her clothing 4-5 times/day. 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 She has a previous history of an abnormal mammogram with breast cancer diagnosed in 2000. LMP: Patient's last menstrual period was 04/07/2011.; Menopause post: Menstrual history: NA; Deliveries: None History of third or fourth degree laceration: NA Weight of largest baby: NA Sexual function Sexually active: yes, painful PFDI-20 Do you: Usually experience pressure in the lower abdomen? Yes, moderately bothersome (3) Usually experience heaviness or dullness in the pelvic area? No (0) Usually have a bulge or something falling out that you can see or feel in your vaginal area? No (0) Ever have to push on the vagina or around the rectum to have or complete a bowel movement? No (0) Usually experience a feeling of incomplete bladder emptying? Yes, quite a bit bothersome (4) Ever have to push up on a bulge in the vaginal area with your fingers to start or complete urination? No (0) Feel you need to strain too hard to have a bowel movement? Yes, moderately bothersome (3) Feel you have not completely emptied your bowels at the end of a bowel movement? No (0) Usually lose stool beyond your control if your stool is well formed? No (0) Usually lose stool beyond your control if your stool is loose? No (0) Usually lose gas from the rectum beyond your control? No (0) Usually have pain when you pass your stool? No (0) Experience a strong sense of urgency and have to villalobos to the bathroom to have a bowel movement? No (0) Does part of your bowel ever pass through the rectum and bulge outside during or after a bowel movement? No (0) Usually experience frequent urination? Yes, quite a bit bothersome (4) Usually experience urine leakage associated with a feeling of urgency, that is, a strong sensation of needing to go to the bathroom? Yes, quite a bit bothersome (4) Usually experience urine leakage related to coughing, sneezing or laughing? No (0) Usually experience small amounts of urine leakage (that is, drops)? Yes, moderately bothersome (3) Usually experience difficulty emptying your bladder? No (0) Usually experience pain or discomfort in the lower abdomen or genital region? Yes, somewhat bothersome (2) Do you have pain associated with your prolapse (not pressure or fullness) No PAST SURGICAL HISTORY Procedure Laterality Date APPENDECTOMY 06/24/1997 incidental at time of GBP in [place] BIOPSY BREAST OPEN INCISIONAL Bx of breast, incisional, left CHOLECYSTECTOMY 06/24/1997 in conjunction with GBP in [place] COLONOSCOPY FLX DX W/COLLJ SPEC WHEN PFRMD 03/26/2012 Colonoscopy EGD TRANSORAL BIOPSY SINGLE/MULTIPLE 01/10/2010 post gastric bypass, minimal inflammation GASTRIC RSTCV W/BYP W/SHORT LIMB 150 CM/< 06/24/1997 [place], incidental appendectomy, choelcystectomy, liver biopsy I&D HEMATOMA SEROMA/FLUID COLLECTION 11/08/2006 Right chest seroma excised LEFT HEART CATH,PERCUTANEOUS 06/27/2010 Cardiac cath, L heart MASTECTOMY PARTIAL 06/24/2001 left breast, completed radiation MASTECTOMY,SIMPLE 01/04/2006 left breast with SLND MASTECTOMY,SIMPLE 01/04/2006 right breast REPAIR OF ACHILLES TENDON 09/16/2009 Right heel REPAIR OF ACHILLES TENDON 10/07/2009 Redo dehiscence. repair of hiatal hernia 06/24/2000 VAGINAL HYSTERECTOMY UTERUS 250 GM/< 05/28/2011 still has ovaries PAST MEDICAL HISTORY Diagnosis Date Acute gastritis without mention of hemorrhage Breast cancer, stage 1 (HCC) 11/25/2009 Carcinoma in situ of breast [id number] left breast Chronic rhinitis 03/15/2005 Complex endometrial hyperplasia without atypia Congenital pes planus 01/07/2012 DJD (degenerative joint disease) of knee 03/02/2011 Dr Cedeno, [facility] 12/27/2011, moderate osteoarthritis in left knee, Synvisc injections every 6 months. ER+ (estrogen receptor positive status) 11/25/2009 Hiatal hernia 2002 Left knee pain 12/28/2011 [facility] 12/27/2011, moderate osteoarthritis in left knee, Synvisc injections every 6 months. Lumbar radicular syndrome 04/25/2009 Pain Management: Dr. Quesada. 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 Other and unspecified disorders of eating 11/26/2003 BINGE EATING DISORDER Other diseases of trachea and bronchus, not elsewhere classified 03/15/2005 Reactive Airway SEROMA, POST OP 10/14/2006 Unspecified asthma(493.90) [id number] Vitamin D deficiency 04/26/2009 FAMILY HISTORY Problem Relation Age of Onset Heart Mother 58 yrs old, CHF Stroke Father 84 yrs old, CVA Alzheimer's Disease Father Breast Cancer Sister dx age 35 Heart Sister CHF Heart Brother 3 NH's, Pacemaker Stroke Brother other (Tuberculosis) Brother tested positive Current Outpatient Medications Medication Sig diclofenac (VOLTAREN ARTHRITIS PAIN) 1 % topical gel Apply 2 g to affected area four times daily. Promethazine-DM (PHENERGAN-DM) 6.25-15 mg/5 mL syrup Take 5 mL by mouth four times daily as needed for cough. guaiFENesin (MUCINEX) 600 mg 12 hr tablet Take 2 tablets by mouth twice daily. ondansetron orally disintegrating (ZOFRAN ODT) 4 mg disintegrating tablet Take 1 tablet by mouth every 8 hours as needed for nausea/vomiting. benzocaine-menthol (CEPACOL) 15-2.6 mg lozg lozenge Take 1 Lozenge by mouth every 2 hours as needed. benzonatate (TESSALON PERLES) 100 mg capsule Take 1 capsule by mouth three times daily as needed. albuterol HFA (PROAIR HFA) 90 mcg/actuation inhaler Inhale 2 Puffs as instructed every 6 hours as needed. fluticasone (FLONASE) 50 mcg/actuation nasal spray Use 2 Sprays in each nostril once daily. Rinse mouth after use. albuterol sulfate (PROAIR RESPICLICK) 90 mcg/actuation aepb Inhale 1 Puff as instructed every 4 hours as needed. Ferrous Gluconate (FERGON) 324 mg (38 mg iron) tablet Take 1 tablet by mouth once daily. hydrOXYzine HCl (ATARAX) 25 mg tablet Take 1 tablet by mouth twice daily. albuterol HFA (PROVENTIL HFA, VENTOLIN HFA) 90 mcg/actuation inhaler Inhale 2 Puffs as instructed every 4 hours as needed. mometasone (NASONEX) 50 mcg/actuation nasal spray Use 2 Sprays in the nose once daily. albuterol HFA (PROAIR HFA) 90 mcg/actuation inhaler inhale 2 puffs by mouth every 4 hours if needed for wheezing or shortness of breath ergocalciferol, vitamin D2, (VITAMIN D) 50,000 unit capsule Take 1 capsule by mouth twice a week. Heating Pads pads 1 Each once daily. use one XL heating once daily for aches and pains. pediatric multivitamins with iron chewable tablet 1 tablet once daily. Take by mouth with meal. trospium (SANCTURA) 20 mg tablet Take 1 tablet by mouth twice daily. No current facility-administered medications for this visit. 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 Skin: Negative for rash or itching. Psychiatric: Negative for depression. Reports normal stress. Neurologic: Negative for new headache or syncope. Endocrine: sweating, heat intolerance Cardiovascular: Negative for recent chest pain, chest pressure or chest discomfort. Hematologic/Lymphatic: Negative for easy bruising or excessive bleeding. Respiratory: Negative for wheezing, shortness of breath or persistent cough. Gastrointestinal: Negative for persistent abdominal pain. Negative for anorexia, persistent nausea and/or vomiting. Musculoskeletal: muscle pain I have confirmed and edited as necessary, the PFSH and ROS obtained by others. Jennifer Doran MD Flying Instructor offered: Patient accepts, visit chaperoned by Rojelio Avery LPN. OBJECTIVE: BP 128/68 Ht 5' 2.5 (1.59m) Wt 349 lb (158.3kg) LMP 04/07/2011 BMI 62.78 kg/(m^2). Physical Exam Constitutional: BMI - Body mass index is 62.82 kg/m . General Appearance: Well appearing, alert, in no acute distress, well-hydrated, well nourished. and Morbidly obese Skin: Skin color, texture, turgor normal, no suspicious rashes or lesions Lungs: Unlabored on room air Heart: Not examined Breasts: Deferred Abdomen: Abdomen soft, non-tender, No palpable masses or organomegaly Pelvic: External Genitalia: No lesions or other abnormalities Vagina: [place] - Normal support ; [place] - Normal support Cervix / [place] - Normal support POP-Q: Prolapse Noted: No Vaginal epithelium: Atrophic Cervix: Absent Urethra: Normal, Supine cough stress test negative Bimanual: No tenderness, No palpable masses Rectovaginal: Deferred Levator Ani Contraction: 1+ Levator Ani Tone: increased Levator Ani Tenderness: Yes, bilateral Saddle Sensory Exam (S2-4): normal The urethra was prepped with betadine. A lubricated 14F catheter was inserted and the postvoid residual urine was collected. The PVR was 75 ml. Urine dip - straight cath: neg IMPRESSION: Halley Sanchez is a 66 year old female with OAB, h/o gastric bypass PLAN: 1. OAB (overactive bladder) - We discussed the etiology and management of urgency urinary incontinence, urinary urgency and frequency (also known as overactive bladder). I described our care pathway for this problem. I reviewed 1st and 2nd line treatment options including lifetstyle modifications, behavioral therapy, bladder retraining +/- physical therapy, and medications. I also described our 3rd line options including PTNM, sacral neuromodulation, and Botox and the R/B of each option. - After reviewing all of the options and answering her questions, she is interested in trying an alternative OAB medication. If symptoms still remain refractory, she is interested in PTNM. - Symptoms have been previously refractory to oxybutynin and Detrol - trospium (SANCTURA) 20 mg tablet; Take 1 tablet by mouth twice daily. Dispense: 180 tablet; Refill: 3 2. History of gastric bypass - Recommended immediate release formulation for OAB medication, avoid extended release formulations My final recommendations will be communicated back to the requesting physician by way of shared Medical record or letter via [place] mail. Jennifer Doran MD documented in this encounter [facility] 12-26-2021 History of Present illness Narrative Images from the original note were not included. Subjective HPI HPI Halley Sanchez is a 66 year old female who presents today for CC of right knee pain and right great toe pain after fall 4 days ago. Has tried otc medication for relief. Symptoms are worsened by walking. Denies history of surgery or injury to left lower extremity. Denies numbness/tingling of right lower extremity. .Patient presents with: Knee Pain: and left big toe pain, patient fell on PAST MEDICAL HISTORY Diagnosis Date Acute gastritis without mention of hemorrhage Breast cancer, stage 1 (HCC) 11/25/2009 Carcinoma in situ of breast [id number] left breast Chronic rhinitis 03/15/2005 Complex endometrial hyperplasia without atypia Congenital pes planus 01/07/2012 DJD (degenerative joint disease) of knee 03/02/2011 Dr Cedeno, [facility] 12/27/2011, moderate osteoarthritis in left knee, Synvisc injections every 6 months. ER+ (estrogen receptor positive status) 11/25/2009 Hiatal hernia 2002 Left knee pain 12/28/2011 Dr Cedeno, [facility] 12/27/2011, moderate osteoarthritis in left knee, Synvisc injections every 6 months. Lumbar radicular syndrome 04/25/2009 Pain Management: Dr. Quesada. 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 Other and unspecified disorders of eating 11/26/2003 BINGE EATING DISORDER Other diseases of trachea and bronchus, not elsewhere classified 03/15/2005 Reactive Airway SEROMA, POST OP 10/14/2006 Unspecified asthma(493.90) [id number] Vitamin D deficiency 04/26/2009 PAST SURGICAL HISTORY Procedure Laterality Date APPENDECTOMY 1997 incidental at time of GBP in [place] BIOPSY BREAST OPEN INCISIONAL Bx of breast, incisional, left CHOLECYSTECTOMY 1998 in conjunction with GBP in [place] COLONOSCOPY FLX DX W/COLLJ SPEC WHEN PFRMD 03/26/2012 Colonoscopy EGD TRANSORAL BIOPSY SINGLE/MULTIPLE 01/10/10 post gastric bypass, minimal inflammation GASTRIC RSTCV W/BYP W/SHORT LIMB 150 CM/< 1997 [place], incidental appendectomy, choelcystectomy, liver biopsy I&D HEMATOMA SEROMA/FLUID COLLECTION 11/08/2006 Right chest seroma excised LEFT HEART CATH,PERCUTANEOUS Cardiac cath, L heart MASTECTOMY PARTIAL 2002 left breast, completed radiation MASTECTOMY,SIMPLE 01/04/2006 left breast with SLND MASTECTOMY,SIMPLE 01/04/2006 right breast REPAIR OF ACHILLES TENDON September 16, 2009 Right heel REPAIR OF ACHILLES TENDON September Red[facility] dehiscence. repair of hiatal hernia 2000 VAGINAL HYSTERECTOMY UTERUS 250 GM/< ALLERGIES Cephalexin, Flagyl [Metronidazole], and Morphine MEDICATIONS oxybutynin ER (DITROPAN XL) 10 mg 24 hr tablet Take 1 tablet by mouth once daily. albuterol HFA (PROAIR HFA) 90 mcg/actuation inhaler Inhale 2 Puffs as instructed every 6 hours as needed. fluticasone (FLONASE) 50 mcg/actuation nasal spray Use 2 Sprays in each nostril once daily. Rinse mouth after use. albuterol sulfate (PROAIR RESPICLICK) 90 mcg/actuation aepb Inhale 1 Puff as instructed every 4 hours as needed. Ferrous Gluconate (FERGON) 324 mg (38 mg iron) tablet Take 1 tablet by mouth once daily. hydrOXYzine HCl (ATARAX) 25 mg tablet Take 1 tablet by mouth twice daily. albuterol HFA (PROVENTIL HFA, VENTOLIN HFA) 90 mcg/actuation inhaler Inhale 2 Puffs as instructed every 4 hours as needed. mometasone (NASONEX) 50 mcg/actuation nasal spray Use 2 Sprays in the nose once daily. albuterol HFA (PROAIR HFA) 90 mcg/actuation inhaler inhale 2 puffs by mouth every 4 hours if needed for wheezing or shortness of breath diclofenac sodium (VOLTAREN) 1 % topical gel Apply 1 g to affected area once daily. To knees ergocalciferol, vitamin D2, (VITAMIN D) 50,000 unit capsule Take 1 capsule by mouth twice a week. Heating Pads pads 1 Each once daily. use one XL heating once daily for aches and pains. pediatric multivitamins with iron (FLINTSTONES PLUS IRON) ORAL chewable tablet 1 tablet once daily. Take by mouth with meal. Promethazine-DM (PHENERGAN-DM) 6.25-15 mg/5 mL syrup Take 5 mL by mouth four times daily as needed for cough. guaiFENesin (MUCINEX) 600 mg 12 hr tablet Take 2 tablets by mouth twice daily. ondansetron orally disintegrating (ZOFRAN ODT) 4 mg disintegrating tablet Take 1 tablet by mouth every 8 hours as needed for nausea/vomiting. benzocaine-menthol (CEPACOL) 15-2.6 mg lozg lozenge Take 1 Lozenge by mouth every 2 hours as needed. benzonatate (TESSALON PERLES) 100 mg capsule Take 1 capsule by mouth three times daily as needed. FAMILY HISTORY Problem Relation Age of Onset Heart Mother 58 yrs old, CHF Stroke Father 84 yrs old, CVA Alzheimer's Disease Father Breast Cancer Sister dx age 35 Heart Sister CHF Heart Brother 3 NH's, Pacemaker Stroke Brother other (Tuberculosis) Brother tested positive Social History Tobacco Use Smoking status: Never Smoker Smokeless tobacco: Never Used Vaping Use Vaping Use: Never used Substance Use Topics Alcohol use: No Drug use: No ROS Objective Blood pressure 128/68, pulse 92, temperature 36.8 C (98.3 F), resp. rate 18, weight (!) 158.3 kg (349 lb), last menstrual period 04/07/2011, SpO2 97 %. Physical Exam Constitutional: General: She is not in acute distress. Appearance: She is not toxic-appearing or diaphoretic. HENT: Head: Normocephalic and atraumatic. Cardiovascular: Pulses: Dorsalis pedis pulses are 1+ on the right side and 1+ on the left side. Posterior tibial pulses are 1+ on the right side and 1+ on the left side. Pulmonary: Effort: Pulmonary effort is normal. No accessory muscle usage or respiratory distress. Musculoskeletal: Feet: Neurological: Mental Status: She is alert and oriented to person, place, and time. ASSESSMENT/PLAN: 1. Pain of left lower extremity due to injury - ICD9: 729.5, ICD10: M79.605 -no bony abnormality noted on xray -given stretches/exercises -Rest, Ice, Compression, Elevation discussed -discussed use of ibuprofen -follow up with primary care if symptoms persist/worsen in 10-14 days - XR TOE AP/LAT/OBL LEFT IMPRESSION: No acute fracture or dislocation of the great toe. Dictated by : STEFANIE PINK MD - XR KNEE GENERAL 4V AP BOTH/PA BOTH/LAT/MERC LEFT Impression IMPRESSION: No acute fracture or dislocation. Dictated by : STEFANIE PINK MD Agrees to plan Angelo Jean-Baptiste APRN.CNP Additional Medical Conditions Last edited 12/26/21 17:48 EDT by Angelo Jean-Baptiste APRN.INTEGRATION SOLUTION ARCHITECT documented in this encounter [facility] 11-02-2021 Miscellaneous Notes Patient notified. Kimberly Leach RN Please let the pt know that her cultures are negative, but I will send in cleocin to see if that will help with th odor as we discussed. Mahsa Snell APRN.CNP documented in this encounter [facility] documented as of this encounter (statuses as of 11/02/2021) [facility] History of Past illness Narrative* Problem Noted Date Resolved Date RLQ abdominal pain 08/04/2014 08/11/2015 Abdominal muscle strain 08/04/2014 08/11/19 16 Tendonitis 01/07/2012 11/05/2013 Congenital pes planus 01/07/2012 11/05/2016 Left knee pain 12/28/2011 11/05/2013 Complex endometrial hyperplasia without atypia 1 08/21/2010 11/05/2016 Heel pain 03/15/2010 06/23/2014 Abdominal pain, epigastric 01/17/201001/01 Dysphagia 01/10/2010 11/05/2013 Breast Cancer, Stage 1 11/25/2009 Overview: S/P 01/04/2006 Left modified radical mastectomy with lymphatic mapping. Right simple mastectomy with Natasha Hendrix M.D. Abnormal weight gain 07/15/2009 06/25/2011 Vitamin D deficiency 04/26/2009 06/06/2010 Symptomatic states associated with artificial me nopause 04/25/2009 11/05/2013 Bronchitis, not specified as acute or chronic 07/03/2013 Other bursitis disorders 10/08/2006 012 Migraine without aura, witho ut mention of intractable migraine without mention of status migrainosus 07/25/2006 014 Abdominal pain, other specified site 04/18/2006 01/01/2011 Anemia, unspecified 11/05/2005 06/23/2014 Malignant neoplasm of breast (female), unspecifi ed site 03/15/2005 11/05/2013 Overview: DCIS left breast 2001 documented as of this encounter (statuses as of 12/26/2021) [facility] History of Past illness Narrative* Problem Noted Date Resolved Date RLQ abdominal pain 08/04/2014 08/11/2015 Abdominal muscle strain 08/04/2014 08/11/19 16 Tendonitis 01/07/2012 11/05/2013 Congenital pes planus 01/07/2012 11/05/2016 Left knee pain 12/28/2011 11/05/2013 Complex endometrial hyperplasia without atypia 1 08/21/2010 11/05/2016 Heel pain 03/15/2010 06/23/2014 Abdominal pain, epigastric 01/17/201001/01 Dysphagia 01/10/2010 11/05/2013 Breast Cancer, Stage 1 11/25/2009 Overview: S/P 01/04/2006 Left modified radical mastectomy with lymphatic mapping. Right simple mastectomy with Natasha Hendrix M.D. Abnormal weight gain 07/15/2009 06/25/2011 Vitamin D deficiency 04/26/2009 06/06/2010 Symptomatic states associated with artificial me nopause 04/25/2009 11/05/2013 Bronchitis, not specified as acute or chronic 07/03/2013 Other bursitis disorders 10/08/2006 012 Migraine without aura, witho ut mention of intractable migraine without mention of status migrainosus 07/25/2006 014 Abdominal pain, other specified site 04/18/2006 01/01/2011 Anemia, unspecified 11/05/2005 06/23/2014 Malignant neoplasm of breast (female), unspecifi ed site 03/15/2005 11/05/2013 Overview: DCIS left breast 2001 documented as of this encounter (statuses as of 02/09/2022) [facility] History of Past illness Narrative* Problem Noted Date Resolved Date RLQ abdominal pain 08/04/2014 08/11/2015 Abdominal muscle strain 08/04/2014 08/11/19 16 Tendonitis 01/07/2012 11/05/2013 Congenital pes planus 01/07/2012 11/05/2016 Left knee pain 12/28/2011 11/05/2013 Complex endometrial hyperplasia without atypia 1 08/21/2010 11/05/2016 Heel pain 03/15/2010 06/23/2014 Abdominal pain, epigastric 01/17/201001/01 Dysphagia 01/10/2010 11/05/2013 Breast Cancer, Stage 1 11/25/2009 Overview: S/P 01/04/2006 Left modified radical mastectomy with lymphatic mapping. Right simple mastectomy with Natasha Hendrix M.D. Abnormal weight gain 07/15/2009 06/25/2011 Vitamin D deficiency 04/26/2009 06/06/2010 Symptomatic states associated with artificial me nopause 04/25/2009 11/05/2013 Bronchitis, not specified as acute or chronic 07/03/2013 Other bursitis disorders 10/08/2006 012 Migraine without aura, witho ut mention of intractable migraine without mention of status migrainosus 07/25/2006 014 Abdominal pain, other specified site 04/18/2006 01/01/2011 Anemia, unspecified 11/05/2005 06/23/2014 Malignant neoplasm of breast (female), unspecifi ed site 03/15/2005 11/05/2013 Overview: DCIS left breast 2001 documented as of this encounter (statuses as of 02/22/2022) [facility] No data available for this section [facility]* Diagnosis Pain of left lower extremity due to injury- [facility]AB (overactive bladder)- Primary Hypertonicity of bladder History of gastric bypass Bariatric surgery [facility] Chronic pain of left knee- Primary Pain in joint, lower leg Primary osteoarthritis of left knee Primary localized osteoarthrosis, lower leg [facility] Diagnostic Procedure Only (Urgent) - Closed Specialty Diagnoses / Procedures Referred By Contac t Referred To Contact XR IMAGING Diagnoses Pain of left lower extremity due to injury Procedures XR KNEE GENERAL 4V AP BOTH/PA BOTH/LAT/MERC LEFT RADIOLOGIC EXAM KNEE COMPLETE 4/MORE VIEWS Angelo Jean-Baptiste APRN.INTEGRATION SOLUTION ARCHITECT [address] [place] [address] Xr Imaging Referral ID Status Reason Start Date Expiration Date V isits Requested Visits Authorized [id number] Closed Auto-Generate d Referral 12/26/2021 01/25/2023 1 1 * Diagnostic Procedure Only (Urgent) - Closed Specialty Diagnoses / Procedures Referred By Contac t Referred To Contact XR IMAGING Diagnoses Pain of left lower extremity due to injury Procedures XR TOE AP/LAT/OBL LEFT RADEX TOE MINIMUM 2 VIEWS Angelo Jean-Baptiste APRN.INTEGRATION SOLUTION ARCHITECT [address] [place] [address] Xr Imaging Referral ID Status Reason Start Date Expiration Date V isits Requested Visits Authorized [id number] Closed Auto-Generate d Referral 12/26/2021 01/25/2023 1 1 [facility] Summary Purpose Family History No Family History Records FoundNo Family History Records FoundNo Family History Records FoundNo Family History Records Found Advance Directives No Advanced Directives Records FoundNo Advanced Directives Records FoundNo Advanced Directives Records FoundNo Advanced Directives Records Found Additional Source Comments INFORMATION SOURCE (unrecogn ized section and content) DATE CREATED AUTHOR AUTHOR'S ORGANIZ ATION 02/15/2022 [facility] DATE CREATED AUTHOR AUTHOR'S ORGANIZ ATION 01/04/2023 [facility] ([place]) DATE CREATED AUTHOR AUTHOR'S ORGANIZ ATION 06/30/2023 [facility] Care Teams (unrecognized sec tion and content) Licensed Insurance Agent Relationship Specialty Start Date End Date Catrachita Ham [address] [place] [address] PCP - General Internal Medicine 04/20/20 Licensed Insurance Agent Relationship Specialty Start Date End Date Catrachita Ham MD PCP - General Internal Medicine 04/26/19 Licensed Insurance Agent Relationship Specialty Start Date End Date Catrachita Ham MD PCP - General Internal Medicine 04/26/19 Licensed Insurance Agent Relationship Specialty Start Date End Date Catrachita Hma MD PCP - General Internal Medicine 04/26/19 Licensed Insurance Agent Relationship Specialty Start Date End Date Catrachita Ham MD PCP - General Internal Medicine 04/26/19 Source Comments (unrecognize d section and content) In the event this informatio n is protected by the Federal Confidentiality of Alcohol and Drug Abuse Patient Records regulations: The Federal rules restrict any use of the information to criminally investigate or prosecute any alcohol or drug abuse patient.[facility] the event this information is protected by the Federal Confidentiality of Alcohol and Drug Abuse Patient Records regulations: The Federal rules restrict any use of the information to criminally investigate or prosecute any alcohol or drug abuse patient.[facility] Center[facility] the event this information is protected by the Federal Confidentiality of Alcohol and Drug Abuse Patient Records regulations: The Federal rules restrict any use of the information to criminally investigate or prosecute any alcohol or drug abuse patient.[facility] the event this information is protected by the Federal Confidentiality of Alcohol and Drug Abuse Patient Records regulations: The Federal rules restrict any use of the information to criminally investigate or prosecute any alcohol or drug abuse patient.[facility] Reason for Visit (unrecogniz ed section and content) Reason Comments Knee Pain and left big toe gilles n, patient fell on Reason Comments Overactive Bladder Specialty Diagnoses / Procedures Referred By Contac t Referred To Contact Diagnoses OAB (overactive bladder) Urinary incontinence, unspecified type Procedures CONSULT TO FEMALE UROLOGY/URO GYNECOLOGY OFFICE/OUTPATIENT [facility] 60-74 MINUTES Mahsa Snell APRN.INTEGRATION SOLUTION ARCHITECT [address] [place] [address] Referral ID Status Reason Start Date Expiration Date V isits Requested Visits Authorized [id number] Closed PCP Requested Referral 10/31/2021 10/31/2022 1 1 Reason Comments New Pain Care Team (unrecognized sect ion and content) Care Team Personnel Name: CATRACHITA HAM MD Member Role: Primary Care Physician Address: Address: [facility] [place] [address]- Name: Alyssa Dunbar RN Position: AO RN Member Role: RN Name: MD MAMADOU CONNELLY MD Position: ED Physician Member Role: ED Physician Address: Address: [facility] [address] [place] [address]- Name: PATO Baker Position: AO RN Member Role: ED RN Care Team Personnel Name: CATRACHITA HAM MD Member Role: Primary Care Physician Address: Address: [address] [place] [id number]- Name: IRINA BUNCH Position: ED Physician Member Role: ED Physician Address: Address: [address] [place] [address]- Name: CAROLINA PALACIOS DO Position: Resident Member Role: Resident Address: Address: [address] [place] [address]- Name: PATO Baker Position: AO RN Member Role: ED RN FOR RECORDS PERTAINING TO PATIENTS WHO ARE OR HAVE BEEN ENROLLED IN A CHEMICAL DEPENDENCY/SUBSTANCEABUSE PROGRAM, SOME INFORMATION MAY BE OMITTED. This clinical summary was aggregated from multiple sources. Caution should be exercised in using it in the provision of clinical care. This summary normalizes information from multiple sources, and as a consequence, information in this document may materially change the coding, format and clinical context of patient data. In addition, data may be omitted in some cases. CLINICAL DECISIONS SHOULD BE BASED ON THE PRIMARY CLINICAL RECORDS. [facility] [employer] [facility]. provides no warranty or guarantee of the accuracy or completeness of information in this document.
== END 2023-07-22 21:35 | disposition left against medical advice (07) ==
LOC: ED 21:37
PROVIDERS: PCP Internal Medicine
DX: R69 Illness, unspecified (principal); Z53.21 Procedure and treatment not carried out due to patient leaving prior to being seen by health care provider

== ENCOUNTER → 2023-08-19 | Outpatient (CLI) | payer MEDICARE, MEDICAID, SELFPAY ==
[2023-08-19 12:39] LABS: Absolute Lymphocyte Count 2.37 X10^3/uL (0.83-4.51); Absolute Neutrophil Count 2.4 X10^3/uL (2.0-7.7); Basophil# 0.03 X10^3/uL; Basophil% 0.6 % (0-1); Eosinophil# 0.09 X10^3/uL; Eosinophils% 1.7 % (0-5); Erythrocyte Sedimentation Rate 13 mm/hr (0-30); Hematocrit 43.7 % (37-47); Hemoglobin 13.5 g/dL (12.0-15.0); Lymphocyte # 2.37 X10^3/ul (0.83-4.51); Lymphocyte % 44.8 % (19-41); Mean Corp Hgb Conc 30.9 g/dL (32-36); Mean Corpuscular Hgb 29.4 pg (27.0-32.0); Mean Corpuscular Volume 95.2 fL (81-99); Mean Platelet Vol. 10.5 fl (6.2-12.0); Monocyte# 0.41 X10^3/uL; Monocyte% 7.8 % (0-10); NRBC Flagged by Analyzer 0 % (0-5); Neutrophil # 2.37 X10^3/uL (2.7-7.7); Neutrophil % 44.7 % (47-70); Platelet Count 221 K/mm3 (150-450); RBC Distribution Width CV 15.1 % (11.6-14.6); RBC Distribution Width SD 52.4 fl (35.1-43.9); Red Blood Count 4.59 M/mm3 (4.2-5.4); White Blood Count 5.3 K/mm3 (4.4-11.0)
[2023-08-19 13:22] LABS: Vitamin B12 204 pg/mL (211-911)
[2023-08-19 13:23] LABS: ALB/GLOB Ratio 0.8 RATIO (0.9-2.4); AST(SGOT) 22 U/L (15-37); Alanine Aminotransfer ALT/SGPT 23 U/L (13-56); Albumin, Serum 3.1 g/dL (3.2-5.0); Alkaline Phosphatase 109 U/L (45-117); Anion Gap 2 (5-15); BUN 9 mg/dL (7-18); BUN/Creat Ratio 11.7 RATIO (10-20); CRP < 2.90 mg/L (0.0-3.0); Chloride 106 mmol/L (98-107); Cholesterol 196 mg/dL (200); Creatinine, Serum 0.77 mg/dL (0.55-1.02); EST Glomerular Filtration Rate 80 mL/min (>60); Est Glom Filt Rate - Afr Amer 96 mL/min (>60); Ferritin 25 ng/mL (8-252); Globulin 3.7 g/dL (2.2-4.2); Glucose 87 mg/dL (74-106); High Density Lipoprotein 85 mg/dL; Magnesium 2.2 mg/dL (1.6-2.6); Protein, Total 6.8 g/dL (6.4-8.2); Rheumatoid Factor < 10.0 IU/mL (<15); Sodium Level 139 mmol/L (136-145); Thyroid Stim Hormone (TSH) 1.28 uIU/mL (0.358-3.74); Triglycerides 60 mg/dL; Uric Acid 3.7 mg/dL (2.6-6.0); Very Low Density Lipoprotein 12 mg/dL (5-40)
[2023-08-19 13:34] LABS: Hemoglobin A1c 5.9 % (3.8-5.6)
--- OUTSIDE RECORDS SUMMARY | 2023-08-19 18:33 | XMS RPT_ITS | CCD ---
Author Name Unknown Address [address] [place] [address] Organization [facility] Care Team Providers Care Mail Messenger Name Role Phone Catrachita Ham Primary Care Provider CATRACHITA HAM MD Primary Care Physician [phone] CATRACHITA HAM MD Primary Care Unavailab CHOLO Hwang MD Attending Unavail IRINA Kaur DO Attending CATRACHITA Wheeler MD Primary Care Unavailab CATRACHITA Singleton MD Primary Care Unavailab gabi CONNELLY MD, DR MAMADOU Simms Attending Jeaneth palmer Allergies Allergy Classification Reported Allergen(s) Allergy Type Date of Onset Reaction(s) Facility (10 sources) Cephalexin; Translations: [cephalexin] Drug Allergy 5 Itching, Swelling [place] (10 sources) Morphine; Translations: [morphine] Drug Allergy 7 Itching [place] (4 sources) metroNIDAZOLE Drug Allergy 1 Rash [facility] Medications Current Medications Medication Drug Class(es) Dates [...] Drug Class(es) Dates Sig (Normalized) Sig (Original) [id number] 200 actuat albuterol 0.09 mg/actuat metered dose [...] Heart rate 88 /min CHOLO ANN MD [facility] 12-25-2022 12:34-0400 Respiratory rate 20 /min CHOLO ANN MD [facility] 12-25-2022 11:30-0400 Body height 160 cm CHOLO ANN MD [facility] 12-25-2022 11:30-0400 Body temperature 98.6 [degF] CHOLO ANN MD [facility] 12-25-2022 11:30-0400 Body weight 149 kg CHOLO ANN MD [facility] 12-25-2022 11:30-0400 Diastolic Blood Pressure Non-Invasive 79 1 CHOLO ANN MD [facility] 12-25-2022 11:30-0400 Heart rate 95 /min CHOLO ANN MD [facility] 12-25-2022 11:30-0400 Respiratory rate 20 /min CHOLO ANN MD [facility] 12-25-2022 11:30-0400 Systolic Blood Pressure Non-Invasive 118 1 CHOLO ANN MD [facility] 08-08-2022 14:27-0500 Heart rate 90 /min IRINA FROMMELT DO [facility] 08-08-2022 14:27-0500 Respiratory rate 20 /min IRINA FROMMELT DO [facility] 08-08-2022 13:10-0500 Body height 160 cm IRINA FROMMELT DO [facility] 08-08-2022 13:10-0500 Body temperature 98.24 [degF] IRINA FROMMELT DO [facility] 08-08-2022 13:10-0500 Body weight 158.2 kg IRINA FROMMELT DO [facility] 08-08-2022 13:10-0500 Diastolic Blood Pressure Non-Invasive 74 1 IRINA FROMMELT DO [facility] 08-08-2022 13:10-0500 Heart rate 97 /min IRINA FROMMELT DO [facility] 08-08-2022 13:10-0500 Respiratory rate 22 /min IRINA FROMMELT DO [facility] 08-08-2022 13:10-0500 Systolic Blood Pressure Non-Invasive 109 1 IRINA FROMMELT DO [facility] 07-02-2022 15:55-0500 Body height [address] MAMADOU CONNELLY MD [facility] 07-02-2022 15:55-0500 Body temperature 100.22 [degF] DR MAMADOU CONNELLY MD [facility] 07-02-2022 15:55-0500 Body weight 158.[address] MAMADOU CONNELLY MD [facility] 07-02-2022 15:55-0500 Diastolic Blood Pressure Non-Invasive [address] MAMADOU CONNELLY MD [facility] 07-02-2022 15:55-0500 Heart rate 73 /min DR MAMADOU CONNELLY MD [facility] 07-02-2022 15:55-0500 Respiratory rate 20 /min DR MAMADOU CONNELLY MD [facility] 07-02-2022 15:55-0500 Systolic Blood Pressure Non-Invasive [address] MAMADOU CONNELLY MD [facility] 02-09-2022 10:29-0400 Body height 158.8 cm Jennifer Doran MD Work Phone: [facility] 02-09-2022 10:29-0400 Body weight 158.31 kg Jennifer Doran MD Work Phone: [facility] 02-09-2022 10:29-0400 Diastolic blood pressure 68 mm[Hg] Jennifer Doran MD Work Phone: [facility] 02-09-2022 10:29-0400 Systolic blood pressure 128 mm[Hg] Jennifer Doran MD Work Phone: [facility] 12-26-2021 17:29-0400 Body temperature 98.29 [degF] Angelo Jean-Baptiste APRN.CNP Work Phone: [facility] 12-26-2021 17:29-0400 Body weight 158.31 kg Angelo Estiven [employer].RESIDENTIAL TECH Work Phone: [facility] 12-26-2021 17:29-0400 Diastolic blood pressure 68 mm[Hg] Angelo Jean-Baptiste [employer].RESIDENTIAL TECH Work Phone: [facility] 12-26-2021 17:29-0400 Heart rate 92 /min Angelo Jean-Baptiste [employer].RESIDENTIAL TECH Work Phone: [facility] 12-26-2021 17:29-0400 Respiratory rate 18 /min Angelo Jean-Baptiste [employer].RESIDENTIAL TECH Work Phone: [facility] 12-26-2021 17:29-0400 SaO2% (BldA) [Mass fraction] 97 % Angelo Jean-Baptiste [employer].RESIDENTIAL TECH Work Phone: [facility] 12-26-2021 17:29-0400 Systolic blood pressure 128 mm[Hg] Angelo Jean-Baptiste [employer].RESIDENTIAL TECH Work Phone: [facility] Encounters Encounter Date Encounter Type Care Provider Facility Start: 12-25-2022 End: 12-25-2022 Emergency department patient visit CATRACHITA HAM MD Facility:B Start: 12-25-2022 End: 12-25-2022 Emergency department patient visit CHOLO ANN MD [facility] Start: 08-08-2022 End: 08-08-2022 Emergency department patient visit IRINA [facility] Facility:B Start: 08-08-2022 End: 08-08-2022 Emergency department patient visit [facility] Start: 07-02-2022 End: 07-02-2022 Emergency department patient visit CATRACHITA HAM MD Facility:B Start: 07-02-2022 End: 07-02-2022 Emergency department patient visit DR MAMADOU CONNELLY MD [facility] Start: 02-22-2022 End: 02-22-2022 Patient encounter procedure Osbaldo Rodriguez MD Work Phone: Orthopaedics Procedures Date Procedure Procedure Detail Performing Clinician Start: 02-09-2022 Urnls dip stick/tabl et rgnt auto w/o microscopy Jennifer Doran MD Work Phone: Start: 12-26-2021 Radiologic exam knee complete 4/more views Angelo Jean-Baptiste [employer].RESIDENTIAL TECH Work Phone: Start: 03-26-2012 Colonoscopy Mahsa [facility] [employer].RESIDENTIAL TECH Work Phone: Bypass of stomach IRINA LOUIS OMMELT DO Excision of [facility]atal [facility] (disorder) [facility] Structure of dylon s tendon (body structure) [facility] Plan of Treatment Date Care Activity Detail Author Start: 05-29-2026 Lipid panel Lipid screen [facility] Start: 03-26-2022 Colonoscopy COLONOSCOPY [facility] Start: 03-26-2022 COLORECTAL CANCER SCREENING COLORECTAL CANCER SCREENING [facility] Start: 02-22-2022 Influenza vaccination [facility] Start: 11-01-2021 End: 11-01-2021 Patient encounter procedure 11/01/2021 Office Visit Weight Management Nina Roberts MD [address] [place] [address] [facility] Start: 09-27-2021 End: 09-27-2021 Patient encounter procedure 09/27/2021 Office Visit Weight Management Nina Roberts MD [address] [place] [address] [facility] Start: 2021 ADVANCE DIRECTIVE DISCUSSION ADVANCE DIRECTIVE DISCUSSION [facility] Start: 2021 BONE DENSITY BONE DENSITY [facility] Start: 2021 Pneumococcal 65+ years Vaccine (1 of 1 - PPSV23) Pneumococcal 65+ years Vaccine (1 of 1 - PPSV23) [facility] Start: 2021 PNEUMOCOCCAL: 65+ (1 - PCV) PNEUMOCOCCAL: 65+ (1 - PCV) [facility] Start: 2021 PNEUMOVAX AGE 65 AND OVER WITH 5YR LOOKBACK (#1) PNEUMOVAX AGE 65 AND OVER WITH 5YR LOOKBACK (#1) [facility] Start: 02-22-2021 Influenza vaccination Flu vaccine (#1) [facility] Start: 08-11-2020 LIPID SCREEN LIPID SCREEN [facility] Start: 04-14-2020 Annual Wellness Visit (AWV) Annual Wellness Visit (AWV) [facility] Start: 02-23-2020 Influenza vaccination Flu vaccine (#1) [place] Start: 11-06-2019 DIABETES SCREEN DIABETES SCREEN [facility] Start: 08-28-2011 Screening for osteoporosis DEXA (modify frequency per FRAX score) [facility] Start: 2006 Screening for malignant neoplasm of colon Colon cancer screen colonoscopy [place] Start: 2006 Shingles Vaccine (1 of 2) Shingles Vaccine (1 of 2) [facility] Start: 2006 SHINGRIX VACCINE (1 of 2) SHINGRIX VACCINE (1 of 2) [facility] Start: 2001 COLOGUARD (FIT-DNA) COLOGUARD (FIT-DNA) [facility] Start: [address] COLONOGRAPHY [facility] Start: 2001 FECAL OCCULT BLOOD FECAL OCCULT BLOOD [facility] Start: 2001 Screening for malignant neoplasm of colon [facility] Start: 2001 SIGMOIDOSCOPY SIGMOIDOSCOPY [facility] Start: 1996 Lipid panel Lipid screen [place] Start: 1986 Screening for malignant neoplasm of cervix [facility] Start: 1977 Screening for malignant neoplasm of cervix [facility] Start: 08-28-1975 DTaP/Tdap/Td vaccine (1 - Tdap) DTaP/Tdap/Td vaccine (1 - Tdap) [facility] Start: 08-28-1975 Urine microalbumin profile DTAP,TDAP,TD (1 - Tdap) [facility] Start: 08-28-1971 HIV screening HIV screen [facility] Start: 1968 Depression Screen Depression Screen [facility] Start: 1961 COVID-19 VACCINE (#1) COVID-19 VACCINE (#1) [facility] Start: 1961 COVID-19 Vaccine (1) COVID-19 Vaccine (1) [facility] Start: 02-27-1957 COVID-19 VACCINE (#1) COVID-19 VACCINE (#1) [facility] Start: 1956 Hepatitis C screening [facility]atitis C screen [facility] Immunizations Immunization Date Immunization Notes Care Provider Fa cili 04-13-2009 influenza virus vaccine, unspecified formulation Mahsa Snell [employer] Work Phone: [facility] Work Phone: Payers Date Payer Category Payer Unknown MEDPAY MEDPAY [id number] 2021-Present [phone] [address] [place] [address] Indemnity [id number] 2019 Unknown [id number] 2014 Medicaid [id number] 2014 Medicaid [employer]ICA[employer] [id number] 2014-Present [phone] [address] [place] [address] Medicaid [id number] 2014 Medicare [employer] ARE MYCARE [employer]ICARE [id number] 2014-Present [phone] [address] [place] [address] Medicare [id number] 1956 Unknown [id number] 1956 Unknown [id number] 1956 Unknown [id number] Social History Date Type Detail Facility Start: 05-24-2020 End: 07-02-2022 Tobacco smoking status NHIS Never smoker [place] Start: 05-24-2020 Tobacco use and exposure Never used [place] Start: 05-24-2020 Alcohol intake Current drinke r of alcohol (finding) [place] Start: 05-24-2020 Alcohol Comment rarely [place], [place] Start: 1955 Sex Assigned At Not on file M [place] Start: 05-30-2021 Alcohol intake Ex-drinker (finding) [facility] Work Phone: Start: 09-13-2020 History SDOH Alcohol Frequency 99 [employer] Phone: Start: 10-31-2021 End: 02-22-2022 Alcohol intake Current non-drinker of alcohol (finding) [facility] Start: 10-21-2021 End: 02-22-2022 Exposure to SARS-CoV-2 (event) Not sure [facility] Work Phone: Sex Assigned At Sex [facility] Functional Status Date Assessment Result Facility 12-25-2022 Functional Status Up ad isaias [facility] 12-25-2022 Functional Status Identified as high risk, Fall ID band on [facility] 08-08-2022 Functional Status Up ad isaias [facility] 07-02-2022 Functional Status Independent [facility] 07-02-2022 Functional Status Standard Safet y ID band on, Allergy Band on [facility] Mental Status Date Assessment Result Facility 12-25-2022 Mental Status Orientation Oriented x 4 [facility] 08-08-2022 Mental Status Orientation Oriented x 4 [facility] 07-02-2022 Mental Status Orientation Oriented x 4 [facility] 07-02-2022 Mental Status [facility] Clinical Notes 08-04-2014 to 12-25-2022 Osbaldo Rodriguez MD - 02/22/2022 8:26 AM EDTPatient InstructionsJennifer Doran MD - 02/09/2022 10:00 AM EDTAngelo Jean-Baptiste APRN.RESIDENTIAL TECH - 12/26/2021 5:56 PM EDT Note Date [...] are needed. Resources For more information, contact: [employer], [facility].memberclicks.net or [phone] [employer], theacpa.org or [phone] [employer] [place] [address], [place] [address]. All rights reserved. This information is not intended as a substitute for professional medical care. Always follow your healthcare professional's instructions. Follow Up Care 12/25/2022 11:24:37 With:CATRACHITA HAM MD Address: [address] [place] [address] [place] [address]- [phone] When:2-4 days [facility] 12-25-2022 Note Discharge Instructions Thank you for allowing [facility] to assist you with your healthcare needs. [...] When Within 2-4 days Where: [facility] [place] [address] [phone] Allergies cephalexin morphine Medications Please ask your [...] are needed. Resources For more information, contact: [place], ahnury.memberclThe Muse.net or [phone] [employer], theacpa.org or [phone] 1915-[address] [employer] [place] [address]. All rights reserved. This information is not intended as a substitute for professional medical care. Always follow your healthcare professional's instructions. Additional Information VACCINATE! IT SAVES LIVES! Members of the community who have not yet received the COVID-19 vaccine and would like to receive it can visit one of [facility] vaccine clinics. There are many vaccine clinic locations within the [facility]. For locations and available times, please visit [email or web address] v/. It is important to note that some COVID mobile vaccine clinics are held outdoors and may be canceled in rainy or stormy conditions. To learn more about pediatric vaccinations (ages 5-11), we invite you to visit the [facility] webpage. https://www.[facility].org/pag es/5985-Rhdia-Gwvcgkrjgvc-Frequent oi-Tdmqm-Zlmsqzxdu.html To learn more about the COVID-19 vaccine, we invite you to visit the CDC website for a list of frequently asked questions. https://www.cdc.gov/coronavirus/ 19-ncov/vaccines/faq.html Outcome Referrals Patient Portal Access Instructions: Stay connected with your healthcare team and access your personal medical information anytime with the Outcome Referrals Patient Portal. If you would like a full copy of your medical records please contact the [facility] Medical Records Department Saturday through Saturday between 8a.m. and 4:30p.m. Please follow the directions below to access the portal: 1.Access the email account you provided upon registration to the [facility].2.Look for an invitation email from [facility].3.Open the email and access the invitation link: Accept Invitation to [employer]4.Fill in the required bernardo to create your account. Sign into [email or web address].[email or web address] Heart Valve with your username and password that you [...] you will allow to register on the [facility] Patient Portal for access to your information. You can also access the [employer] Patient Portal on the MySocialNightlife myranda. Simply click on Health Records under [...] Call your local pharmacy or go to http://Xray Imatek.LFS ([employer])/7Y6Nf5f to find one close to you.3.Make use of household items: Use cat litter or old coffee grounds to dispose medications if other options are not available. Mix your drugs with these household products, seal them in an airtight container and throw it into the garbage. Call [facility]: [phone] to be sure your drugs can be [...] aware that I should contact my doctor. 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 [address] [place] [address]. All rights reserved. This information is not intended as a substitute for professional medical care. Always follow your healthcare professional's instructions. Follow Up Care 08/08/2022 12:56:30 With:CATRACHITA HAM MD Address: [address] [place] [address]- [phone] When:2-4 days [facility] 08-08-2022 Note Discharge Instructions Thank you for allowing [facility] to assist you with your healthcare needs. The following is important discharge information regarding your hospital visit. Diagnosis from Today's Visit Knee pain Leg pain-swelling What to Do Next Instructions from Your Care Team No qualifying data available. Post Acute Orders No qualifying data available. You Need to Schedule the Following Appointments Follow Up with CATRACHITA HAM MD When Within 2-4 days Where: [facility] [place] [address] [phone] Allergies cephalexin morphine Medications Please ask your [...] or as directed by your healthcare provider [phone] [employer]. [address] [place] [address], [place] [address]. All rights reserved. This information is not intended as a substitute for professional medical care. Always follow your healthcare professional's instructions. Additional Information VACCINATE! IT SAVES LIVES! Members of the community who have not yet received the COVID-19 vaccine and would like to receive it can visit one of [facility] vaccine clinics. There are many vaccine clinic locations within the [facility]. For locations and available times, please visit [email or web address] v/. It is important to note that some COVID mobile vaccine clinics are held outdoors and may be canceled in rainy or stormy conditions. To learn more about pediatric vaccinations (ages 5-11), we invite you to visit the [employer] webpage. https://www.[employer]s.org/pag es/4116-Suucc-Ddybkjzuyll-Frequent jl-Cmxxo-Jsnzzuwva.html To learn more about the COVID-19 vaccine, we invite you to visit the CDC website for a list of frequently asked questions. https://www.cdc.gov/coronavirus/-ncov/vaccines/faq.html Outcome Referrals Patient Portal Access Instructions: Stay connected with your healthcare team and access your personal medical information anytime with the [employer] Patient Portal. If you would like a full copy of your medical records please contact the [facility] Medical Records Department Saturday through Saturday between 8a.m. and 4:30p.m. Please follow the directions below to access the portal: 1.Access the email account you provided upon registration to the hospital.2.Look for an invitation email from [facility].3.Open the email and access the invitation link: Accept Invitation to [employer]4.Fill in the required bernardo to create your account. Sign into www.Wanxue Education with your username and password that you [...] you will allow to register on the [employer] Patient Portal for access to your information. You can also access the Out[facility] Referrals Patient Portal on the StarGreetz. Simply click on Health Records under Health Data and then click on the Imindi logo. HOW TO SAFELY DISPOSE OF PRESCRIPTION [...] Call your local pharmacy or go to http://Xray Imatek.LFS ([employer])/0Z6Bg8r to find one close to you.3.Make use of household items: Use cat litter or old coffee grounds to dispose medications if other options are not available. Mix your drugs with these household products, seal them in an airtight container and throw it into the garbage. Call [facility]: [phone] to be sure your drugs can be [...] aware that I should contact my doctor. 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 Resources For more information, contact: [place], ahhi.memberOcho Global.lark or [phone] [employer], theacpa.org or [phone] [employer]. [address] [place] [address]. All rights reserved. This information is not [...] cartilage lining of the joint Arthritis from qtvr-poz-tbgl or inflammation There are other causes as [...] heat. If you have to wear a uvao-pue-cuyl knee brace, you can open it to apply the ice pack, or heat, directly to the knee. Never put ice directly on the skin. Always wrap the ice in a towel or other type of cloth. You may use silk-wqs-txxqbqa pain medicine to control pain, unless another [...] full work duties. If you have a zzae-uix-ufju knee brace, you can remove it to [...] as directed by your healthcare provider Maximiliano [phone] [employer]. [address] [place] [address]. All rights reserved. This information is not [...] joint or bear weight on the joint [id number] [employer]. [address] [place] [address]. All rights reserved. This information is not intended as a substitute for professional medical care. Always follow your healthcare professional's instructions. Follow Up Care 07/02/2022 15:36:19 With:ANI GIPSON Address: [address], [address] [place] [address]- [phone] Business (1) When:2-4 days Comments:Return to ED if symptoms worsen With:Follow-up with your pain management doctor soon as possible. Address:Unknown When:2-4 days With:CATRACHITA HAM MD Address: [address] [place] [address]- [phone] When:2-4 days [facility] 07-02-2022 Note Discharge Instructions Thank you [...] to ED if symptoms worsen Where: [address] [facility] [place] [address] [phone] Business (1) Follow Up with Follow-up with your pain management doctor soon as possible. When Within 2-4 days Follow Up with CATRACHITA HAM MD When Within 2-4 days Where: [address] [place] [address]- [phone] Allergies cephalexin morphine Medications Please ask your [...] are needed. Resources For more information, contact: [employer], ahma.memberclicks.net or [phone] [employer], theacpa.org or [phone] [employer]. [address] [place] [address], [place] [address]. All rights reserved. This information is not intended as a substitute for professional medical care. Always follow your healthcare professional's instructions. Knee Pain with Uncertain Cause There are several common causes for knee pain. These can include: A sprain of the ligaments that support the joint An injury to the cartilage lining of the joint Arthritis from gpdo-chf-wrlh or inflammation There are other causes as [...] heat. If you have to wear a xvdh-dow-olxp knee brace, you can open it to apply the ice pack, or heat, directly to the knee. Never put ice directly on the skin. Always wrap the ice in a towel or other type of cloth. You may use juna-ghd-etvtins pain medicine to control pain, unless another [...] full work duties. If you have a hhsn-pox-vemi knee brace, you can remove it to [...] as directed by your healthcare provider Maximiliano [phone] [employer]. [address] [place] [address], [place] [address]. All rights reserved. This information is not [...] joint or bear weight on the joint [phone] [employer]. [address] [place] [address], [place] [address]. All rights reserved. This information is not intended as a substitute for professional medical care. Always follow your healthcare professional's instructions. Additional Information VACCINATE! IT SAVES LIVES! Members of the community who have not yet received the COVID-19 vaccine and would like to receive it can visit one of [facility] vaccine clinics. There are many vaccine clinic locations within the [facility]. For locations and available times, please visit [email or web address] g. It is important to note that some COVID mobile vaccine clinics are held outdoors and may be canceled in rainy or stormy conditions. To learn more about pediatric vaccinations (ages 5-11), we invite you to visit the [employer] webpage. [email or web address]://[email or web address] [email or web address]-Frequent ye-Izjgm-[email or web address].html To learn more about the COVID-19 vaccine, we invite you to visit the [facility] website for a list of frequently asked questions. [email or web address]/Patient i-acf-[email or web address]/jyepu-Udtphrt-Udemc ently_[email or web address]-Questions.pdf [facility] [employer] Patient Portal Access Instructions: Stay connected with your healthcare team and access your personal medical information anytime with the [employer] Patient Portal. If you would like a full copy of your medical records please contact the [facility] Medical Records Department Saturday through Saturday between 8a.m. and 4:30p.m. Please follow the directions below to access the portal: 1.Access the email account you provided upon registration to the [facility].2.Look for an invitation email from [facility].3.Open the email and access the invitation link: Accept Invitation to [employer]4.Fill in the required bernardo to create your account. Sign into www.[employer] with your username and password that you [...] you will allow to register on the [facility] Patient Portal for access to your information. You can also access the [facility] Patient Portal on the [employer] mryanda. Simply click on Health Records under Health Data and then click on the [employer] logo. HOW TO SAFELY DISPOSE OF PRESCRIPTION [...] Call your local pharmacy or go to [email or web address]://X[email or web address] [employer])/7Z4Dc4s to find one close to you.3.Make use of household items: Use cat litter or old coffee grounds to dispose medications if other options are not available. Mix your drugs with these household products, seal them in an airtight container and throw it into the garbage. Call [facility]: [phone] to be sure your drugs can be [...] aware that I should contact my doctor. 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 Signature: Date/Time: Relationship to Patient: ___ Witness Name/Signature: Date/Time: [facility] 07-02-2022 Note ORIGINAL EXAMINATION: 2 x-ray [...] 07/02/2022 5:46:28 PM Ordering Provider: MAMADOU CONNELLY [facility] 07-02-2022 Note ORIGINAL EXAMINATION: THREE XRAY [...] Sign Date: 07/02/2022 5:45:16 PM Ordering Provider: [facility] 07-02-2022 Note ORIGINAL EXAMINATION: 2 x-ray views [...] Sign Date: 07/02/2022 5:46:28 PM Ordering Provider: [facility] 07-02-2022 Note ORIGINAL EXAMINATION: THREE XRAY VIEWS [...] 07/02/2022 5:45:16 PM Ordering Provider: MAMADOU CONNELLY [facility] 02-22-2022 History of Present illness Narrative Osbaldo Rodriguez MD Department of Orthopaedics Orthopaedics [address] [facility] [address] Dept: [phone] Dept February 22, 2022 CHIEF COMPLAINT: New [...] situation. FOLLOW UP INSTRUCTIONS: As above Ms. Halley Sanchez was advised as to contrast therapies [...] IMAGING: IMPRESSION: No acute fracture or dislocation. Felt Cutter: PSCB Transcribe Date/Time: Dec 26 2021 6:47P [...] (HCC) 11/25/2009 Carcinoma in situ of breast [id number] left breast Chronic rhinitis 03/15/2005 Complex endometrial [...] Airway SEROMA, POST OP 10/14/2006 Unspecified asthma(493.90) 60670124 Vitamin D deficiency 04/26/2009 Past Surgical History: PAST SURGICAL HISTORY Procedure Laterality Date APPENDECTOMY 06/24/1997 incidental at time of GBP in [place] BIOPSY BREAST OPEN INCISIONAL Bx of breast, incisional, left CHOLECYSTECTOMY 06/24/1997 in conjunction with GBP in [place] COLONOSCOPY FLX DX W/COLLJ SPEC WHEN PFRMD 03/26/2012 Colonoscopy EGD TRANSORAL BIOPSY SINGLE/MULTIPLE 01/10/2010 post gastric bypass, minimal inflammation GASTRIC RSTCV W/BYP W/SHORT LIMB 150 CM/< 06/24/1997 [place], incidental appendectomy, choelcystectomy, liver biopsy I&D HEMATOMA [...] medical record. SELF Catrachita Ham MD [address] [facility] [address] Osbaldo Rodriguez MD documented in this encounter [facility] 02-09-2022 Note HNO ID: [id number] Author: Jennifer Doran MD Service: ? 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: Last Pap: Date: 08/03/16 NIL, HPV [...] 06/24/1997 incidental at time of GBP in [place] BIOPSY BREAST OPEN INCISIONAL Bx of breast, incisional, left CHOLECYSTECTOMY 06/24/1997 in conjunction with GBP in [place] COLONOSCOPY FLX DX W/COLLJ SPEC WHEN PFRMD 03/26/2012 Colonoscopy EGD TRANSORAL BIOPSY SINGLE/MULTIPLE 01/10/2010 post gastric bypass, minimal inflammation GASTRIC RSTCV W/BYP W/SHORT LIMB 150 CM/< 06/24/1997 [place], incidental appendectomy, choelcystectomy, liver biopsy IANDD HEMATOMA [...] (HCC) 11/25/2009 Carcinoma in situ of breast [id number] left breast Chronic rhinitis 03/15/2005 Complex endometrial hyperplasia without atypia Congenital pes planus 01/07/2012 DJD (degenerative joint disease) of knee 03/02/2011 Dr Cedeno, [facility] 12/27/2011, moderate osteoarthritis in left knee, Synvisc injections every 6 months. ER+ (estrogen receptor positive status) 11/25/2009 Hiatal hernia 2002 Left knee pain 12/28/2011 [facility] 12/27/2011, moderate osteoarthritis in left knee, Synvisc injections every 6 months. Lumbar radicular syndrome 04/25/2009 Pain Management: Dr. Quesada. Major Depress (more content not included)... [facility] 02-09-2022 Instructions Jennifer Doran MD - 02/09/2022 [...] pass without straining. 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: Last Pap: Date: 08/03/16 NIL, HPV [...] 06/24/1997 incidental at time of GBP in [place] BIOPSY BREAST OPEN INCISIONAL Bx of breast, incisional, left CHOLECYSTECTOMY 06/24/1997 in conjunction with GBP in [place] COLONOSCOPY FLX DX W/COLLJ SPEC WHEN PFRMD 03/26/2012 Colonoscopy EGD TRANSORAL BIOPSY SINGLE/MULTIPLE 01/10/2010 post gastric bypass, minimal inflammation GASTRIC RSTCV W/BYP W/SHORT LIMB 150 CM/< 06/24/1997 [place], incidental appendectomy, choelcystectomy, liver biopsy I&D HEMATOMA [...] (HCC) 11/25/2009 Carcinoma in situ of breast [id number] left breast Chronic rhinitis 03/15/2005 Complex endometrial [...] Airway SEROMA, POST OP 10/14/2006 Unspecified asthma(493.90) 45044304 Vitamin D deficiency 04/26/2009 FAMILY HISTORY Problem [...] ROS obtained by others. Jennifer Doran MD Toy Maker offered: Patient accepts, visit chaperoned by Rojelio [...] Post Wall - Normal support Cervix / [place] - Normal support POP-Q: Prolapse Noted: No [...] Jennifer Doran MD documented in this encounter [facility] 12-26-2021 History of Present illness Narrative Images [...] (HCC) 11/25/2009 Carcinoma in situ of breast [id number] left breast Chronic rhinitis 03/15/2005 Complex endometrial hyperplasia without atypia Congenital pes planus 01/07/2012 DJD (degenerative joint disease) of knee 03/02/2011 Dr Cedeno, [facility] 12/27/2011, moderate osteoarthritis in left knee, Synvisc injections every 6 months. ER+ (estrogen receptor positive status) 11/25/2009 Hiatal hernia 2002 Left knee pain 12/28/2011 Dr Cedeno, [facility] 12/27/2011, moderate osteoarthritis in left knee, [...] Airway SEROMA, POST OP 10/14/2006 Unspecified asthma(493.90) [id number] Vitamin D deficiency 04/26/2009 PAST SURGICAL HISTORY Procedure Laterality Date APPENDECTOMY 1997 incidental at time of GBP in [place] BIOPSY BREAST OPEN INCISIONAL Bx of breast, incisional, left CHOLECYSTECTOMY 1998 in conjunction with GBP in [place] COLONOSCOPY FLX DX W/COLLJ SPEC WHEN PFRMD 03/26/2012 Colonoscopy EGD TRANSORAL BIOPSY SINGLE/MULTIPLE 01/10/10 post gastric bypass, minimal inflammation GASTRIC RSTCV W/BYP W/SHORT LIMB 150 CM/< 1997 [place], incidental appendectomy, choelcystectomy, liver biopsy I&D HEMATOMA [...] edited 12/26/21 17:48 EDT by Angelo Jean-Baptiste APRN.RESIDENTIAL TECH documented in this encounter [facility] 11-02-2021 Miscellaneous Notes Patient notified. Kimberly Leach RN Please let the pt know that her cultures are negative, but I will send in cleocin to see if that will help with th odor as we discussed. Mahsa Snell APRN.CNP documented in this encounter [facility] documented as of this encounter (statuses as of 11/02/2021) [facility] History of Past illness Narrative* Problem Noted [...] of this encounter (statuses as of 12/26/2021) [facility] History of Past illness Narrative* Problem Noted [...] of this encounter (statuses as of 02/09/2022) [facility] History of Past illness Narrative* Problem Noted [...] of this encounter (statuses as of 02/22/2022) [facility] No data available for this section [facility] Evaluation note* Diagnosis Pain of left lower extremity due to injury- [facility] OAB (overactive bladder)- Primary Hypertonicity of bladder History of gastric bypass Bariatric surgery status [facility] Chronic pain of left knee- Primary Pain in joint, lower leg Primary osteoarthritis of left knee Primary localized osteoarthrosis, lower leg [facility] Diagnostic Procedure Only (Urgent) - Closed Specialty Diagnoses / Procedures Referred By Contac t Referred To Contact XR IMAGING Diagnoses Pain of left lower extremity due to injury Procedures XR KNEE GENERAL 4V AP BOTH/PA BOTH/LAT/MERC LEFT RADIOLOGIC EXAM KNEE COMPLETE 4/MORE VIEWS Angelo Jean-Baptiste APRN.RESIDENTIAL TECH [address] [place] [address] Xr Imaging Referral ID Status Reason Start Date Expiration Date V isits Requested Visits Authorized [id number] Closed Auto-Generate d Referral 12/26/2021 01/25/2023 1 1 * Diagnostic Procedure Only (Urgent) - Closed Specialty Diagnoses / Procedures Referred By Contac t Referred To Contact XR IMAGING Diagnoses Pain of left lower extremity due to injury Procedures XR TOE AP/LAT/OBL LEFT RADEX TOE MINIMUM 2 VIEWS Angelo Jean-Baptiste APRN.RESIDENTIAL TECH [address] [place] [address] Xr Imaging Referral ID Status Reason Start Date Expiration Date V isits Requested Visits Authorized [id number] Closed Auto-Generate d Referral 12/26/2021 01/25/2023 1 1 [facility] Summary Purpose Family History No Family History Records FoundNo Family History Records FoundNo Family History Records FoundNo Family History Records Found Advance Directives No Advanced Directives Records FoundNo Advanced Directives Records FoundNo Advanced Directives Records FoundNo Advanced Directives Records Found Additional Source Comments INFORMATION SOURCE (unrecogn ized section and content) DATE CREATED AUTHOR AUTHOR'S ORGANIZ ATION 02/15/2022 [facility] DATE CREATED AUTHOR AUTHOR'S ORGANIZ ATION 01/04/2023 [facility] ([place]) DATE CREATED AUTHOR AUTHOR'S ORGANIZ ATION 06/30/2023 [facility] Care Teams (unrecognized sec tion and content) Mail Messenger Relationship Specialty Start Date End Date Catrachita Ham [address] [place] [address] PCP - General Internal Medicine 04/20/20 Mail Messenger Relationship Specialty Start Date End Date Catrachita Ham MD PCP - General Internal Medicine 04/26/19 Mail Messenger Relationship Specialty Start Date End Date Catrachita Ham MD PCP - General Internal Medicine 04/26/19 Mail Messenger Relationship Specialty Start Date End Date Catrachita Ham MD PCP - General Internal Medicine 04/26/19 Mail Messenger Relationship Specialty Start Date End Date Catrachita Ham MD PCP - General Internal Medicine 04/26/19 Source Comments (unrecognize d section and content) In the event this informatio n is protected by the Federal Confidentiality of Alcohol and Drug Abuse Patient Records regulations: The Federal rules restrict any use of the information to criminally investigate or prosecute any alcohol or drug abuse patient.[facility] the event this information is protected by the Federal Confidentiality of Alcohol and Drug Abuse Patient Records regulations: The Federal rules restrict any use of the information to criminally investigate or prosecute any alcohol or drug abuse patient.[facility] the event this information is protected by the Federal Confidentiality of Alcohol and Drug Abuse Patient Records regulations: The Federal rules restrict any use of the information to criminally investigate or prosecute any alcohol or drug abuse patient.[facility] the event this information is protected by the Federal Confidentiality of Alcohol and Drug Abuse Patient Records regulations: The Federal rules restrict any use of the information to criminally investigate or prosecute any alcohol or drug abuse patient.[facility] Reason for Visit (unrecogniz ed section and content) Reason Comments Knee Pain and left big toe gilles n, patient fell on Reason Comments Overactive Bladder Specialty Diagnoses / Procedures Referred By Contac t Referred To Contact Diagnoses OAB (overactive bladder) Urinary incontinence, unspecified type Procedures CONSULT TO FEMALE UROLOGY/URO GYNECOLOGY OFFICE/OUTPATIENT [facility] 60-74 MINUTES Mahsa Snell APRN.RESIDENTIAL TECH [address] [place] [address] Referral ID Status Reason Start Date Expiration Date V isits Requested Visits Authorized [id number] Closed PCP Requested Referral 10/31/2021 10/31/2022 1 1 Reason Comments New Pain Care Team (unrecognized sect ion and content) Care Team Personnel Name: CATRACHITA HAM MD Member Role: Primary Care Physician Address: Address: [facility] [place] [address]- Name: Alyssa Dunbar RN Position: AO RN Member Role: RN Name: MD MAMADOU CONNELLY MD Position: ED Physician Member Role: ED Physician Address: Address: [facility] [address] [place] [address]- Name: PATO Baker Position: AO RN Member Role: ED RN Care Team Personnel Name: CATRACHITA HAM MD Member Role: Primary Care Physician Address: Address: [address] [place] [address]- Name: IRINA BUNCH Position: ED Physician Member Role: ED Physician Address: Address: [address] [place] [address]- Name: CAROLINA PALACIOS DO Position: Resident Member Role: Resident Address: Address: [address] [place] [address]- Name: PATO Baker Position: AO RN Member [...] BE BASED ON THE PRIMARY CLINICAL RECORDS. [facility] [employer] [facility]. provides no warranty or guarantee of the accuracy or completeness of information in this document.
[2023-08-20 14:09] LABS: ANTINUCLEAR ANTIBODIES DIRECT Negative (Negative); PROEL- A/G Ratio 1.1 (0.7-1.7); PROEL- Albumin 3.1 g/dL (2.9-4.4); PROEL- Alpha-1 Globulin 0.2 g/dL (0.0-0.4); PROEL- Alpha-2 Globulin 0.8 g/dL (0.4-1.0); PROEL- Beta Globulin 1.1 g/dL (0.7-1.3); PROEL- Gamma Globulin 0.8 g/dL (0.4-1.8); PROEL- Globulin, Total 2.9 g/dL (2.2-3.9); PROEL-M-Spike Comment: g/dL (Not Observed)
== END | disposition home or self-care (01) ==
PROVIDERS: PCP Family Medicine; Referring Provider Urology; Visit Provider Urology
DX: R31.1 Benign essential microscopic hematuria (principal); M79.10 Myalgia, unspecified site; R20.0 Anesthesia of skin; R73.01 Impaired fasting glucose
CPT/HCPCS: 36415; 80053; 80061; 82607; 82728; 83036; 83735; 84165; 84443; 84550; 85025; 85652; 86038; 86140; 86431

== ENCOUNTER → 2023-09-24 | Outpatient (CLI) | payer MEDICARE, MEDICAID, SELFPAY | END | disposition home or self-care (01) | LOC: SL 10:12 | PROVIDERS: PCP Family Medicine; Referring Provider Internal Medicine; Visit Provider Internal Medicine | DX: R69 Illness, unspecified (principal) ==

== ENCOUNTER → 2024-03-05 | Outpatient (CLI) | payer MEDICARE, MEDICAID, SELFPAY ==
[2024-03-05 12:27] LABS: Hematocrit 45.1 % (37-47); Hemoglobin 13.9 g/dL (12.0-15.0); Mean Corp Hgb Conc 30.8 g/dL (32-36); Mean Corpuscular Hgb 29.2 pg (27.0-32.0); Mean Corpuscular Volume 94.7 fL (81-99); Mean Platelet Vol. 10.7 fl (6.2-12.0); Platelet Count 202 K/mm3 (150-450); RBC Distribution Width CV 14.2 % (11.6-14.6); RBC Distribution Width SD 50.2 fl (35.1-43.9); Red Blood Count 4.76 M/mm3 (4.2-5.4); White Blood Count 3.7 K/mm3 (4.4-11.0)
[2024-03-05 12:43] LABS: Vitamin D,25 Hydroxy 26.3 ng/mL
[2024-03-05 12:53] LABS: ALB/GLOB Ratio 0.9 RATIO (0.9-2.4); AST(SGOT) 66 U/L (15-37); Alanine Aminotransfer ALT/SGPT 74 U/L (13-56); Albumin, Serum 3.2 g/dL (3.2-5.0); Alkaline Phosphatase 111 U/L (45-117); Anion Gap 5 (5-15); BUN 14 mg/dL (7-18); BUN/Creat Ratio 16.4 RATIO (10-20); Calcium,Total 9.2 mg/dL (8.5-10.1); Chloride 104 mmol/L (98-107); Creatinine, Serum 0.85 mg/dL (0.55-1.02); EST Glomerular Filtration Rate 71 mL/min (>60); Est Glom Filt Rate - Afr Amer 85 mL/min (>60); Globulin 3.7 g/dL (2.2-4.2); Glucose 86 mg/dL (74-106); Potassium 4.1 mmol/L (3.5-5.1); Protein, Total 6.9 g/dL (6.4-8.2); Sodium Level 138 mmol/L (136-145)
== END | disposition home or self-care (01) ==
LOC: MFPLAB 09:56
PROVIDERS: PCP Family Medicine; Visit Provider Family Medicine
DX: R53.83 Other fatigue (principal)
CPT/HCPCS: 36415; 80053; 82306; 84443; 85027

== ENCOUNTER 2024-04-16 10:47 | Outpatient (RCR) | payer MEDICARE, MEDICAID, SELFPAY | END 2024-04-23 23:59 | LOC: NS 10:47 | PROVIDERS: PCP Family Medicine; Referring Provider Family Medicine; Visit Provider Family Medicine | DX: Z71.3 Dietary counseling and surveillance (principal); E66.01 Morbid (severe) obesity due to excess calories; R73.01 Impaired fasting glucose; Z68.43 Body mass index [BMI] 50.0-59.9, adult | CPT/HCPCS: 97802 ==

== ENCOUNTER → 2024-12-15 | Outpatient (CLI) | payer MEDICARE, MEDICAID, SELFPAY | END | disposition home or self-care (01) | LOC: LABSPEC 14:08 | PROVIDERS: PCP Family Medicine | DX: R35.0 Frequency of micturition (principal) | CPT/HCPCS: 87086; 87088 ==

== ENCOUNTER 2025-04-20 11:11 | Outpatient (CLI) | payer MEDICARE, MEDICAID, SELFPAY ==
[2025-04-20 13:18] LABS: AST(SGOT) 46 U/L (<=31); Alanine Aminotransfer ALT/SGPT 92 U/L (<=34); Albumin, Serum 3.8 g/dL (3.4-4.8); Alkaline Phosphatase 122 U/L (35-104); Anion Gap 7 (5-15); BUN 20 mg/dL (4-19); BUN/Creat Ratio 28.7 RATIO (10-20); Calcium,Total 9.3 mg/dL (7.6-11.0); Carbon Dioxide 29.8 mmol/L (21.0-32.0); Chloride 104 mmol/L (98-108); Cholesterol 205 mg/dL (<=200); Globulin 2.7 g/dL (2.2-4.2); Glucose 85 mg/dL (70-99); Low Density Lipoprotein Calc. 106 mg/dL; Potassium 4.4 mmol/L (3.3-5.1); Triglycerides 72 mg/dL; Very Low Density Lipoprotein 14 mg/dL (5-40); Vitamin D,25 Hydroxy 26.1 ng/mL (30-100); cholesterol:hdl ratio screen 2.39
[2025-04-20 15:16] LABS: Hematocrit 43.3 % (37-47); Hemoglobin 14.0 g/dL (12.0-15.0); Mean Corp Hgb Conc 32.3 g/dL (32-36); Mean Corpuscular Volume 92.9 fL (81-99); Mean Platelet Vol. 10.4 fl (6.2-12.0); Platelet Count 215 K/mm3 (150-450); RBC Distribution Width CV 13.1 % (11.6-14.6); RBC Distribution Width SD 44.5 fl (35.1-43.9); Red Blood Count 4.66 M/mm3 (4.2-5.4); White Blood Count 4.7 K/mm3 (4.4-11.0)
== END 2025-04-20 23:59 | disposition home or self-care (01) ==
LOC: MTLAB 11:12
PROVIDERS: PCP Family Medicine; Referring Provider Family Medicine; Visit Provider Family Medicine
DX: E78.5 Hyperlipidemia, unspecified (principal); E66.01 Morbid (severe) obesity due to excess calories; R77.0 Abnormality of albumin; Z13.1 Encounter for screening for diabetes mellitus
CPT/HCPCS: 36415; 80053; 80061; 82306; 83036; 84443; 85027